=== PATIENT | female | born 1955 | race Caucasian/White ===

== ENCOUNTER 2018-03-06 17:25 | Observation (INO) ==
[~2018-03-06 17:25] MED LIST: Insulin LISPRO 300 UNITS/3 ML VIAL SQ SCH
--- NOTE | 2018-03-06 17:54 | Emergency Department Note ---
Disposition Clinical Impression: Weakness generalized Disposition: Admitted As Inpatient Condition: Fair Referrals: Rebecca Champion, ZURDO [Primary Care Provider] - Forms: ED Satisfaction Letter, Work/School Release Time of Disposition: 19:59 (Dr Matthew) Weakness HPI - General Chief complaint: ED General Medical Stated complaint: pain Time Seen by Provider: 03/06/18 17:25 Source: patient Mode of arrival: wheelchair Limitations: no limitations Nursing Notes Reviewed: Yes Vital Signs Reviewed: Yes - History of Present Illness HPI Narrative: 62-year-old female presents today secondary to progressive weakness and multiple falls in the last couple of weeks. The patient came in today secondary to fall yesterday hitting her head as well as reinjuring her left knee. Patient also complains of increasing lower extremity edema, dizziness and weakness. Today she was so weak that she landed on her left shoulder and subsequently hitting her right rib area. The patient denies any changes in her bladder or bowel habits but states decreasing by mouth intake. She says her dizziness as feeling faint and unsure if she has any associated palpitations. She denies any visual acuity changes or any focal weakness to any extremities. There is no reported slurring of her speech per her . 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 Denies: chest pain, confusion, dark stools, diaphoresis, dysuria, easy bruising, fever/chills, headaches, nausea/vomiting, myalgias, rash, shortness of breath, syncope - Related Data Home Medications Medication Instructions Recorded Confirmed Aspirin 81 mg PO DAILY 05/25/15 03/06/18 Gabapentin [Neurontin] 300 mg PO TID 05/25/15 03/06/18 Insulin Glargine,Hum.rec.anlog 47 unit SQ BID 05/25/15 03/06/18 [Lantus Solostar] Insulin Regular Human [Humulin R] 15 unit SQ TID 05/25/15 03/06/18 Isosorbide DInitrate [Isosorbide 30 mg PO BID 05/25/15 03/06/18 Dinitrate] LORazepam [Ativan] 0.5 mg PO BID 05/25/15 03/06/18 Metformin [Glucophage] 1,000 mg PO BIDWM 05/25/15 03/06/18 Metoprolol [Lopressor] 25 mg PO BID 05/25/15 03/06/18 Nitroglycerin 0.4 mg SL Q5MIN 05/25/15 03/06/18 Sertraline HCl [Zoloft] 50 mg PO HS 05/25/15 03/06/18 Simvastatin [Zocor] 20 mg PO HS 05/25/15 03/06/18 Lisinopril [Zestril] 10 mg PO DAILY 08/30/15 03/06/18 Ferrous Gluconate 324 mg PO DAILY 03/06/18 03/06/18 Lactulose 33 gm PO BID 03/06/18 03/06/18 Loratadine [Claritin] 10 mg PO DAILY 03/06/18 03/06/18 NIFEdipine [Nifedipine ER] 60 mg PO DAILY 03/06/18 03/06/18 Vit D3-Vit K/Berberine/Hops 1 each PO DAILY 03/06/18 03/06/18 [Ostera Tablet] Allergies Allergy/AdvReac Type Severity Reaction Status Date / Time Horse/Equine Containing Allergy Sneezing Verified 03/06/18 17:27 Products latex Allergy Rash Verified 03/06/18 17:27 All systems ED: reviewed and negative except as stated. 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 history - Social History Smoking Status: Never smoker Smokeless Tobacco Status: No Alcohol use: Reports: none Drug use: Reports: none Physical Exam - General Limitations: no limitations General appearance: alert - Head Head exam: atraumatic, normocephalic, normal inspection - Eye Eye exam: Present: normal appearance, PERRL, EOMI - ENT ENT exam: normal exam, normal oropharynx, mucous membranes moist - Neck Neck exam: Present: normal inspection, full ROM, trachea midline - Chest Chest inspection: Present: symmetric chest wall rise, tenderness (Tenderness to palpation on the right inferior anterior rib area) - Respiratory Respiratory exam: Present: normal lung sounds bilaterally - Cardiovascular Cardiovascular exam: Present: regular rate, normal rhythm, normal heart sounds - Abdominal Exam Abdominal exam: Present: soft, Non-Tender. Absent: tenderness, distention, guarding, rebound, rigidity - Extremities Exam Extremities exam: Present: full ROM, pedal edema - Expanded Lower Extremity Exam Hip/Pelvis exam: Present: normal inspection, full ROM Upper leg exam: Present: normal inspection, full ROM Knee exam: Present: tenderness (Tibial plateau tenderness to palpation on the left) Lower leg exam: Present: normal inspection, full ROM Ankle exam: Present: normal inspection, full ROM Foot/toe exam: Present: full ROM, tenderness (Point tenderness on the plantar aspect of the third phalanx) Neurovascular/Tendon exam: Absent: motor deficit, sensory deficit, tendon deficit - Back Exam Back exam: Present: normal inspection, full ROM. Absent: tenderness - Neurological Exam Neurological exam: Present: alert, oriented X3, CN II-XII intact, reflexes normal. Absent: normal gait (Needs assistance with ambulation), motor sensory deficit - Psychiatric Psychiatric exam: Present: normal affect, normal mood - Skin Skin exam: Present: warm, dry, intact, normal color Course Vital Signs Temperature 98 F 03/06/18 17:33 Pulse Rate 81 03/06/18 17:33 Respiratory Rate 16 03/06/18 17:33 Blood Pressure 110/86 03/06/18 17:33 O2 Sat by Pulse Oximetry 81 03/06/18 17:33 Temperature 98 F 03/06/18 17:33 Pulse Rate 81 03/06/18 17:33 Respiratory Rate 16 03/06/18 17:33 Blood Pressure 110/86 03/06/18 17:33 O2 Sat by Pulse Oximetry 81 03/06/18 17:33 Oxygen Delivery Oxygen Delivery Room Air Weakness - Differential Diagnosis Differential Diagnosis: Likely: anemia, rhabdomyolysis, dehydration, medication effect, stroke, metabolic, thyroid/endocrine disorder - Medical Records Medical records reviewed: Yes I reviewed the patient's medical records. - Lab Data Lab results reviewed: Yes I reviewed the patient's lab results. Result diagrams: 03/06/18 18:17 03/06/18 18:17 Lab Results 03/06/18 03/06/18 03/06/18 Range/Units 18:17 18:17 18:17 WBC 8.2 (4.3-11.1) K/mcL RBC 4.84 (3.82-4.97) M/mcL Hgb 14.8 (11.5-15.4) g/dL Hct 41.9 (35.3-44.9) % MCV 86.6 (83.0-100.0) fL MCH 30.6 (28.0-33.3) pg MCHC 35.3 (31.6-35.5) g/dL RDW 12.9 (11.5-14.5) % Plt Count 105 L (140-400) K/mcL MPV 11.8 (9.4-12.4) fL Immature Gran % 0.2 (0-4) % Seg Neutrophils % 72.1 % Lymphocytes % 19.2 % Monocytes % 7.1 % Eosinophils % 0.9 % Basophils % 0.5 % Neutrophils # 5.9 (1.6-8.9) K/mcL Lymphocytes # 1.6 (0.6-4.6) K/mcL Monocytes # 0.6 (0.0-1.3) K/mcL Eosinophils # 0.1 (0.0-0.6) K/mcL Basophils # 0.0 (0.0-0.2) K/mcL Sodium 136 (136-145) mEq/L Potassium 4.1 (3.5-5.1) mEq/L Chloride 98 (98-107) mEq/L Carbon Dioxide 25 (23-29) mEq/L BUN 17 (8-23) mg/dL Creatinine 0.72 (0.60-1.20) mg/dL Est GFR ( Amer) > 60 (> 60) Est GFR (Non-Af Amer) > 60 (> 60) BUN/Creatinine Ratio 24 (6-26) Glucose 338 H (70-105) mg/dL Calculated Osmolality 297 (280-300) Calcium 9.4 (8.6-10.3) mg/dL Magnesium 1.2 L (1.6-2.6) mg/dL Total Bilirubin 1.2 H (0.3-1.0) mg/dL AST 19 (13-39) Units/L ALT 22 (7-52) Units/L Alkaline Phosphatase 104 (34-104) Units/L Creatine Kinase 86 (30-223) Units/L Troponin I < 0.03 (< 0.04) ng/mL Serum Total Protein 7.1 (6.4-8.9) g/dL Albumin 3.8 (3.5-5.7) g/dL Globulin 3.3 (2.4-3.5) g/dL Albumin/Globulin Ratio 1.2 (1.1-2.2) TSH 2.305 (0.340-5.600) mcIU/mL - Radiology Data Radiology results reviewed: Yes I reviewed the patient's radiology results. 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 D/ / 03/06/2018 18:50:18 Brittney Newman MD / jane Interpreting Provider: Brittney Newman MD Chest CT 03/06/18 17:56 IMPRESSION: No evidence for acute traumatic injury to the chest. No discrete rib fracture. Findings suggestive of cirrhosis. D/ / Sherif Espinal MD / Sherif Espinal MD Interpreting Provider: Sherif Espinal MD Knee X-Ray 03/06/18 18:08 IMPRESSION: Mild degenerative osteoarthritis primarily in the patellofemoral compartment. No evidence of an acute injury. D/ / Jeff Armenta MD / Jeff Armenta MD Interpreting Provider: Jeff Armenta MD Foot X-Ray 03/06/18 18:10 IMPRESSION: Mild diffuse soft swelling. Vascular calcifications suggest diabetes. No evidence of osteomyelitis. Old healed fracture deformity of the right 3rd proximal phalanx. Plantar spur. D/ / Jeff Armenta MD / Jeff Armenta MD Interpreting Provider: Jeff Armenta MD - EKG Data EKG attestation: Yes I reviewed and interpreted this EKG. Rate: normal Rhythm: NSR [place]/QRS: left axis deviation Q waves: v1, v2 Interpretation: nonspecific ST-T wave changes
[2018-03-06 18:25] LABS: Basophils % 0.5 %; Eosinophils # 0.1 K/mcL (0.0-0.6); Eosinophils % 0.9 %; Hematocrit 41.9 % (35.3-44.9); Hemoglobin 14.8 g/dL (11.5-15.4); Immature Granulocytes % 0.2 % (0-4); Lymphocytes # 1.6 K/mcL (0.6-4.6); Lymphocytes % 19.2 %; Mean Corpuscular HGB Conc 35.3 g/dL (31.6-35.5); Mean Corpuscular Hemoglobin 30.6 pg (28.0-33.3); Mean Corpuscular Volume 86.6 fL (83.0-100.0); Mean Platelet Volume 11.8 fL (9.4-12.4); Monocytes # 0.6 K/mcL (0.0-1.3); Monocytes % 7.1 %; Neutrophils # 5.9 K/mcL (1.6-8.9); Platelet Count 105 K/mcL (140-400); Red Blood Count 4.84 M/mcL (3.82-4.97); Red Cell Distribution Width 12.9 % (11.5-14.5); Segmented Neutrophils % 72.1 %
[2018-03-06 18:41] LABS: Alanine Aminotransferase 22 Units/L (7-52); Albumin 3.8 g/dL (3.5-5.7); Albumin/Globulin Ratio 1.2 (1.1-2.2); Alkaline Phosphatase 104 Units/L (34-104); Aspartate Amino Transferase 19 Units/L (13-39); BUN/Creatinine Ratio 24 (6-26); Bilirubin,Total 1.2 mg/dL (0.3-1.0); Blood Urea Nitrogen 17 mg/dL (8-23); Calcium 9.4 mg/dL (8.6-10.3); Carbon Dioxide 25 mEq/L (23-29); Chloride 98 mEq/L (98-107); Globulin 3.3 g/dL (2.4-3.5); Glucose 338 mg/dL (70-105); Magnesium 1.2 mg/dL (1.6-2.6); Osmolality,Calculated 297 (280-300); Potassium 4.1 mEq/L (3.5-5.1); Sodium 136 mEq/L (136-145); Total Protein 7.1 g/dL (6.4-8.9); eGFR For African Americans > 60 (> 60); eGFR For Non-African Americans > 60 (> 60)
[2018-03-06 18:51] LABS: Troponin I < 0.03 ng/mL (< 0.04)
[2018-03-06 19:03] LABS: Thyroid Stimulating Hormone 2.305 mcIU/mL (0.340-5.600)
[2018-03-06] MEDS ORDERED: Magnesium Oxide 400 MG TABLET PO STA (19:10)
[2018-03-06] MEDS ORDERED: Lactulose 200 GM/300 ML (for enema) RC SCH (22:26)
[2018-03-06] MEDS ORDERED: Naloxone 0.4 MG/ML INJ IVP PRN (22:26)
[2018-03-06] MEDS ORDERED: Nitroglycerin 0.4 MG TAB.SUBL SL SCH (22:26)
[2018-03-06] MEDS ORDERED: Insulin DETEMIR 100 UNIT/ML per UNIT SQ ONE (23:15)
[2018-03-06] MEDS ORDERED: Lactulose 200 GM, Sodium Chloride IRRigation 700 ML RC SCH (23:15)
[2018-03-07] MEDS: Gabapentin 300 MG CAPSULE PO SCH ×4 (00:19→21:15)
[2018-03-07] MEDS: *HR* LORazepam 0.5 MG TABLET PO SCH ×2 (00:19→08:12)
[2018-03-07] MEDS: *HR* OxyCODONE Immed Rel 5 MG TABLET PO PRN (02:27)
[2018-03-07] MEDS: *HR* Metformin 500 MG TABLET PO SCH ×2 (08:11→16:48)
[2018-03-07] MEDS: Aspirin 81 MG TAB.CHEW PO SCH (08:12)
[2018-03-07] MEDS ORDERED: Insulin DETEMIR 100 UNIT/ML X5UNITS SQ SCH (09:00)
[2018-03-07] MEDS ORDERED: NIFEdipine XL (24 HR) 60 MG TAB.ER.24 PO SCH (09:00)
[2018-03-07] MEDS ORDERED: OSTERA PO SCH (09:00)
[2018-03-07] MEDS ORDERED: Loratadine 10 MG TABLET PO SCH (09:00)
[2018-03-07] MEDS ORDERED: Lactulose Oral Soln 20 GM/30 ML UDC PO SCH (09:00)
[2018-03-07] MEDS ORDERED: NIFEdipine XL (24 HR) 30 MG TAB.ER.24 PO SCH (09:00)
--- NOTE | 2018-03-07 10:26 | Internal Med History&Physical ---
Date of Encounter: 03/07/18 Time of Encounter: 09:50 Assessment and Plan (1) Multiple falls Current visit: Yes Status: Acute Possibly multifactorial etiology including orthostatic hypotension, post stroke effect, and medications. She will have physical therapy and occupational therapy evaluations. Orthostatic vital signs will be done and medications will be adjusted. (2) Hypertension Current visit: Yes Status: Chronic Will monitor blood pressure and check orthostatic vital signs. Qualifiers: Hypertension type: essential hypertension Qualified Code(s): I10 - Essential (primary) hypertension (3) Low vitamin D level Current visit: Yes Status: Acute Vitamin D level was 6 on 10/26/2017. Recheck in a.m. (4) Hypomagnesemia Current visit: Yes Status: Acute Magnesium level in emergency room was 1.2. Etiology not obvious. Will give supplemental magnesium and monitor labs. (5) Cirrhosis Current visit: No Status: Chronic Monitor LFTs. Albumin was normal at 3.8 in emergency room. INR was normal on 10/26/2017. Qualifiers: Hepatic cirrhosis type: unspecified hepatic cirrhosis Ascites presence: without ascites Qualified Code(s): K74.60 - Unspecified cirrhosis of liver (6) DM2 (diabetes mellitus, type 2) Current visit: No Status: Chronic Hemoglobin A1c was 8.4% on 04/07/2016. Recheck in a.m. Qualifiers: Diabetes mellitus longterm insulin use: with terminal operator use Diabetes mellitus complication status: without complication Qualified Code(s): E11.9 - Type 2 diabetes mellitus without complications; Z79.4 - intermediate card tender (current) use of insulin Internal Medicine - H&P: HPI Chief complaint: Weakness and multiple falls Admitted From: Emergency Dept Plans for Post Hospital Care: Home History of present illness: Ms. Jenkins is a 62 year old female who came to emergency room stating she has had increasing falls over the past 4 months. Her most recent fall was March 05. She states she feels dizzy and lightheaded but does not have syncope or near syncope. She reports she loses her balance and falls to the floor despite using a cane for walking assistance. She sustained left proximal humerus fracture October 2017 secondary to a fall. She was evaluated in emergency room and admitted to [facility] for ongoing care needs. She has DJD but denies other bone joint or muscle disorders. She denies past CVA although head CT in emergency room showed large old right hemispheric infarct. She denies seizures. Past Med Surg Social Fam HX - Past Medical History Medical history: asthma, diabetes, hyperlipidemia, hypertension, liver disease, other Additional medical history: Metabolic syndrome Psychiatric history: anxiety, depression - Past Surgical History Surgical History: cataract, cholecystectomy Additional surgical history: cardiac cath- no stents - Social History Smoking Status: Never smoker Smokeless Tobacco Status: No Alcohol use: none Drug use: none - Family History Mother Hx Family Cardiac Disorders: Yes (CAD) Hx Family Cancer: No (No colon or female cancer in family) Internal Medicine - H&P: Meds Aspirin 81 mg PO DAILY 05/25/15 [History] Gabapentin [Neurontin] 300 mg PO TID 05/25/15 [History] Insulin Glargine,Hum.rec.anlog [Lantus Solostar] 47 unit SQ DAILY 05/25/15 [ History] Insulin Regular Human [Humulin R] 15 unit SQ TID 05/25/15 [History] Isosorbide DInitrate [Isosorbide Dinitrate] 30 mg PO BID 05/25/15 [History] LORazepam [Ativan] 0.5 mg PO BID 05/25/15 [History] Metformin [Glucophage] 1,000 mg PO BIDWM 05/25/15 [History] Metoprolol [Lopressor] 25 mg PO BID 05/25/15 [History] Nitroglycerin 0.4 mg SL Q5MIN 05/25/15 [History] Sertraline HCl [Zoloft] 50 mg PO HS 05/25/15 [History] Simvastatin [Zocor] 20 mg PO HS 05/25/15 [History] Lisinopril [Zestril] 10 mg PO DAILY 08/30/15 [History] Ferrous Gluconate 324 mg PO DAILY 03/06/18 [History] Lactulose 33 gm PO BID 03/06/18 [History] Loratadine [Claritin] 10 mg PO DAILY 03/06/18 [History] NIFEdipine [Nifedipine ER] 60 mg PO DAILY 03/06/18 [History] Vit D3-Vit K/Berberine/Hops [Ostera Tablet] 1 each PO DAILY 03/06/18 [History] 3 Allergy/AdvReac Type Severity Reaction Status Date / Time Horse/Equine Containing Allergy Sneezing Verified 03/06/18 17:27 Products latex Allergy Rash Verified 03/06/18 17:27 All Systems PM: A 10-system review of systems was performed and is negative for pertinent findings except as documented above in the HPI. Review of systems: Gen.: She states her weight has been stable the past few months Cardiovascular: She has history of hypertension but denies IA heart failure angina DVT or pulmonary embolus. Echocardiogram done 06/15/2016 showed LVEF of 60-65% with mild diastolic dysfunction reported. There was mild aortic regurgitation and mild mitral regurgitation. The estimate RVSP was 25 mmHg. The interventricular septum thickness was increased at 1.37 cm. Posterior wall thickness was normal at 1.08 cm. Regadenoson stress test 06/15/2016 showed EKG and perfusion imaging negative for ischemia. Respiratory: She is a lifelong nonsmoker. She thinks she was told she had COPD in the past but does not use home oxygen. She denies other lung disease. GI: She has been diagnosed with cirrhosis secondary to NAFLD. She has had cholecystectomy. She denies other disorders of her liver or exocrine pancreas : She denies hematuria dysuria or kidney stones. She reports frequent urination. Neurologic: As per history of present illness Endocrine: She was diagnosed with DM 2 approximately 2008. She has hyperlipidemia but denies thyroid disease Hematology/oncology: She denies blood disorders cancers or anemia Psychiatric: She has anxiety and depression but denies other mental health issues. [place] skeletal: As per history of present illness - Constitutional Vitals: Temp Pulse Resp BP Pulse Ox 98.3 F 80 16 94/63 97 03/07/18 10:19 03/07/18 10:19 03/07/18 10:19 03/07/18 10:19 03/07/18 10:19 Exam: Gen.: She is a well-developed well-nourished female resting in bed who appears in no acute distress HEENT: Head is atraumatic and normocephalic. She has significant alopecia. Eyes: EOMI. There is no scleral icterus. Mouth: Mucosa is moist. Neck: Supple and nontender. There is no thyromegaly or adenopathy noted. Heart: Regular without murmurs gallops or ectopics Lungs: No wheezes or crackles are heard. Abdomen: Soft and nontender. No masses or guarding are noted. Extremities: There is no cyanosis edema or clubbing noted. Dorsalis pedis and posterior tibial pulses are trace to 1+ palpable bilaterally. She has had a traumatic avulsion of the left fourth toenail. Neurologic: Mental status: She is talkative and a good historian. Cranial nerves: Smile is symmetric. Forehead wrinkles bilaterally. Tongue protrudes midline. EOMI. Motor: There is no pronator drift. Cerebellar: Finger to nose is intact bilaterally. Skin: Warm and dry. She has superficial abrasion/laceration of her left patella area from recent fall. Internal Med - H&P Results - Labs CBC & Chem 7: 03/06/18 18:17 03/06/18 18:17
[2018-03-07] MEDS: NIFEdipine XL (24 HR) 30 MG TAB.ER.24 PO SCH (10:57)
[2018-03-07] MEDS: Insulin LISPRO 300 UNITS/3 ML VIAL SQ SCH ×3 (11:02→16:49)
[2018-03-07] MEDS: Insulin DETEMIR 100 UNIT/ML X5UNITS SQ SCH ×2 (11:12→21:08)
[2018-03-07] MEDS: Ondansetron 4 MG/2 ML VIAL IVP PRN (11:12)
[2018-03-07] MEDS: OSTERA PO SCH (11:13)
[2018-03-07] MEDS ORDERED: Nitroglycerin 0.4 MG TAB.SUBL SL PRN (21:01)
[2018-03-07] MEDS ORDERED: Insulin DETEMIR 100 UNIT/ML per UNIT SQ ONE (21:04)
[2018-03-07] MEDS: Magnesium Oxide 400 MG TABLET PO SCH (21:15)
[2018-03-08 07:25] LABS: Phosphorous 4.4 mg/dL (2.7-4.5)
[2018-03-08] MEDS: Insulin LISPRO 300 UNITS/3 ML VIAL SQ SCH ×3 (07:36→16:01)
[2018-03-08] MEDS: Aspirin 81 MG TAB.CHEW PO SCH (08:15)
[2018-03-08] MEDS: Magnesium Oxide 400 MG TABLET PO SCH ×2 (08:16→23:13)
[2018-03-08] MEDS: Gabapentin 300 MG CAPSULE PO SCH ×3 (08:16→23:13)
[2018-03-08] MEDS: NIFEdipine XL (24 HR) 30 MG TAB.ER.24 PO SCH (08:16)
[2018-03-08] MEDS: *HR* Metformin 500 MG TABLET PO SCH ×2 (08:16→17:11)
[2018-03-08] MEDS: Lactulose Oral Soln 20 GM/30 ML UDC PO SCH (08:17)
[2018-03-08] MEDS: *HR* OxyCODONE Immed Rel 5 MG TABLET PO PRN ×2 (08:24→23:28)
[2018-03-08 09:43] LABS: Estimated Average Glucose 249 mg/dl; Hemoglobin A1C 10.3 %
[2018-03-08] MEDS: Insulin DETEMIR 100 UNIT/ML X5UNITS SQ SCH (09:45)
--- NOTE | 2018-03-08 11:45 | Internal Med Progress Note ---
Date of Encounter: 03/08/18 Time of Encounter: 11:35 - Assessment and plan (1) Multiple falls Current Visit: Yes Status: Acute Assessment and plan: March 08. Continue therapy interventions. Orthostatic vital signs not recorded. Blood pressure appears to be borderline low frequently. Will discontinue Procardia. She states she is willing to go to SNF for ongoing therapy needs. (2) Hypertension Current Visit: Yes Status: Chronic Assessment and plan: March 08. Blood pressure borderline low periodically. Discontinue Procardia. Qualifiers: Hypertension type: essential hypertension Qualified Code(s): I10 - Essential (primary) hypertension (3) Low vitamin D level Current Visit: Yes Status: Acute Assessment and plan: March 08. Vitamin D level pending (4) Hypomagnesemia Current Visit: Yes Status: Acute Assessment and plan: March 08. Continue magnesium supplement. Recheck labs in a.m. (5) Cirrhosis Current Visit: No Status: Chronic Assessment and plan: March 08. Monitor labs. Qualifiers: Hepatic cirrhosis type: unspecified hepatic cirrhosis Ascites presence: without ascites Qualified Code(s): K74.60 - Unspecified cirrhosis of liver (6) DM2 (diabetes mellitus, type 2) Current Visit: No Status: Chronic Assessment and plan: March 08. Hemoglobin A1c has risen to 10.3 %. Continue Glucophage, Levemir and Accu-Cheks with SSI. Qualifiers: Diabetes mellitus rat exterminator insulin use: with rat exterminator use Diabetes mellitus complication status: without complication Qualified Code(s): E11.9 - Type 2 diabetes mellitus without complications; Z79.4 - alf (current) use of insulin - Subjective Interval history: March 08. She has no new complaints. - Constitutional Vitals: Temp Pulse Resp BP Pulse Ox 98.1 F 67 16 103/62 96 03/08/18 10:25 03/08/18 10:25 03/08/18 10:25 03/08/18 10:25 03/08/18 10:25 Exam: She is resting comfortably in bed and appears in no acute distress. She is more alert and has faster response times to questions. Her affect is overall cheerful. I reviewed her medications and lab results. Internal Medicine: Result - Labs CBC & Chem 7: 03/06/18 18:17 03/06/18 18:17 Consult Discharge Plan - Plan Referrals: Rebecca Champion CNP [Primary Care Provider] - 1 week
[2018-03-08] MEDS: OSTERA PO SCH (13:19)
[2018-03-08] MEDS: Ondansetron 4 MG/2 ML VIAL IVP PRN (15:47)
--- NOTE | 2018-03-08 20:01 | Electrocardiograph Report ---
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
[2018-03-08] MEDS ORDERED: Insulin DETEMIR 100 UNIT/ML per UNIT SQ ONE (23:01)
[2018-03-09] MEDS: Insulin DETEMIR 100 UNIT/ML X5UNITS SQ SCH ×2 (00:27→08:51)
[2018-03-09] MEDS: Insulin LISPRO 300 UNITS/3 ML VIAL SQ SCH (08:39)
[2018-03-09] MEDS: Magnesium Oxide 400 MG TABLET PO SCH (08:48)
[2018-03-09] MEDS: Gabapentin 300 MG CAPSULE PO SCH (08:48)
[2018-03-09] MEDS: Aspirin 81 MG TAB.CHEW PO SCH (08:48)
[2018-03-09] MEDS: *HR* Metformin 500 MG TABLET PO SCH (08:48)
[2018-03-09] MEDS: Lactulose Oral Soln 20 GM/30 ML UDC PO SCH (08:49)
[2018-03-09] MEDS: OSTERA PO SCH (08:51)
[2018-03-09] MEDS: NIFEdipine XL (24 HR) 30 MG TAB.ER.24 PO SCH (08:51)
[2018-03-09 12:15] VITALS: BP 107/70
--- NOTE | 2018-03-09 12:18 | Discharge Summary ---
Date of Encounter: 03/09/18 Time of Encounter: 12:10 - Discharge Diagnosis (1) Multiple falls Priority: Primary Status: Acute (2) Hypertension Priority: Secondary Status: Chronic Qualifiers: Hypertension type: essential hypertension Qualified Code(s): I10 - Essential (primary) hypertension (3) Low vitamin D level Priority: Secondary Status: Resolved (4) Hypomagnesemia Priority: Secondary Status: Acute (5) Cirrhosis Priority: Secondary Status: Chronic Qualifiers: Hepatic cirrhosis type: unspecified hepatic cirrhosis Ascites presence: without ascites Qualified Code(s): K74.60 - Unspecified cirrhosis of liver (6) DM2 (diabetes mellitus, type 2) Priority: Secondary Status: Chronic Qualifiers: Diabetes mellitus mcc insulin use: with ocean transportation intermediary use Diabetes mellitus complication status: without complication Qualified Code(s): E11.9 - Type 2 diabetes mellitus without complications; Z79.4 - detention (current) use of insulin Hospital course: Ms. Jenkins is a 62 year old female who came to emergency room stating she has had increasing falls over the past 4 months. Her most recent fall was March 05. She states she feels dizzy and lightheaded but does not have syncope or near syncope. She reports she loses her balance and falls to the floor despite using a cane for walking assistance. She sustained left proximal humerus fracture October 2017 secondary to a fall. She was evaluated in emergency room and admitted to [facility] for ongoing care needs. Initial orders were written by the emergency room physician. I saw her on March 07 and performed a history and physical. Procardia was decreased and eventually discontinued. Blood pressure remained satisfactory. She will remain off this at discharge. Physical therapy and occupational therapy evaluations were done. It was felt she would benefit from ongoing therapy and she will be discharged to [facility]. Vitamin D level returned normal at 42. TSH was normal at 2.305. Magnesium level in emergency room returned low at 1.2. She will be given supplemental magnesium and labs will be monitored. Hemoglobin returned elevated at 10.3%. Medication doses were adjusted and blood sugars will be monitored at the [facility]. On March 09 arrangements were complete for her to be discharged to [facility]. Anticipated length of stay is 1-2 weeks. She will follow with me there. - Time Spent with Patient Total time spent providing and/or coordinating discharge services: - Discharge Medications Home Medications: Aspirin 81 mg PO DAILY 05/25/15 [History] Gabapentin [Neurontin] 300 mg PO TID 05/25/15 [History] Insulin Glargine,Hum.rec.anlog [Lantus Solostar] 47 unit SQ DAILY 05/25/15 [ History] Insulin Regular Human [Humulin R] 15 unit SQ TID 05/25/15 [History] Isosorbide DInitrate [Isosorbide Dinitrate] 30 mg PO BID 05/25/15 [History] LORazepam [Ativan] 0.5 mg PO BID 05/25/15 [History] Metformin [Glucophage] 1,000 mg PO BIDWM 05/25/15 [History] Metoprolol [Lopressor] 25 mg PO BID 05/25/15 [History] Nitroglycerin 0.4 mg SL Q5MIN 05/25/15 [History] Sertraline HCl [Zoloft] 50 mg PO HS 05/25/15 [History] Simvastatin [Zocor] 20 mg PO HS 05/25/15 [History] Lisinopril [Zestril] 10 mg PO DAILY 08/30/15 [History] Ferrous Gluconate 324 mg PO DAILY 03/06/18 [History] Lactulose 33 gm PO BID 03/06/18 [History] Loratadine [Claritin] 10 mg PO DAILY 03/06/18 [History] NIFEdipine [Nifedipine ER] 60 mg PO DAILY 03/06/18 [History] Vit D3-Vit K/Berberine/Hops [Ostera Tablet] 1 each PO DAILY 03/06/18 [History] Allergies/Adverse Reactions: 3 Allergy/AdvReac Type Severity Reaction Status Date / Time Horse/Equine Containing Allergy Sneezing Verified 03/06/18 17:27 Products latex Allergy Rash Verified 03/06/18 17:27 Date of admission: 03/06/18 20:08 Primary care physician: Rebecca Champion Consults: 03/06/18 22:47 Consult to Care Transition Mgr [CONS] Routine Reason for SW Consult: Multiple falls when alone at home. 03/07/18 10:21 Consult to Occupational Therapy [CONS] Routine Comment: Evaluate, develop and implement POC Reason for Consult: Weakness and multiple falls Does patient have active BEDREST order?: No Is patient medically & hemodynamically stable?: Yes Patient assessed for mobility or mobilized this visit?: Yes Consult to Physical Therapy [CONS] Routine Comment: Evaluate, develop and implement POC Reason for Consult: Weakness and multiple falls Does patient have active BEDREST order?: No Is patient medically & hemodynamically stable?: Yes Patient assessed for mobility or mobilized this visit?: Yes - Constitutional Vitals: Temp Pulse Resp BP Pulse Ox 97.6 F 67 16 107/70 100 03/09/18 11:38 03/09/18 11:38 03/09/18 11:38 03/09/18 11:38 03/09/18 11:38 - Patient Status Disposition: Transfer SNF Condition: Fair - Discharge Instructions - Diet and Activity Activity: as per physical therapy Diet: diabetic diet
--- NOTE | 2018-03-09 12:29 | Physician Discharge Referral ---
ExtendedCare Referral Info Transfer To: [facility] Provider in Charge: Vipul Provider in Charge after Transfer: PCP (Vipul) - Diagnosis (1) Multiple falls Priority: Primary Status: Acute (2) Hypertension Priority: Secondary Status: Chronic (3) Low vitamin D level Priority: Secondary Status: Resolved (4) Hypomagnesemia Priority: Secondary Status: Acute (5) Cirrhosis Priority: Secondary Status: Chronic (6) DM2 (diabetes mellitus, type 2) Priority: Secondary Status: Chronic Prognosis: Good Aware of Diagnosis: Patient Aware of Prognosis: Patient - Transfer Medications Prescriptions: Magnesium Oxide [Mag-Ox] 400 mg PO DAILY 30 Days tablet Home Medications: Aspirin 81 mg PO DAILY 05/25/15 [History] Gabapentin [Neurontin] 300 mg PO TID 05/25/15 [History] Isosorbide DInitrate [Isosorbide Dinitrate] 30 mg PO BID 05/25/15 [History] Metformin [Glucophage] 1,000 mg PO BIDWM 05/25/15 [History] Metoprolol [Lopressor] 25 mg PO BID 05/25/15 [History] Nitroglycerin 0.4 mg SL Q5MIN 05/25/15 [History] Sertraline HCl [Zoloft] 50 mg PO HS 05/25/15 [History] Simvastatin [Zocor] 20 mg PO HS 05/25/15 [History] Lisinopril [Zestril] 10 mg PO DAILY 08/30/15 [History] Vit D3-Vit K/Berberine/Hops [Ostera Tablet] 1 each PO DAILY 03/06/18 [History] Insulin Glargine,Hum.rec.anlog [Lantus Solostar] 60 unit SQ DAILY #0 03/09/18 [ Rx] Magnesium Oxide [Mag-Ox] 400 mg PO DAILY 30 Days tablet 03/09/18 [Rx] Allergies/Adverse Reactions: 3 Allergy/AdvReac Type Severity Reaction Status Date / Time Horse/Equine Containing Allergy Sneezing Verified 03/06/18 17:27 Products latex Allergy Rash Verified 03/06/18 17:27 - Respiratory Orders Smoking Cessation: Smoking cessation has been advised. For more information, call the [place] Tobacco Quit Line at 9-637-OYYQ-NOW. - Lab Orders Lab Orders: Other (include drug levels w/frequency) (CBC with differential, BMP , lipid profile, magnesium level in 5 days) - Mobility Orders Ambulate - Rehabiliation Orders Rehab Potential: Fair Rehab Orders: Evaluation for Physical Therapy, Evaluation for Occupational Therapy CERTIFICATION: I certify that the transfer of the above named patient to an Extended Care Facility is necessary for the continuing treatment of the diagnosis listed. The above information is true and accurate reflection of patient's current condition. Confidential - Redisclosure prohibited without a patient's written consent.
== END 2018-03-09 13:40 ==
LOC: EMEROOPIK 17:25 → INPPIK 17:25
PROVIDERS: ADMIT Emergency Medicine; ATTEND Internal Medicine

== ENCOUNTER 2018-04-11 18:17 | Observation (INO) ==
--- NOTE | 2018-04-11 18:47 | Emergency Department Note ---
Disposition Clinical Impression: Generalized weakness, Hyponatremia, Hyperglycemia, Hyperbilirubinemia, Elevated lactic acid level Vomiting Qualifiers: Vomiting type: unspecified Vomiting Intractability: non-intractable Nausea presence: with nausea Qualified Code(s): R11.2 - Nausea with vomiting, unspecified Disposition: Admitted As Inpatient Condition: Fair Referrals: Rebecca Champion CNP [Primary Care Provider] - Forms: ED Satisfaction Letter Time of Disposition: 21:32 Nausea/Vomiting/Diarrhea HPI - General Chief complaint: ED Abdominal Pain Stated complaint: NAUSEA/VOMITING Time Seen by Provider: 04/11/18 18:39 Source: patient, family Mode of arrival: private vehicle Limitations: no limitations Nursing Notes Reviewed: Yes Vital Signs Reviewed: Yes - History of Present Illness HPI Narrative: Patient reports that she has generalized weakness and currently is unable to walk. She is noted little increasing urinary frequency but does not have much other systemic complaints other than nausea, vomiting some diarrhea. She states she has thrown up about 4 times today and this is been productive of bile without blood or mucus. She reports "slight abdominal pain which is only described as "not a lot". She states she has occasional diarrhea and she states she takes medicine 3 times a day that makes her have diarrhea. She states she has liver disease and this sounds to likely be lactulose. She denies a recent fall or injury but has had falls in the past because of weakness. She denies chest pain, palpitations, headaches or visual changes. She states she only gets headaches "once in the while that are not bad". She reports occasional chronic cough has been going on forever and occasionally produces some phlegm. She denies shortness of breath. She states she had a feeling of some fevers and chills last night but did not check her temperature. She denies any extremity injuries nor extremity numbness, tingling or weakness. She denies ill exposures, foodborne concerns, recent antibiotics or travel. She states she recently was in rehabilitation for weakness and just got out on April 05. She states she was followed by Dr. Matthew in the retirement. Pt Subjective Complaint: nausea, vomiting, diarrhea Onset (ago): day(s) Description of emesis: bilious Number of episodes of emesis: 4 Description of Diarrhea: water Associated Abdominal Pain: Yes If pain, Location of pain: diffuse Severity: mild Quality: cramping Consistency: intermittent Improves with: nothing Worsens with: eating Associated symptoms: Reports: cough, fever/chills, loss of appetite, malaise, nausea/vomiting, weakness. Denies: myalgias, chest pain, diaphoresis, headaches , rash, dysuria, shortness of breath, syncope - Related Data Home Medications Medication Instructions Recorded Confirmed Aspirin 81 mg PO DAILY 05/25/15 04/11/18 Gabapentin [Neurontin] 300 mg PO TID 05/25/15 04/11/18 Isosorbide DInitrate [Isosorbide 30 mg PO BID 05/25/15 04/11/18 Dinitrate] Metformin [Glucophage] 1,000 mg PO BIDWM 05/25/15 04/11/18 Metoprolol [Lopressor] 25 mg PO BID 05/25/15 04/11/18 Nitroglycerin 0.4 mg SL Q5MIN 05/25/15 04/11/18 Sertraline HCl [Zoloft] 50 mg PO HS 05/25/15 04/11/18 Simvastatin [Zocor] 20 mg PO HS 05/25/15 04/11/18 Lisinopril [Zestril] 10 mg PO DAILY 08/30/15 04/11/18 Vit D3-Vit K/Berberine/Hops 1 each PO DAILY 03/06/18 04/11/18 [Ostera Tablet] Previous Rx's Medication Instructions Recorded Insulin Glargine,Hum.rec.anlog 60 unit SQ DAILY #0 03/09/18 [Lantus Solostar] Magnesium Oxide [Mag-Ox] 400 mg PO DAILY 30 Days tablet 03/09/18 Allergies Allergy/AdvReac Type Severity Reaction Status Date / Time Horse/Equine Containing Allergy Sneezing Verified 04/11/18 18:18 Products latex Allergy Rash Verified 04/11/18 18:18 All systems ED: reviewed and negative except as stated. Past Medical History - Past Medical History Attestation: Yes The following information was validated with the patient. Source: patient, old records reviewed, nursing notes reviewed Medical history: Reports: asthma, cirrhosis, CVA, diabetes, GERD, hyperlipidemia , hypertension, liver disease, TIA, other Surgical history: Reports: cataract, cholecystectomy Psychiatric history: Reports: anxiety, depression SERVER history: Reports: no SERVER history - Social History Smoking Status: Never smoker Smokeless Tobacco Status: No Alcohol use: Reports: none Drug use: Reports: none Physical Exam - General Limitations: no limitations General appearance: alert, in no apparent distress - Head Head exam: atraumatic, normocephalic, normal inspection - Eye Eye exam: Present: normal appearance, PERRL, EOMI. Absent: conjunctival injection - ENT ENT exam: normal exam, normal oropharynx, mucous membranes moist - Neck Neck exam: Present: normal inspection, full ROM, trachea midline. Absent: tenderness, meningismus, lymphadenopathy - Chest Chest inspection: Present: normal inspection, symmetric chest wall rise - Respiratory Respiratory exam: Present: normal lung sounds bilaterally. Absent: respiratory distress, wheezes, prolonged expiratory phase - Cardiovascular Cardiovascular exam: Present: regular rate, normal rhythm, tachycardia, normal heart sounds - Abdominal Exam Abdominal exam: Present: soft, Non-Tender, normal bowel sounds. Absent: tenderness, distention, guarding, rebound, rigidity, Saini's sign, tenderness at McBurney's Point, pulsatile mass, hernia - Extremities Exam Extremities exam: Present: normal inspection, full ROM, normal capillary refill. Absent: tenderness, pedal edema, calf tenderness - Expanded Lower Extremity Exam Neurovascular/Tendon exam: Present: normal capillary refill. Absent: motor deficit, sensory deficit, tendon deficit Gait: not tested/not observed - Back Exam Back exam: Present: normal inspection, full ROM. Absent: tenderness, CVA tenderness (R), CVA tenderness (L) - Neurological Exam Neurological exam: Present: alert, oriented X3 - Psychiatric Psychiatric exam: Present: normal affect, normal mood - Skin Skin exam: Present: warm, dry, intact, pallor. Absent: diaphoresis Course Course Narrative: All lab and imaging is discussed with the patient and subsequently with Dr. Matthew. She is continued on IV fluids, subcutaneous insulin protocol and Zofran for nausea. She will have a repeat lactic acid as well as repeat CBC, basic metabolic panel in the morning. This sounds to be more of a viral and gastroenteritis picture. Dr. Matthew is agreeable to observing without antibiotic coverage at this time. Do not believe this represents a bacterial sepsis syndrome. Vital Signs Temperature 98.9 F 04/11/18 18:20 Pulse Rate 104 04/11/18 18:20 Respiratory Rate 22 04/11/18 18:20 Blood Pressure 179/89 04/11/18 18:20 O2 Sat by Pulse Oximetry 97 04/11/18 18:20 Temperature 99.9 F H 04/11/18 21:16 Pulse Rate 106 04/11/18 21:16 Respiratory Rate 24 04/11/18 21:16 Blood Pressure 200/100 04/11/18 21:16 O2 Sat by Pulse Oximetry 96 04/11/18 21:16 Oxygen Delivery Oxygen Delivery Room Air Nausea/Vomiting/Diarrhea - Lab Data Lab results reviewed: Yes I reviewed the patient's lab results. Result diagrams: 04/11/18 19:04 04/11/18 19:04 Lab Results 04/11/18 04/11/18 04/11/18 Range/Units 18:40 19:04 19:04 WBC 11.3 H (4.3-11.1) K/mcL RBC 4.78 (3.82-4.97) M/mcL Hgb 14.4 (11.5-15.4) g/dL Hct 41.8 (35.3-44.9) % MCV 87.4 (83.0-100.0) fL MCH 30.1 (28.0-33.3) pg MCHC 34.4 (31.6-35.5) g/dL RDW 13.8 (11.5-14.5) % Plt Count 123 L (140-400) K/mcL MPV 10.6 (9.4-12.4) fL Immature Gran % 0.4 (0-4) % Seg Neutrophils % 83.8 % Lymphocytes % 9.9 % Monocytes % 5.8 % Eosinophils % 0.0 % Basophils % 0.1 % Neutrophils # 9.5 H (1.6-8.9) K/mcL Lymphocytes # 1.1 (0.6-4.6) K/mcL Monocytes # 0.7 (0.0-1.3) K/mcL Eosinophils # 0.0 (0.0-0.6) K/mcL Basophils # 0.0 (0.0-0.2) K/mcL Sodium 126 L (136-145) mEq/L Potassium 3.9 (3.5-5.1) mEq/L Chloride 89 L (98-107) mEq/L Carbon Dioxide 21 L (23-29) mEq/L BUN 22 (8-23) mg/dL Creatinine 0.81 (0.60-1.20) mg/dL Est GFR ( Amer) > 60 (> 60) Est GFR (Non-Af Amer) > 60 (> 60) BUN/Creatinine Ratio 27 H (6-26) Glucose 424 H (70-105) mg/dL Calculated Osmolality 283 (280-300) Lactic Acid (0.5-2.2) mmol/L Calcium 8.8 (8.6-10.3) mg/dL Total Bilirubin 2.3 H (0.3-1.0) mg/dL Direct Bilirubin 0.6 H (0.0-0.2) mg/dL Indirect Bilirubin 1.7 H (0.0-1.2) mg/dL AST 24 (13-39) Units/L ALT 28 (7-52) Units/L Alkaline Phosphatase 86 (34-104) Units/L Serum Total Protein 7.4 (6.4-8.9) g/dL Albumin 3.9 (3.5-5.7) g/dL Globulin 3.5 (2.4-3.5) g/dL Albumin/Globulin Ratio 1.1 (1.1-2.2) Amylase 24 L (29-103) Units/L Lipase 4 L (11-82) Units/L Urine Color Yellow (Yellow) Urine Clarity Clear (Clear) Urine pH 6.0 (5.0-8.0) pH Units Ur Specific [place] 1.020 (1.010-1.025) Urine Protein >=300 H (Neg-Trace) mg/dL Urine Glucose (UA) >=1000 H (Normal) mg/dL Urine Ketones 40 H (Negative) mg/dL Urine Blood Moderate H (Negative) Urine Nitrite Negative (Negative) Urine Bilirubin Negative (Negative) Urine Urobilinogen Normal (Normal) mg/dL Ur Leukocyte Esterase Negative (Negative) Urine Microscopic RBC 0-3 (0-3) per hpf Urine Microscopic WBC 0-3 (0-3) per hpf Ur Squamous Epith Cells Moderate H (None-Few) per lpf Urine Bacteria Few (None-Few) per hpf Urine Yeast Few H (None Seen) per hpf Ur Culture Indicated? NO (NO) 04/11/18 Range/Units 19:04 WBC (4.3-11.1) K/mcL RBC (3.82-4.97) M/mcL Hgb (11.5-15.4) g/dL Hct (35.3-44.9) % MCV (83.0-100.0) fL MCH (28.0-33.3) pg MCHC (31.6-35.5) g/dL RDW (11.5-14.5) % Plt Count (140-400) K/mcL MPV (9.4-12.4) fL Immature Gran % (0-4) % Seg Neutrophils % % Lymphocytes % % Monocytes % % Eosinophils % % Basophils % % Neutrophils # (1.6-8.9) K/mcL Lymphocytes # (0.6-4.6) K/mcL Monocytes # (0.0-1.3) K/mcL Eosinophils # (0.0-0.6) K/mcL Basophils # (0.0-0.2) K/mcL Sodium (136-145) mEq/L Potassium (3.5-5.1) mEq/L Chloride (98-107) mEq/L Carbon Dioxide (23-29) mEq/L BUN (8-23) mg/dL Creatinine (0.60-1.20) mg/dL Est GFR ( Amer) (> 60) Est GFR (Non-Af Amer) (> 60) BUN/Creatinine Ratio (6-26) Glucose (70-105) mg/dL Calculated Osmolality (280-300) Lactic Acid 3.3 H (0.5-2.2) mmol/L Calcium (8.6-10.3) mg/dL Total Bilirubin (0.3-1.0) mg/dL Direct Bilirubin (0.0-0.2) mg/dL Indirect Bilirubin (0.0-1.2) mg/dL AST (13-39) Units/L ALT (7-52) Units/L Alkaline Phosphatase (34-104) Units/L Serum Total Protein (6.4-8.9) g/dL Albumin (3.5-5.7) g/dL Globulin (2.4-3.5) g/dL Albumin/Globulin Ratio (1.1-2.2) Amylase (29-103) Units/L Lipase (11-82) Units/L Urine Color (Yellow) Urine Clarity (Clear) Urine pH (5.0-8.0) pH Units Ur Specific [place] (1.010-1.025) Urine Protein (Neg-Trace) mg/dL Urine Glucose (UA) (Normal) mg/dL Urine Ketones (Negative) mg/dL Urine Blood (Negative) Urine Nitrite (Negative) Urine Bilirubin (Negative) Urine Urobilinogen (Normal) mg/dL Ur Leukocyte Esterase (Negative) Urine Microscopic RBC (0-3) per hpf Urine Microscopic WBC (0-3) per hpf Ur Squamous Epith Cells (None-Few) per lpf Urine Bacteria (None-Few) per hpf Urine Yeast (None Seen) per hpf Ur Culture Indicated? (NO) - Radiology Data Radiology results reviewed: Yes I reviewed the patient's radiology results. Impressions Abdomen/Pelvis CT 04/11/18 19:50 IMPRESSION: Findings compatible with cirrhosis and portal venous hypertension Prominence of the mural fat of the colon suggests chronic inflammation. No evidence of acute inflammatory change or acute abnormality noted on current study D/ / Werner Copeland MD / Werner Copeland MD Interpreting Provider: Werner Copeland MD
[2018-04-11] MEDS ORDERED: 0.9 % Sodium Chloride 1,000 ML IVC ONE (18:50)
[2018-04-11] MEDS ORDERED: Ondansetron 4 MG/2 ML VIAL IVP ONE (18:50)
[2018-04-11] MEDS ORDERED: 0.9 % Sodium Chloride 1,000 ML IVC SCH (19:00)
[2018-04-11 19:02] LABS: Bilirubin,Urine Negative (Negative); Blood,Urine Moderate (Negative); Clarity,Urine Clear (Clear); Color,Urine Yellow (Yellow); Glucose,Urine (UA) >=1000 mg/dL (Normal); Ketones,Urine 40 mg/dL (Negative); Leukocyte Esterase,Urine Negative (Negative); Nitrite,Urine Negative (Negative); Protein,Urine >=300 mg/dL (Neg-Trace); Urobilinogen,Urine Normal (Normal)
[2018-04-11 19:13] LABS: Basophils % 0.1 %; Hematocrit 41.8 % (35.3-44.9); Hemoglobin 14.4 g/dL (11.5-15.4); Immature Granulocytes % 0.4 % (0-4); Lymphocytes # 1.1 K/mcL (0.6-4.6); Lymphocytes % 9.9 %; Mean Corpuscular HGB Conc 34.4 g/dL (31.6-35.5); Mean Corpuscular Hemoglobin 30.1 pg (28.0-33.3); Mean Corpuscular Volume 87.4 fL (83.0-100.0); Mean Platelet Volume 10.6 fL (9.4-12.4); Monocytes # 0.7 K/mcL (0.0-1.3); Monocytes % 5.8 %; Neutrophils # 9.5 K/mcL (1.6-8.9); Platelet Count 123 K/mcL (140-400); Red Blood Count 4.78 M/mcL (3.82-4.97); Red Cell Distribution Width 13.8 % (11.5-14.5); Segmented Neutrophils % 83.8 %
[2018-04-11 19:14] LABS: RBC,Urine 0-3 per hpf (0-3); Squamous Epithelial Cell,Urine Moderate per lpf (None-Few); WBC,Urine 0-3 per hpf (0-3)
[2018-04-11 19:15] LABS: Bacteria,Urine Few per hpf (None-Few); Yeast,Urine Few per hpf (None Seen)
[2018-04-11 19:31] LABS: Alanine Aminotransferase 28 Units/L (7-52); Albumin 3.9 g/dL (3.5-5.7); Albumin/Globulin Ratio 1.1 (1.1-2.2); Alkaline Phosphatase 86 Units/L (34-104); Amylase 24 Units/L (29-103); Aspartate Amino Transferase 24 Units/L (13-39); BUN/Creatinine Ratio 27 (6-26); Bilirubin,Direct 0.6 mg/dL (0.0-0.2); Bilirubin,Indirect 1.7 mg/dL (0.0-1.2); Bilirubin,Total 2.3 mg/dL (0.3-1.0); Blood Urea Nitrogen 22 mg/dL (8-23); Calcium 8.8 mg/dL (8.6-10.3); Carbon Dioxide 21 mEq/L (23-29); Chloride 89 mEq/L (98-107); Globulin 3.5 g/dL (2.4-3.5); Glucose 424 mg/dL (70-105); Lipase 4 Units/L (11-82); Osmolality,Calculated 283 (280-300); Potassium 3.9 mEq/L (3.5-5.1); Sodium 126 mEq/L (136-145); Total Protein 7.4 g/dL (6.4-8.9); eGFR For Non-African Americans > 60 (> 60)
[2018-04-11] MEDS ORDERED: Naloxone 0.4 MG/ML INJ IVP PRN (22:47)
[2018-04-11] MEDS ORDERED: Dextrose Gel 15 GM/37.5 ML TUBE PO PRN ×2 (22:47)
[2018-04-11] MEDS ORDERED: Ondansetron 4 MG/2 ML VIAL IVP PRN (22:47)
[2018-04-11] MEDS ORDERED: Nitroglycerin 0.4 MG TAB.SUBL SL SCH (22:47)
[2018-04-11] MEDS ORDERED: *HR* Dextrose 50 % in Water (Syg) 50 ML SYRINGE IVP PRN (22:47)
[2018-04-11] MEDS ORDERED: D5% in Water 1,000 ML IVC PRN (22:47)
[2018-04-11] MEDS ORDERED: Nitroglycerin 0.4 MG TAB.SUBL SL PRN (22:59)
[2018-04-11] MEDS ORDERED: *HR* Metoprolol 5 MG/5 ML VIAL IVP ONE (23:09)
[2018-04-11] MEDS: *HR* Promethazine 25 MG/ML VIAL IVP PRN (23:27)
[2018-04-11] MEDS: Acetaminophen 325 MG TABLET PO SCH (23:28)
[2018-04-12 05:22] LABS: Basophils % 0.1 %; Hemoglobin 14.7 g/dL (11.5-15.4); Immature Granulocytes % 0.5 % (0-4); Lymphocytes # 1.4 K/mcL (0.6-4.6); Lymphocytes % 10.1 %; Mean Corpuscular Hemoglobin 30.9 pg (28.0-33.3); Mean Corpuscular Volume 88.2 fL (83.0-100.0); Mean Platelet Volume 11.1 fL (9.4-12.4); Monocytes # 1.2 K/mcL (0.0-1.3); Monocytes % 9.1 %; Neutrophils # 10.8 K/mcL (1.6-8.9); Platelet Count 121 K/mcL (140-400); Red Blood Count 4.76 M/mcL (3.82-4.97); Red Cell Distribution Width 13.6 % (11.5-14.5); Segmented Neutrophils % 80.2 %
[2018-04-12 05:46] LABS: Alanine Aminotransferase 24 Units/L (7-52); Albumin 3.6 g/dL (3.5-5.7); Albumin/Globulin Ratio 1.1 (1.1-2.2); Alkaline Phosphatase 78 Units/L (34-104); Aspartate Amino Transferase 25 Units/L (13-39); BUN/Creatinine Ratio 32 (6-26); Blood Urea Nitrogen 21 mg/dL (8-23); Calcium 8.2 mg/dL (8.6-10.3); Carbon Dioxide 24 mEq/L (23-29); Chloride 95 mEq/L (98-107); Globulin 3.2 g/dL (2.4-3.5); Glucose 320 mg/dL (70-105); Osmolality,Calculated 287 (280-300); Potassium 3.5 mEq/L (3.5-5.1); Sodium 131 mEq/L (136-145); Total Protein 6.8 g/dL (6.4-8.9); eGFR For Non-African Americans > 60 (> 60)
[2018-04-12] MEDS: OSTERA PO SCH (07:50)
[2018-04-12] MEDS: Ondansetron 4 MG/2 ML VIAL IVP PRN ×2 (08:06→18:02)
[2018-04-12] MEDS: Insulin LISPRO 300 UNITS/3 ML VIAL SQ SCH ×3 (08:08→18:01)
[2018-04-12] MEDS: Acetaminophen 325 MG TABLET PO SCH ×3 (08:11→18:02)
[2018-04-12] MEDS: *HR* Metformin 500 MG TABLET PO SCH ×2 (08:11→18:01)
[2018-04-12] MEDS: Gabapentin 300 MG CAPSULE PO SCH ×3 (08:11→21:07)
[2018-04-12] MEDS: Aspirin 81 MG TAB.CHEW PO SCH (08:11)
[2018-04-12] MEDS: Magnesium Oxide 400 MG TABLET PO SCH (08:11)
[2018-04-12] MEDS: Isosorbide MONOnitrate (24 HR) 30 MG TAB.ER.24H PO SCH ×2 (08:11→21:07)
[2018-04-12] MEDS: 0.9 % Sodium Chloride 1,000 ML IVC SCH ×2 (08:12→08:15)
--- NOTE | 2018-04-12 12:33 | Internal Med History&Physical ---
Date of Encounter: 04/12/18 Time of Encounter: 12:05 Assessment and Plan (1) Acute gastroenteritis Current visit: Yes Status: Acute Likely viral etiology. She will be given IV fluids. Antiemetics will be given as needed. Further workup will be done as indicated. 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 Monitor LFTs. Check lipid profile in a.m. Qualifiers: Hepatic cirrhosis type: unspecified hepatic cirrhosis Ascites presence: without ascites Qualified Code(s): K74.60 - Unspecified cirrhosis of liver (3) DM2 (diabetes mellitus, type 2) Current visit: No Status: Chronic Continue Glucophage. Do Accu-Cheks with SSI. 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 (5) Hypertension Current visit: No Status: Chronic Continue Lopressor and lisinopril. Qualifiers: Hypertension type: essential hypertension Qualified Code(s): I10 - Essential (primary) hypertension (6) Hyponatremia Current visit: Yes Status: Acute Possibly secondary to vomiting and diarrhea. Continue IV fluids and monitor labs. Internal Medicine - H&P: HPI Chief complaint: Vomiting, abdominal discomfort Admitted From: Emergency Dept Plans for Post Hospital Care: Home History of present illness: Ms. Jenkins is a 62 year old female who came to emergency room stating she had onset of abdominal discomfort with multiple episodes of vomiting and diarrhea the evening of April 10. She was evaluated in ER and found to have leukocytosis with left shift. Abdominal/pelvic CT scan showed evidence of cirrhosis and portal venous hypertension but no acute abnormality otherwise. She was admitted to [facility] floor for ongoing care needs. 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 She has had cholecystectomy. She denies disorders of her liver or exocrine pancreas. She denies household contacts with similar symptoms. Past Med Surg Social Fam HX - Past Medical History Medical history: asthma, cirrhosis, CVA, diabetes, GERD, hyperlipidemia, hypertension, liver disease, TIA, other Additional medical history: Metabolic syndrome Psychiatric history: anxiety, depression - Past Surgical History Surgical History: cataract, cholecystectomy Additional surgical history: cardiac cath- no stents - Social History Smoking Status: Never smoker Smokeless Tobacco Status: No Alcohol use: none Drug use: none - Family History Mother Living Status: Hx Family Cardiac Disorders: Yes (CAD) Hx Family Cancer: No (No colon or female cancer in family) Hx Family Endocrine Disorder: Yes (DM) Internal Medicine - H&P: Meds Aspirin 81 mg PO DAILY 05/25/15 [History] Gabapentin [Neurontin] 300 mg PO TID 05/25/15 [History] Isosorbide DInitrate [Isosorbide Dinitrate] 30 mg PO BID 05/25/15 [History] Metformin [Glucophage] 1,000 mg PO BIDWM 05/25/15 [History] Metoprolol [Lopressor] 25 mg PO BID 05/25/15 [History] Nitroglycerin 0.4 mg SL Q5MIN 05/25/15 [History] Sertraline HCl [Zoloft] 50 mg PO HS 05/25/15 [History] Simvastatin [Zocor] 20 mg PO HS 05/25/15 [History] Lisinopril [Zestril] 10 mg PO DAILY 08/30/15 [History] Vit D3-Vit K/Berberine/Hops [Ostera Tablet] 1 each PO DAILY 03/06/18 [History] Insulin Glargine,Hum.rec.anlog [Lantus Solostar] 60 unit SQ DAILY #0 03/09/18 [ Rx] Magnesium Oxide [Mag-Ox] 400 mg PO DAILY 30 Days tablet 03/09/18 [Rx] 3 Allergy/AdvReac Type Severity Reaction Status Date / Time Horse/Equine Containing Allergy Sneezing Verified 04/11/18 18:18 Products latex Allergy Rash Verified 04/11/18 18:18 All Systems PM: A 10-system review of systems was performed and is negative for pertinent findings except as documented above in the HPI. Review of systems: Review of systems from her February 2018 [facility] hospitalization were reviewed and revised as below. Gen.: Her weight is increased from 68.13 kg in 03/09/2018 to 71.668 kg on admission now. Cardiovascular: She has history of hypertension but denies [place] heart failure angina DVT or pulmonary embolus. Echocardiogram done 06/15/2016 showed LVEF of 60-65% with mild diastolic dysfunction reported. There was mild aortic regurgitation and mild mitral regurgitation. The estimate RVSP was 25 mmHg. The interventricular septum thickness was increased at 1.37 cm. Posterior wall thickness was normal at 1.08 cm. Regadenoson stress test 06/15/2016 showed EKG and perfusion imaging negative for ischemia. Respiratory: She is a lifelong nonsmoker. She thinks she was told she had COPD in the past but does not use home oxygen. She denies other lung disease. GI: as per history of present illness : She denies hematuria dysuria or kidney stones. She reports frequent urination. 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 She denies seizures. Endocrine: She was diagnosed with DM 2 approximately 2008. She has hyperlipidemia but denies thyroid disease Hematology/oncology: She denies blood disorders cancers or anemia Psychiatric: She has anxiety and depression but denies other mental health issues. [place] skeletal: She has DJD. She had left he humerus fracture October 2017 from a fall and thinks she possibly had right foot fracture in the past. She denies other bone joint or muscle disorders. - Constitutional Vitals: Temp Pulse Resp BP Pulse Ox 100.3 F H 87 15 126/72 96 04/12/18 10:00 04/12/18 10:00 04/12/18 10:00 04/12/18 10:00 04/12/18 10:00 Exam: Gen.: She is a well-developed well-nourished female resting in bed who appears in minimal distress at present time. HEENT: Head is atraumatic and normocephalic. She has significant alopecia. Eyes: EOMI. There is no scleral icterus. Mouth: Mucosa is moist. Neck: Supple and nontender. There is no thyromegaly or adenopathy noted. Heart: Regular without murmurs gallops or ectopics Lungs: No wheezes or crackles are heard. Abdomen: Soft and nontender. No masses or guarding are noted. Extremities: There is no cyanosis edema or clubbing noted. Dorsalis pedis and posterior tibial pulses are trace palpable bilaterally. Neurologic: Mental status: She is talkative and appropriate in conversation. Cranial nerves: Smile is symmetric. Forehead wrinkles bilaterally. Tongue protrudes midline. EOMI. Motor: There is no pronator drift. Cerebellar: Finger to nose is intact bilaterally. Skin: Warm and dry Internal Med - H&P Results - Labs CBC & Chem 7: 04/12/18 04:40 04/12/18 04:40 Labs: Short CBC 04/12/18 Range/Units 04:40 WBC 13.5 H (4.3-11.1) K/mcL Hgb 14.7 (11.5-15.4) g/dL Hct 42.0 (35.3-44.9) % Plt Count 121 L (140-400) K/mcL Neutrophils # 10.8 H (1.6-8.9) K/mcL BMP 04/12/18 04:40 Sodium 131 L Potassium 3.5 Chloride 95 L Carbon Dioxide 24 BUN 21 Creatinine 0.65 Glucose 320 H Calcium 8.2 L Liver Function 04/12/18 Range/Units 04:40 Total Bilirubin 2.0 H (0.3-1.0) mg/dL AST 25 (13-39) Units/L ALT 24 (7-52) Units/L Alkaline Phosphatase 78 (34-104) Units/L Albumin 3.6 (3.5-5.7) g/dL
[2018-04-12] MEDS: 0.9 % Sodium Chloride w KCl 20 MEQ/1,000 ML MLS IVC SCH (15:33)
[2018-04-12] MEDS: *HR* Promethazine 25 MG/ML VIAL IVP PRN (21:06)
[2018-04-13] MEDS: Acetaminophen 325 MG TABLET PO SCH ×4 (01:55→17:07)
[2018-04-13] MEDS: 0.9 % Sodium Chloride w KCl 20 MEQ/1,000 ML MLS IVC SCH ×2 (01:55→12:04)
[2018-04-13] MEDS: Ondansetron 4 MG/2 ML VIAL IVP PRN (05:40)
[2018-04-13 06:11] LABS: Basophils % 0.1 %; Eosinophils % 0.1 %; Hematocrit 37.7 % (35.3-44.9); Immature Granulocytes % 0.6 % (0-4); Lymphocytes # 1.7 K/mcL (0.6-4.6); Lymphocytes % 15.7 %; Mean Corpuscular HGB Conc 34.5 g/dL (31.6-35.5); Mean Corpuscular Hemoglobin 30.8 pg (28.0-33.3); Mean Corpuscular Volume 89.3 fL (83.0-100.0); Mean Platelet Volume 10.9 fL (9.4-12.4); Monocytes % 9.6 %; Neutrophils # 7.8 K/mcL (1.6-8.9); Red Blood Count 4.22 M/mcL (3.82-4.97); Red Cell Distribution Width 13.7 % (11.5-14.5); Segmented Neutrophils % 73.9 %
[2018-04-13 06:25] LABS: BUN/Creatinine Ratio 41 (6-26); Blood Urea Nitrogen 25 mg/dL (8-23); Calcium 7.8 mg/dL (8.6-10.3); Carbon Dioxide 22 mEq/L (23-29); Chloride 102 mEq/L (98-107); Chol/HDL Ratio 4.4 (0-4.9); Cholesterol 124 mg/dL (< 200); Glucose 260 mg/dL (70-105); HDL Cholesterol 28 mg/dL (40-59); LDL Cholesterol,Calculated 73 mg/dL (0-99); Magnesium 1.7 mg/dL (1.6-2.6); Osmolality,Calculated 285 (280-300); Sodium 131 mEq/L (136-145); Triglycerides 113 mg/dL (< 150); eGFR For Non-African Americans > 60 (> 60)
[2018-04-13 07:19] LABS: Albumin 3.2 g/dL (3.5-5.7); Albumin/Globulin Ratio 1.2 (1.1-2.2); Bilirubin,Direct 0.3 mg/dL (0.0-0.2); Bilirubin,Indirect 0.8 mg/dL (0.0-1.2); Bilirubin,Total 1.1 mg/dL (0.3-1.0); Globulin 2.6 g/dL (2.4-3.5); Total Protein 5.8 g/dL (6.4-8.9)
[2018-04-13 07:22] LABS: Platelet Count 95 K/mcL (140-400)
[2018-04-13] MEDS: Aspirin 81 MG TAB.CHEW PO SCH (08:09)
[2018-04-13] MEDS: Magnesium Oxide 400 MG TABLET PO SCH (08:09)
[2018-04-13] MEDS: Gabapentin 300 MG CAPSULE PO SCH ×3 (08:09→21:33)
[2018-04-13] MEDS: *HR* Metformin 500 MG TABLET PO SCH ×2 (08:09→17:07)
[2018-04-13] MEDS: OSTERA PO SCH (08:10)
[2018-04-13] MEDS: Isosorbide MONOnitrate (24 HR) 30 MG TAB.ER.24H PO SCH ×2 (08:10→21:33)
[2018-04-13] MEDS: *HR* Promethazine 25 MG/ML VIAL IVP PRN (08:15)
[2018-04-13] MEDS: Insulin LISPRO 300 UNITS/3 ML VIAL SQ SCH ×3 (08:16→17:08)
--- NOTE | 2018-04-13 17:55 | Internal Med Progress Note ---
Date of Encounter: 04/13/18 Time of Encounter: 17:40 - Assessment and plan (1) Acute gastroenteritis Current Visit: Yes Status: Acute Assessment and plan: April 13. WBC and left shift have normalized. Continue present treatment. Anticipate discharge in 1-2 days. (2) Cirrhosis Current Visit: No Status: Chronic Assessment and plan: April 13. Stable Qualifiers: Hepatic cirrhosis type: unspecified hepatic cirrhosis Ascites presence: without ascites Qualified Code(s): K74.60 - Unspecified cirrhosis of liver (3) DM2 (diabetes mellitus, type 2) Current Visit: No Status: Chronic Assessment and plan: April 13. Continue Glucophage and Accu-Cheks with SSI. Qualifiers: Diabetes mellitus terminal block assembler insulin use: with terminal block assembler use Diabetes mellitus complication status: without complication Qualified Code(s): E11.9 - Type 2 diabetes mellitus without complications; Z79.4 - MCFP (current) use of insulin (4) Weakness generalized Current Visit: Yes Status: Acute Assessment and plan: April 13. Continue PT and OT intervention. (5) Hypertension Current Visit: No Status: Chronic Assessment and plan: April 13. Continue Lopressor and lisinopril. Qualifiers: Hypertension type: essential hypertension Qualified Code(s): I10 - Essential (primary) hypertension (6) Hyponatremia Current Visit: Yes Status: Acute Assessment and plan: April 13. Sodium stable at 131. - Subjective Interval history: April 13. She has no new complaints. She reports she had vomiting and diarrhea within the last 3 hours. She feels slightly better overall than yesterday. - Constitutional Vitals: Temp Pulse Resp BP Pulse Ox 98.9 F 79 16 154/82 95 04/13/18 06:32 04/13/18 15:12 04/13/18 15:12 04/13/18 15:12 04/13/18 15:12 Exam: She is sitting in a chair at bedside resting comfortably. Her affect is bright and cheerful. I reviewed her medications and lab results. Internal Medicine: Result - Labs CBC & Chem 7: 04/13/18 05:50 04/13/18 05:50 Labs: Short CBC 04/13/18 Range/Units 05:50 WBC 10.5 (4.3-11.1) K/mcL Hgb 13.0 D (11.5-15.4) g/dL Hct 37.7 (35.3-44.9) % Plt Count 95 L (140-400) K/mcL Neutrophils # 7.8 (1.6-8.9) K/mcL BMP 04/13/18 05:50 Sodium 131 L Potassium 4.0 Chloride 102 Carbon Dioxide 22 L BUN 25 H Creatinine 0.61 Glucose 260 H Calcium 7.8 L Liver Function 04/13/18 Range/Units Unknown Total Bilirubin 1.1 H (0.3-1.0) mg/dL Direct Bilirubin 0.3 H (0.0-0.2) mg/dL AST 20 (13-39) Units/L ALT 20 (7-52) Units/L Alkaline Phosphatase 67 (34-104) Units/L Albumin 3.2 L (3.5-5.7) g/dL Consult Discharge Plan - Plan Referrals: Rebecca Champion, ZURDO [Primary Care Provider] - 1 week
[2018-04-13] MEDS ORDERED: 0.9 % Sodium Chloride w KCl 20 MEQ/1,000 ML MLS IVC SCH (18:00)
[2018-04-14] MEDS: Acetaminophen 325 MG TABLET PO SCH ×3 (06:17→09:35)
[2018-04-14 06:54] LABS: BUN/Creatinine Ratio 34 (6-26); Blood Urea Nitrogen 17 mg/dL (8-23); Carbon Dioxide 22 mEq/L (23-29); Chloride 103 mEq/L (98-107); Glucose 241 mg/dL (70-105); Osmolality,Calculated 283 (280-300); Potassium 4.1 mEq/L (3.5-5.1); Sodium 132 mEq/L (136-145); eGFR For Non-African Americans > 60 (> 60)
[2018-04-14] MEDS: Insulin LISPRO 300 UNITS/3 ML VIAL SQ SCH (09:35)
[2018-04-14] MEDS: *HR* Metformin 500 MG TABLET PO SCH (09:36)
[2018-04-14] MEDS: Gabapentin 300 MG CAPSULE PO SCH (09:36)
[2018-04-14] MEDS: Isosorbide MONOnitrate (24 HR) 30 MG TAB.ER.24H PO SCH (09:36)
[2018-04-14] MEDS: Magnesium Oxide 400 MG TABLET PO SCH (09:37)
[2018-04-14] MEDS: Aspirin 81 MG TAB.CHEW PO SCH (09:37)
[2018-04-14] MEDS: OSTERA PO SCH (09:38)
--- NOTE | 2018-04-14 12:04 | Discharge Summary ---
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 Jenkins is a 62 year old female who came to emergency room stating she had onset of abdominal discomfort with multiple episodes of vomiting and diarrhea the evening of April 10. She was evaluated in ER and found to have leukocytosis with left shift. Abdominal/pelvic CT scan showed evidence of cirrhosis and portal venous hypertension but no acute abnormality otherwise. She was admitted to [facility] for ongoing care needs. Initial orders were written by the emergency room physician. I saw her on April 12 and performed the history and physical. I felt she likely had viral gastroenteritis. Her vomiting lessened during the course of hospitalization. She was given IV fluids. Antiemetics were used as needed. She was able to tolerate adequate intake of food fluids and medications by day of discharge to [facility]. Glucophage was continued. Accu-Cheks with SSI showed elevated blood sugars. She will be started on Amaryl. Lantus dose will be reduced at discharge with blood sugars monitored at [facility]. PT and OT evaluations were ordered with ongoing intervention. Blood pressure remained above desirable range. She will be changed to Toprol- XL 100 mg daily. Lisinopril be continued. Sodium improved to 132 by day of discharge. This will be monitored at [facility]. On April 14 she was stable for discharge to [facility] for ongoing care needs. She will follow with me there. - Time Spent with Patient Total time spent providing and/or coordinating discharge services: - Discharge Medications Prescriptions: Glimepiride [Amaryl] 1 mg PO DAILY 365 Days tablet Isosorbide MONOnitrate (24 HR) [Imdur] 60 mg PO DAILY 365 Days tab.er.24h Metoprolol Succinate [Toprol Xl] 100 mg PO DAILY 365 Days tab.er.24h Home Medications: Aspirin 81 mg PO DAILY 05/25/15 [History] Gabapentin [Neurontin] 300 mg PO TID 05/25/15 [History] Metformin [Glucophage] 1,000 mg PO BIDWM 05/25/15 [History] Nitroglycerin 0.4 mg SL Q5MIN 05/25/15 [History] Sertraline HCl [Zoloft] 50 mg PO HS 05/25/15 [History] Simvastatin [Zocor] 20 mg PO HS 05/25/15 [History] Lisinopril [Zestril] 10 mg PO DAILY 08/30/15 [History] Vit D3-Vit K/Berberine/Hops [Ostera Tablet] 1 each PO DAILY 03/06/18 [History] Magnesium Oxide [Mag-Ox] 400 mg PO DAILY 30 Days tablet 03/09/18 [Rx] Glimepiride [Amaryl] 1 mg PO DAILY 365 Days tablet 04/14/18 [Rx] Insulin Glargine,Hum.rec.anlog [Lantus Solostar] 15 unit SQ DAILY #0 04/14/18 [ Rx] Isosorbide MONOnitrate (24 HR) [Imdur] 60 mg PO DAILY 365 Days tab.er.24h 04/14 [Rx] Metoprolol Succinate [Toprol Xl] 100 mg PO DAILY 365 Days tab.er.24h 04/14/18 [ Rx] Allergies/Adverse Reactions: 3 Allergy/AdvReac Type Severity Reaction Status Date / Time Horse/Equine Containing Allergy Sneezing Verified 04/11/18 18:18 Products latex Allergy Rash Verified 04/11/18 18:18 Date of admission: 04/11/18 22:00 Primary care physician: Rebecca Champion Consults: 04/12/18 10:08 Consult to Occupational Therapy [CONS] Routine Comment: Evaluate, develop and implement POC Reason for Consult: Weakness Does patient have active BEDREST order?: No Is patient medically & hemodynamically stable?: Yes Patient assessed for mobility or mobilized this visit?: Yes Consult to Physical Therapy [CONS] Routine Comment: Evaluate, develop and implement POC Reason for Consult: Weakness Does patient have active BEDREST order?: No Is patient medically & hemodynamically stable?: Yes Patient assessed for mobility or mobilized this visit?: Yes - Constitutional Vitals: Temp Pulse Resp BP Pulse Ox 99.1 F 81 20 180/87 94 04/14/18 06:38 04/14/18 06:38 04/14/18 06:38 04/14/18 06:38 04/14/18 06:38 - Patient Status Disposition: Transfer SNF Condition: Fair - Discharge Instructions - Diet and Activity Activity: as per physical therapy Diet: diabetic diet
--- NOTE | 2018-04-14 12:11 | Physician Discharge Referral ---
ExtendedCare Referral Info Transfer To: [facility] Provider in Charge: Vipul Provider in Charge after Transfer: PCP (Vipul) - Diagnosis (1) Acute gastroenteritis Priority: Primary Status: Acute (2) Cirrhosis Priority: Secondary Status: Chronic (3) DM2 (diabetes mellitus, type 2) Priority: Secondary Status: Chronic (4) Weakness generalized Priority: Secondary Status: Acute (5) Hypertension Priority: Secondary Status: Chronic (6) Hyponatremia Priority: Secondary Status: Acute Prognosis: Good Aware of Diagnosis: Patient Aware of Prognosis: Patient - Transfer Medications Prescriptions: Glimepiride [Amaryl] 1 mg PO DAILY 365 Days tablet Isosorbide MONOnitrate (24 HR) [Imdur] 60 mg PO DAILY 365 Days tab.er.24h Metoprolol Succinate [Toprol Xl] 100 mg PO DAILY 365 Days tab.er.24h Home Medications: Aspirin 81 mg PO DAILY 05/25/15 [History] Gabapentin [Neurontin] 300 mg PO TID 05/25/15 [History] Metformin [Glucophage] 1,000 mg PO BIDWM 05/25/15 [History] Nitroglycerin 0.4 mg SL Q5MIN 05/25/15 [History] Sertraline HCl [Zoloft] 50 mg PO HS 05/25/15 [History] Simvastatin [Zocor] 20 mg PO HS 05/25/15 [History] Lisinopril [Zestril] 10 mg PO DAILY 08/30/15 [History] Vit D3-Vit K/[place]/Hops [Ostera Tablet] 1 each PO DAILY 03/06/18 [History] Magnesium Oxide [Mag-Ox] 400 mg PO DAILY 30 Days tablet 03/09/18 [Rx] Glimepiride [Amaryl] 1 mg PO DAILY 365 Days tablet 04/14/18 [Rx] Insulin Glargine,Hum.rec.anlog [Lantus Solostar] 15 unit SQ DAILY #0 04/14/18 [ Rx] Isosorbide MONOnitrate (24 HR) [Imdur] 60 mg PO DAILY 365 Days tab.er.24h 04/14 [Rx] Metoprolol Succinate [Toprol Xl] 100 mg PO DAILY 365 Days tab.er.24h 04/14/18 [ Rx] Allergies/Adverse Reactions: 3 Allergy/AdvReac Type Severity Reaction Status Date / Time Horse/Equine Containing Allergy Sneezing Verified 04/11/18 18:18 Products latex Allergy Rash Verified 04/11/18 18:18 - Respiratory Orders Smoking Cessation: Smoking cessation has been advised. For more information, call the [place] Tobacco Quit Line at 3-169-NMUQ-NOW. - Lab Orders Lab Orders: Other (include drug levels w/frequency) (CBC, CMP in 5 days. Accu- Cheks before meals and at bedtime with SSI.) - Mobility Orders Ambulate - Rehabiliation Orders Rehab Potential: Good Rehab Orders: Evaluation for Physical Therapy, Evaluation for Occupational Therapy - Diet Orders No Concentrated Sweets CERTIFICATION: I certify that the transfer of the above named patient to an Extended Care Facility is necessary for the continuing treatment of the diagnosis listed. The above information is true and accurate reflection of patient's current condition. Confidential - Redisclosure prohibited without a patient's written consent.
[2018-04-14 15:25] VITALS: BP 168/76
== END 2018-04-14 17:16 ==
LOC: EMEROOPIK 18:17 → INPPIK 18:17
PROVIDERS: ADMIT Internal Medicine; ATTEND Internal Medicine

== ENCOUNTER 2018-07-09 19:25 | Observation (INO) ==
--- NOTE | 2018-07-09 19:55 | Emergency Department Note ---
Disposition Clinical Impression: Elevated lactic acid level UTI (urinary tract infection) Qualifiers: Urinary tract infection type: site unspecified Hematuria presence: without hematuria Qualified Code(s): N39.0 - Urinary tract infection, site not specified Nausea and vomiting Qualifiers: Vomiting type: unspecified Vomiting Intractability: non-intractable Qualified Code(s): R11.2 - Nausea with vomiting, unspecified Disposition: Admitted As Inpatient Condition: Good Abdominal Pain HPI - General Chief Complaint: ED Abdominal Pain Stated Complaint: Nausea and Vomiting x2 Source: patient Mode of arrival: private vehicle Limitations: no limitations Nursing Notes Reviewed: Yes Vital Signs Reviewed: Yes - History of Present Illness HPI Narrative: Patient presents to the ED complaining of abdominal pain, nausea and vomiting. Symptoms began 2 days ago. Her abdominal pain is in the mid to lower abdomen around the umbilical area. She describes it as a dull intermittent pain that she rates a 5 out of 10 currently. Pain has been fluctuating in intensity. She reports 15 or more episodes of bilious but nonbloody emesis today. She also reports subjective fever and chills. She denies any diarrhea recurrent urinary symptoms. No URI symptoms. History is notable for GERD and liver cirrhosis that she states is due to a fatty liver. She has had a prior cholecystectomy. No other abdominal surgeries. She does see Dr. Tiwari and is on lactulose. Denies any recent travel or sick contacts. No tobacco, alcohol or drug use. Pain Scale: 0 - Related Data Home Medications Medication Instructions Recorded Confirmed Aspirin 81 mg PO DAILY 05/25/15 07/09/18 Gabapentin [Neurontin] 300 mg PO TID 05/25/15 07/09/18 Metformin [Glucophage] 1,000 mg PO BIDWM 05/25/15 07/09/18 Nitroglycerin 0.4 mg SL Q5MIN 05/25/15 07/09/18 Sertraline HCl [Zoloft] 50 mg PO HS 05/25/15 07/09/18 Simvastatin [Zocor] 20 mg PO HS 05/25/15 07/09/18 Lisinopril [Zestril] 10 mg PO DAILY 08/30/15 07/09/18 Previous Rx's Medication Instructions Recorded Magnesium Oxide [Mag-Ox] 400 mg PO DAILY 30 Days tablet 03/09/18 Glimepiride [Amaryl] 1 mg PO DAILY 365 Days tablet 04/14/18 Insulin Glargine,Hum.rec.anlog 15 unit SQ DAILY #0 04/14/18 [Lantus Solostar] Isosorbide MONOnitrate (24 HR) 60 mg PO DAILY 365 Days tab.er.24h 04/14/18 [Imdur] Metoprolol Succinate [Toprol Xl] 100 mg PO DAILY 365 Days 04/14/18 tab.er.24h Allergies Allergy/AdvReac Type Severity Reaction Status Date / Time Horse/Equine Containing Allergy Sneezing Verified 06/30/18 19:03 Products latex Allergy Rash Verified 06/30/18 19:03 Constitutional: Reports: fever (subjective), chills. Denies: weakness, weight change Eyes: Denies: eye pain, eye discharge, vision change ENT ED: Denies: ear pain, throat pain, dental pain, hearing loss, epistaxis, congestion, dysphagia Cardiovascular: Denies: chest pain, palpitations, dyspnea on exertion, edema, syncope Respiratory: Denies: cough, dyspnea, wheezes, hemoptysis, stridor Gastrointestinal: Reports: as per HPI, abdominal pain, nausea, vomiting. Denies: diarrhea, constipation, hematemesis, melena, hematochezia Genitourinary: Denies: dysuria, frequency, hematuria, discharge Musculoskeletal: Denies: back pain, neck pain, arthralgia, myalgia Integumentary: Denies: rash, abrasion, lesions Neurological: Denies: headache, weakness, numbness, paresthesias, confusion, abnormal gait, vertigo Psychiatric: Denies: anxiety, depression, suicidal thoughts, homicidal thoughts, auditory hallucinations, visual hallucinations Endocrine: Denies: fatigue Hematological/Lymphatic: Denies: easy bleeding, easy bruising Allergic/Immunologic: Denies: facial swelling, urticaria Abdominal Pain PMH - Past Medical History Medical history: Reports: asthma, cirrhosis, CVA, diabetes, GERD, hyperlipidemia, hypertension, liver disease, TIA, other Female Surgical History: Reports: cholecystectomy, 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 ENGINE PRODUCTION history: Reports: no REPAIRER ENGINE PRODUCTION history Psychiatric history: Reports: anxiety, depression - Social History Smoking status: 2nd Hand Smoke Exposure Alcohol use: Reports: none Drug use: Reports: none Physical Exam - General Limitations: no limitations General appearance: alert, in no apparent distress - Head Head exam: atraumatic, normocephalic, normal inspection - Eye Eye exam: Present: normal appearance, PERRL, EOMI - ENT ENT exam: normal exam, normal oropharynx, mucous membranes dry - Neck Neck exam: Present: normal inspection, full ROM, trachea midline - Chest Chest inspection: Present: normal inspection, symmetric chest wall rise - Respiratory Respiratory exam: Present: normal lung sounds bilaterally - Cardiovascular Cardiovascular exam: Present: regular rate, normal rhythm, normal heart sounds - Abdominal Exam Abdominal exam: Present: soft, tenderness, normal bowel sounds. Absent: distention, guarding, rebound Abdominal tenderness: Present: suprapubic (and periumbilical), mild - Extremities Exam Extremities exam: Present: normal inspection, full ROM. Absent: tenderness, pedal edema - Back Exam Back exam: Present: normal inspection, full ROM, CVA tenderness (R), CVA tenderness (L). Absent: tenderness - Neurological Exam Neurological exam: Present: alert, oriented X3 - Psychiatric Psychiatric exam: Present: normal affect, normal mood - Skin Skin exam: Present: warm, dry, intact, normal color Course Course Narrative: Patient presents to the ED with nausea, vomiting and abdominal pain. She arrives hypertensive and slightly tachycardic at 104. She is nontoxic in appearance but does appear clinically dehydrated. We will give IV fluids and medication for nausea while labs are obtained. - Reevaluation(s) Reevaluation #1: Lab work shows elevated bilirubin as well as elevated lactic acid. Patient has Ryan had a cholecystectomy but given her known liver disease will obtain CT scan for further evaluation. Patient has not yet given a urine sample. Reevaluation #2: CT the abdomen did not show any acute pathology. Urinalysis does show a UTI however. She has not had any vomiting while in the ED but is still persistently nauseous. I suspect the elevated lactate is from her vomiting and anticipate it will clear with continued hydration. She will be given a dose of IV antibiotics for her UTI. She will benefit from overnight admission for continued fluids and monitoring. Patient is in agreement. Reevaluation #3: I spoke to the hospitalist on-call, Dr. Matthew, who has accepted the patient. Time: 23:45 Vital Signs Temperature 98.5 F 07/09/18 19:29 Pulse Rate 104 07/09/18 19:29 Respiratory Rate 18 07/09/18 19:29 Blood Pressure 175/117 07/09/18 19:29 O2 Sat by Pulse Oximetry 97 07/09/18 19:29 Temperature 99.0 F 07/10/18 02:09 Pulse Rate 95 07/10/18 02:09 Respiratory Rate 18 07/10/18 02:09 Blood Pressure 190/112 07/10/18 02:09 O2 Sat by Pulse Oximetry 98 07/10/18 02:09 Oxygen Delivery Oxygen Delivery Room Air Abdominal Pain - Differential Diagnosis Differential Diagnosis: Likely: abdominal pain non-specific, diverticulitis, gastroenteritis, small bowel obstruction - Medical Records Medical records reviewed: Yes I reviewed the patient's medical records. - Lab Data Lab results reviewed: Yes I reviewed the patient's lab results. Result diagrams: 07/09/18 20:26 07/09/18 20:26 Lab Results 07/09/18 07/09/18 07/09/18 Range/Units 20:26 20:26 20:26 WBC 8.3 (4.3-11.1) K/mcL RBC 5.39 H (3.82-4.97) M/mcL Hgb 16.3 H (11.5-15.4) g/dL Hct 46.3 H (35.3-44.9) % MCV 85.9 (83.0-100.0) fL MCH 30.2 (28.0-33.3) pg MCHC 35.2 (31.6-35.5) g/dL RDW 12.9 (11.5-14.5) % Plt Count 121 L (140-400) K/mcL MPV 10.9 (9.4-12.4) fL Immature Gran % 0.2 (0-4) % Seg Neutrophils % 73.2 % Lymphocytes % 18.8 % Monocytes % 7.5 % Eosinophils % 0.1 % Basophils % 0.2 % Neutrophils # 6.0 (1.6-8.9) K/mcL Lymphocytes # 1.6 (0.6-4.6) K/mcL Monocytes # 0.6 (0.0-1.3) K/mcL Eosinophils # 0.0 (0.0-0.6) K/mcL Basophils # 0.0 (0.0-0.2) K/mcL Sodium 133 L (136-145) mEq/L Potassium 4.3 (3.5-5.1) mEq/L Chloride 96 L (98-107) mEq/L Carbon Dioxide 22 L (23-29) mEq/L BUN 17 (8-23) mg/dL Creatinine 0.72 (0.60-1.20) mg/dL Est GFR ( Amer) > 60 (> 60) Est GFR (Non-Af Amer) > 60 (> 60) BUN/Creatinine Ratio 24 (6-26) Glucose 372 H (70-105) mg/dL Calculated Osmolality 293 (280-300) Lactic Acid 2.7 H (0.5-2.2) mmol/L Calcium 9.2 (8.6-10.3) mg/dL Total Bilirubin 2.1 H (0.3-1.0) mg/dL Direct Bilirubin 0.4 H (0.0-0.2) mg/dL Indirect Bilirubin 1.7 H (0.0-1.2) mg/dL AST 18 (13-39) Units/L ALT 18 (7-52) Units/L Alkaline Phosphatase 96 (34-104) Units/L Serum Total Protein 7.0 (6.4-8.9) g/dL Albumin 3.8 (3.5-5.7) g/dL Globulin 3.2 (2.4-3.5) g/dL Albumin/Globulin Ratio 1.2 (1.1-2.2) Amylase 17 L (29-103) Units/L Lipase 9 L (11-82) Units/L Urine Color (Yellow) Urine Clarity (Clear) Urine pH (5.0-8.0) pH Units Ur Specific [place] (1.010-1.025) Urine Protein (Neg-Trace) mg/dL Urine Glucose (UA) (Normal) mg/dL Urine Ketones (Negative) mg/dL Urine Blood (Negative) Urine Nitrite (Negative) Urine Bilirubin (Negative) Urine Urobilinogen (Normal) mg/dL Ur Leukocyte Esterase (Negative) Urine Microscopic RBC (0-3) per hpf Urine Microscopic WBC (0-3) per hpf Ur Squamous Epith Cells (None-Few) per lpf Urine Bacteria (None-Few) per hpf Urine Mucus (Few) Urine Yeast (None Seen) per hpf Ur Culture Indicated? (NO) 07/09/18 Range/Units 21:48 WBC (4.3-11.1) K/mcL RBC (3.82-4.97) M/mcL Hgb (11.5-15.4) g/dL Hct (35.3-44.9) % MCV (83.0-100.0) fL MCH (28.0-33.3) pg MCHC (31.6-35.5) g/dL RDW (11.5-14.5) % Plt Count (140-400) K/mcL MPV (9.4-12.4) fL Immature Gran % (0-4) % Seg Neutrophils % % Lymphocytes % % Monocytes % % Eosinophils % % Basophils % % Neutrophils # (1.6-8.9) K/mcL Lymphocytes # (0.6-4.6) K/mcL Monocytes # (0.0-1.3) K/mcL Eosinophils # (0.0-0.6) K/mcL Basophils # (0.0-0.2) K/mcL Sodium (136-145) mEq/L Potassium (3.5-5.1) mEq/L Chloride (98-107) mEq/L Carbon Dioxide (23-29) mEq/L BUN (8-23) mg/dL Creatinine (0.60-1.20) mg/dL Est GFR ( Amer) (> 60) Est GFR (Non-Af Amer) (> 60) BUN/Creatinine Ratio (6-26) Glucose (70-105) mg/dL Calculated Osmolality (280-300) Lactic Acid (0.5-2.2) mmol/L Calcium (8.6-10.3) mg/dL Total Bilirubin (0.3-1.0) mg/dL Direct Bilirubin (0.0-0.2) mg/dL Indirect Bilirubin (0.0-1.2) mg/dL AST (13-39) Units/L ALT (7-52) Units/L Alkaline Phosphatase (34-104) Units/L Serum Total Protein (6.4-8.9) g/dL Albumin (3.5-5.7) g/dL Globulin (2.4-3.5) g/dL Albumin/Globulin Ratio (1.1-2.2) Amylase (29-103) Units/L Lipase (11-82) Units/L Urine Color Yellow (Yellow) Urine Clarity Slightly Hazy (Clear) Urine pH 6.0 (5.0-8.0) pH Units Ur Specific [place] 1.020 (1.010-1.025) Urine Protein 100 H (Neg-Trace) mg/dL Urine Glucose (UA) 500 H (Normal) mg/dL Urine Ketones 40 H (Negative) mg/dL Urine Blood Small H (Negative) Urine Nitrite Positive A (Negative) Urine Bilirubin Negative (Negative) Urine Urobilinogen 4.0 H (Normal) mg/dL Ur Leukocyte Esterase Negative (Negative) Urine Microscopic RBC 0-3 (0-3) per hpf Urine Microscopic WBC 0-3 (0-3) per hpf Ur Squamous Epith Cells Moderate H (None-Few) per lpf Urine Bacteria Moderate H (None-Few) per hpf Urine Mucus Few (Few) Urine Yeast Few H (None Seen) per hpf Ur Culture Indicated? YES A (NO) - Radiology Data Radiology results reviewed: Yes I reviewed the patient's radiology results. ITS Impressions Abdomen/Pelvis CT 07/09/18 21:52 IMPRESSION: No acute abdominopelvic findings. Cirrhotic liver morphology with features portal venous hypertension. No abdominal ascites at this time. Included heart demonstrates heavy multi vessel coronary and aortic valvular calcifications, the latter of which may be seen with aortic stenosis. Recommend correlation with auscultation. D/ / Jasiel Pena / Jasiel Pena Interpreting Provider: Jasiel Pena
[2018-07-09] MEDS ORDERED: Ondansetron 4 MG/2 ML VIAL IVP ONE (20:07)
[2018-07-09] MEDS ORDERED: 0.9 % Sodium Chloride 1,000 ML IVC ONE (20:07)
[2018-07-09] MEDS ORDERED: Ketorolac 30 MG/ML VIAL IVP ONE (20:07)
[2018-07-09 20:33] LABS: Basophils % 0.2 %; Eosinophils % 0.1 %; Hematocrit 46.3 % (35.3-44.9); Hemoglobin 16.3 g/dL (11.5-15.4); Immature Granulocytes % 0.2 % (0-4); Lymphocytes # 1.6 K/mcL (0.6-4.6); Lymphocytes % 18.8 %; Mean Corpuscular HGB Conc 35.2 g/dL (31.6-35.5); Mean Corpuscular Hemoglobin 30.2 pg (28.0-33.3); Mean Corpuscular Volume 85.9 fL (83.0-100.0); Mean Platelet Volume 10.9 fL (9.4-12.4); Monocytes # 0.6 K/mcL (0.0-1.3); Monocytes % 7.5 %; Platelet Count 121 K/mcL (140-400); Red Blood Count 5.39 M/mcL (3.82-4.97); Red Cell Distribution Width 12.9 % (11.5-14.5); Segmented Neutrophils % 73.2 %
[2018-07-09 20:50] LABS: Alanine Aminotransferase 18 Units/L (7-52); Albumin 3.8 g/dL (3.5-5.7); Albumin/Globulin Ratio 1.2 (1.1-2.2); Alkaline Phosphatase 96 Units/L (34-104); Amylase 17 Units/L (29-103); Aspartate Amino Transferase 18 Units/L (13-39); BUN/Creatinine Ratio 24 (6-26); Bilirubin,Direct 0.4 mg/dL (0.0-0.2); Bilirubin,Indirect 1.7 mg/dL (0.0-1.2); Bilirubin,Total 2.1 mg/dL (0.3-1.0); Blood Urea Nitrogen 17 mg/dL (8-23); Calcium 9.2 mg/dL (8.6-10.3); Carbon Dioxide 22 mEq/L (23-29); Chloride 96 mEq/L (98-107); Globulin 3.2 g/dL (2.4-3.5); Glucose 372 mg/dL (70-105); Lipase 9 Units/L (11-82); Osmolality,Calculated 293 (280-300); Potassium 4.3 mEq/L (3.5-5.1); Sodium 133 mEq/L (136-145); eGFR For Non-African Americans > 60 (> 60)
[2018-07-09 21:52] LABS: Bilirubin,Urine Negative (Negative); Blood,Urine Small (Negative); Color,Urine Yellow (Yellow); Glucose,Urine (UA) 500 mg/dL (Normal); Ketones,Urine 40 mg/dL (Negative); Leukocyte Esterase,Urine Negative (Negative); Nitrite,Urine Positive (Negative); Protein,Urine 100 mg/dL (Neg-Trace)
[2018-07-09] MEDS ORDERED: Isovue-370 500 ML INFUS..BTL IV ONE (21:52)
[2018-07-09 21:55] LABS: Clarity,Urine Slightly Hazy (Clear)
[2018-07-09 21:58] LABS: Bacteria,Urine Moderate per hpf (None-Few); Squamous Epithelial Cell,Urine Moderate per lpf (None-Few); Yeast,Urine Few per hpf (None Seen)
[2018-07-09 21:59] LABS: Mucus,Urine Few (Few); RBC,Urine 0-3 per hpf (0-3); WBC,Urine 0-3 per hpf (0-3)
[2018-07-09] MEDS ORDERED: *HR* Promethazine 25 MG/ML VIAL IVP ONE (23:15)
[2018-07-09] MEDS ORDERED: cefTRIAXone 1,000 MG in Water for inj. (sterile) 20 ML 10 ML IVP ONE (23:36)
[2018-07-09] MEDS ORDERED: Naloxone 0.4 MG/ML INJ IVP PRN (23:43)
[2018-07-09] MEDS ORDERED: 0.9 % Sodium Chloride 1,000 ML IVC SCH (23:45)
[2018-07-09] MEDS ORDERED: D5% in Water 1,000 ML IVC PRN (23:48)
[2018-07-09] MEDS ORDERED: Dextrose Gel 15 GM/37.5 ML TUBE PO PRN ×2 (23:48)
[2018-07-09] MEDS ORDERED: *HR* Dextrose 50 % in Water (Syg) 50 ML SYRINGE IVP PRN (23:48)
[2018-07-10] MEDS ORDERED: Isovue-370 500 ML INFUS..BTL IV ONE (00:11)
[2018-07-10] MEDS ORDERED: Dextrose Gel 15 GM/37.5 ML TUBE PO PRN ×2 (00:11)
[2018-07-10] MEDS ORDERED: Naloxone 0.4 MG/ML INJ IVP PRN (00:11)
[2018-07-10] MEDS ORDERED: *HR* Dextrose 50 % in Water (Syg) 50 ML SYRINGE IVP PRN (00:11)
[2018-07-10] MEDS ORDERED: Nitroglycerin 0.4 MG TAB.SUBL SL SCH (00:11)
[2018-07-10] MEDS ORDERED: D5% in Water 1,000 ML IVC PRN (01:02)
[2018-07-10] MEDS: 0.9 % Sodium Chloride 1,000 ML IVC SCH ×2 (01:10→10:15)
[2018-07-10] MEDS ORDERED: Nitroglycerin 0.4 MG TAB.SUBL SL PRN (01:44)
[2018-07-10] MEDS ORDERED: cefTRIAXone 1,000 MG in Water for inj. (sterile) 20 ML 10 ML IVP ONE (02:00)
[2018-07-10] MEDS: Ondansetron 4 MG/2 ML VIAL IVP PRN ×5 (03:31→21:27)
[2018-07-10] MEDS: Metoprolol XL (24 HR) Succ 50 MG TAB.ER.24H PO SCH (03:32)
[2018-07-10] MEDS ORDERED: Ondansetron 4 MG/2 ML VIAL IVP SCH (04:00)
[2018-07-10] MEDS: Insulin LISPRO 300 UNITS/3 ML VIAL SQ SCH ×3 (06:48→21:28)
[2018-07-10] MEDS ORDERED: Metoprolol XL (24 HR) Succ 50 MG TAB.ER.24H PO SCH (09:00)
[2018-07-10] MEDS: Magnesium Oxide 400 MG TABLET PO SCH (10:43)
[2018-07-10] MEDS: *HR* Metformin 500 MG TABLET PO SCH ×2 (10:43→17:04)
[2018-07-10] MEDS: Aspirin 81 MG TAB.CHEW PO SCH (10:43)
[2018-07-10] MEDS: *HR* Glimepiride 2 MG TABLET PO SCH (10:43)
[2018-07-10] MEDS: Insulin DETEMIR 100 UNIT/ML X5UNITS SQ SCH (10:43)
[2018-07-10] MEDS: Gabapentin 300 MG CAPSULE PO SCH ×3 (10:43→21:26)
[2018-07-10] MEDS: Isosorbide MONOnitrate (24 HR) 60 MG TAB.ER.24H PO SCH (10:43)
--- NOTE | 2018-07-10 15:44 | Internal Med History&Physical ---
Date of Encounter: 07/10/18 Time of Encounter: 15:00 Assessment and Plan (1) Nausea and vomiting Current visit: Yes Status: Acute IV fluids and anti-emetics will be given. Qualifiers: Vomiting type: unspecified Vomiting Intractability: non-intractable Qualified Code(s): R11.2 - Nausea with vomiting, unspecified (2) Depression Current visit: Yes Status: Chronic She states she has missed several doses of Zoloft. Will restart this. Qualifiers: Depression Type: unspecified Qualified Code(s): F32.9 - Major depressive disorder, single episode, unspecified (3) Cirrhosis Current visit: No Status: Chronic Monitor LFTs. Qualifiers: Hepatic cirrhosis type: unspecified hepatic cirrhosis Ascites presence: without ascites Qualified Code(s): K74.60 - Unspecified cirrhosis of liver (4) DM2 (diabetes mellitus, type 2) Current visit: No Status: Chronic Hemoglobin A1c was 7.8% on 04/18/2018. Continue Lantus, Amaryl, and Glucophage. Do Accu-Cheks with SSI. Qualifiers: Diabetes mellitus half-way insulin use: with half-way use Diabetes mellitus complication status: without complication Qualified Code(s): E11.9 - Type 2 diabetes mellitus without complications; Z79.4 - longterm (current) use of insulin (5) Hypertension Current visit: No Status: Chronic Continue lisinopril and Toprol. Qualifiers: Hypertension type: essential hypertension Qualified Code(s): I10 - Essential (primary) hypertension (6) Hypomagnesemia Current visit: No Status: Acute Check magnesium level in a.m. (7) Hyperbilirubinemia Current visit: No Status: Acute Recheck labs in a.m. Internal Medicine - H&P: HPI Chief complaint: Vomiting, weakness Admitted From: Emergency Dept Plans for Post Hospital Care: Home History of present illness: Ms. Jenkins is a 62 year old female who came to emergency room stating she had onset of abdominal discomfort with vomiting the evening of July 07. She states she vomited 10-15 times. She is uncertain if there was trace amount of blood in a few episodes of vomiting. She denies diarrhea. She had mid upper abdominal discomfort that she describes as "tightness". Her symptoms continued through July 09. When she did not feel improved she came to emergency room and was evaluated and felt to have UTI. She had mild hyperbilirubinemia and elevated hemoglobin. She was admitted to [facility] floor for ongoing care needs. She states she has not vomited since arriving on [facility] floor. She does not feel back to her baseline. 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 She has had cholecystectomy. She denies other disorders of her liver or exocrine pancreas. Past Med Surg Social Fam HX - Past Medical History Medical history: asthma, cirrhosis, CVA, diabetes, GERD, hyperlipidemia, hypertension, liver disease, TIA, other Additional medical history: Metabolic syndrome Psychiatric history: anxiety, depression - Past Surgical History Surgical History: cholecystectomy Additional surgical history: cardiac cath- no stents - Social History Smoking Status: 2nd Hand Smoke Exposure Smokeless Tobacco Status: No Alcohol use: none Drug use: none - Family History Mother Living Status: Hx Family Cardiac Disorders: Yes (CAD) Hx Family Cancer: No (No colon or female cancer in family) Hx Family Endocrine Disorder: Yes (DM) Internal Medicine - H&P: Meds Aspirin 81 mg PO DAILY 05/25/15 [History] Gabapentin [Neurontin] 300 mg PO TID 05/25/15 [History] Metformin [Glucophage] 1,000 mg PO BIDWM 05/25/15 [History] Nitroglycerin 0.4 mg SL Q5MIN 05/25/15 [History] Sertraline HCl [Zoloft] 50 mg PO HS 05/25/15 [History] Simvastatin [Zocor] 20 mg PO HS 05/25/15 [History] Lisinopril [Zestril] 10 mg PO DAILY 08/30/15 [History] Magnesium Oxide [Mag-Ox] 400 mg PO DAILY 30 Days tablet 03/09/18 [Rx] Glimepiride [Amaryl] 1 mg PO DAILY 365 Days tablet 04/14/18 [Rx] Insulin Glargine,Hum.rec.anlog [Lantus Solostar] 15 unit SQ DAILY #0 04/14/18 [Rx] Isosorbide MONOnitrate (24 HR) [Imdur] 60 mg PO DAILY 365 Days tab.er.24h 04/14/18 [Rx] Metoprolol Succinate [Toprol Xl] 100 mg PO DAILY 365 Days tab.er.24h 04/14/18 [Rx] Allergy/AdvReac Type Severity Reaction Status Date / Time Horse/Equine Containing Allergy Sneezing Verified 06/30/18 19:03 Products latex Allergy Rash Verified 06/30/18 19:03 All Systems PM: A 10-system review of systems was performed and is negative for pertinent findings except as documented above in the HPI. Review of systems: Review of systems from her February 2018 [facility] hospitalization were reviewed and revised as below. Gen.: Her weight has been stable at approximately 68 kg since the February 2018 hospitalization Cardiovascular: She has history of hypertension but denies IL heart failure angina DVT or pulmonary embolus. Echocardiogram done 06/15/2016 showed LVEF of 60-65% with mild diastolic dysfunction reported. There was mild aortic regurgitation and mild mitral regurgitation. The estimate RVSP was 25 mmHg. The interventricular septum thickness was increased at 1.37 cm. Posterior wall thickness was normal at 1.08 cm. Regadenoson stress test 06/15/2016 showed EKG and perfusion imaging negative for ischemia. Respiratory: She is a lifelong nonsmoker. She thinks she was told she had COPD in the past but does not use home oxygen. She denies other lung disease. GI: As per history of present illness : She denies hematuria dysuria or kidney stones. She reports frequent urination. 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 She denies neurologic deficits. She denies seizures. Endocrine: She was diagnosed with DM 2 approximately 2008. She has hyperlipidemia but denies thyroid disease Hematology/oncology: She denies blood disorders cancers or anemia Psychiatric: She has anxiety and depression but denies other mental health i ssues. [place] skeletal: She has DJD but denies gout or other bone joint or muscle disorders. - Constitutional Vitals: Temp Pulse Resp BP Pulse Ox 98.6 F 81 14 186/81 93 07/10/18 11:12 07/10/18 11:12 07/10/18 11:12 07/10/18 11:12 07/10/18 11:12 Exam: Gen.: She is a well-developed well-nourished female resting comfortably in bed who appears in no acute distress at present time HEENT: Head is atraumatic and normocephalic. Eyes: EOMI. There is no scleral icterus. Mouth: Mucosa is moist. Neck: Supple and nontender. There is no thyromegaly or adenopathy noted. Heart: Regular with bigeminal rhythm. No murmurs or gallops are heard. Lungs: No wheezes or crackles are heard. Breath sounds are symmetric. Abdomen: She has minimal discomfort on palpation of the epigastric area. No masses or guarding are noted. Extremities: Dorsalis pedis and posttibial pulses are 2 over 2 bilaterally. There is no cyanosis edema or clubbing noted. Neurologic: Mental status: She is talkative and a good historian. Cranial nerves: Smile is symmetric. Forehead wrinkles bilaterally. Tongue protrudes midline. EOMI. Motor: There is no pronator drift. Cerebellar: Finger to nose is intact bilaterally. Skin: Warm and dry Internal Med - H&P Results - Labs CBC & Chem 7: 07/09/18 20:26 07/09/18 20:26 Labs: Short CBC 07/09/18 Range/Units 20:26 WBC 8.3 (4.3-11.1) K/mcL Hgb 16.3 H (11.5-15.4) g/dL Hct 46.3 H (35.3-44.9) % Plt Count 121 L (140-400) K/mcL Neutrophils # 6.0 (1.6-8.9) K/mcL BMP 07/09/18 20:26 Sodium 133 L Potassium 4.3 Chloride 96 L Carbon Dioxide 22 L BUN 17 Creatinine 0.72 Glucose 372 H Calcium 9.2 Liver Function 07/09/18 Range/Units 20:26 Total Bilirubin 2.1 H (0.3-1.0) mg/dL Direct Bilirubin 0.4 H (0.0-0.2) mg/dL AST 18 (13-39) Units/L ALT 18 (7-52) Units/L Alkaline Phosphatase 96 (34-104) Units/L Albumin 3.8 (3.5-5.7) g/dL Urine 07/09/18 Range/Units 21:48 Urine Color Yellow (Yellow) Urine Clarity Slightly Hazy (Clear) Urine pH 6.0 (5.0-8.0) pH Units Ur Specific [place] 1.020 (1.010-1.025) Urine Protein 100 H (Neg-Trace) mg/dL Urine Glucose (UA) 500 H (Normal) mg/dL - Impressions ITS Impressions Abdomen/Pelvis CT 07/09/18 21:52 IMPRESSION: No acute abdominopelvic findings. Cirrhotic liver morphology with features portal venous hypertension. No abdominal ascites at this time. Included heart demonstrates heavy multi vessel coronary and aortic valvular calcifications, the latter of which may be seen with aortic stenosis. Recommend correlation with auscultation. D/ / Jasiel Pena / Jasiel Pena Interpreting Provider: Jasiel Pena - VTE Reasons for not Prescribing Prophylaxis: Treatment not Indicated - Low risk for VTE
[2018-07-10] MEDS ORDERED: Insulin LISPRO 300 UNITS/3 ML VIAL SQ SCH ×2 (21:00)
[2018-07-11] MEDS: Ondansetron 4 MG/2 ML VIAL IVP PRN ×3 (01:45→20:19)
[2018-07-11 06:07] LABS: Basophils % 0.5 %; Eosinophils # 0.1 K/mcL (0.0-0.6); Eosinophils % 0.8 %; Hematocrit 45.6 % (35.3-44.9); Hemoglobin 15.8 g/dL (11.5-15.4); Immature Granulocytes % 0.4 % (0-4); Lymphocytes # 2.1 K/mcL (0.6-4.6); Lymphocytes % 24.6 %; Mean Corpuscular HGB Conc 34.6 g/dL (31.6-35.5); Mean Corpuscular Hemoglobin 30.2 pg (28.0-33.3); Mean Corpuscular Volume 87.2 fL (83.0-100.0); Monocytes # 0.7 K/mcL (0.0-1.3); Monocytes % 8.5 %; Neutrophils # 5.6 K/mcL (1.6-8.9); Platelet Count 121 K/mcL (140-400); Red Blood Count 5.23 M/mcL (3.82-4.97); Red Cell Distribution Width 12.9 % (11.5-14.5); Segmented Neutrophils % 65.2 %
[2018-07-11 06:28] LABS: Alanine Aminotransferase 18 Units/L (7-52); Albumin 3.2 g/dL (3.5-5.7); Albumin/Globulin Ratio 1.1 (1.1-2.2); Alkaline Phosphatase 83 Units/L (34-104); Aspartate Amino Transferase 21 Units/L (13-39); BUN/Creatinine Ratio 33 (6-26); Bilirubin,Total 1.2 mg/dL (0.3-1.0); Blood Urea Nitrogen 21 mg/dL (8-23); Calcium 8.3 mg/dL (8.6-10.3); Carbon Dioxide 24 mEq/L (23-29); Chloride 101 mEq/L (98-107); Globulin 2.8 g/dL (2.4-3.5); Glucose 269 mg/dL (70-105); Osmolality,Calculated 288 (280-300); Sodium 133 mEq/L (136-145); eGFR For Non-African Americans > 60 (> 60)
[2018-07-11] MEDS: Insulin DETEMIR 100 UNIT/ML X5UNITS SQ SCH (09:30)
[2018-07-11] MEDS: Insulin LISPRO 300 UNITS/3 ML VIAL SQ SCH ×4 (09:30→20:20)
[2018-07-11] MEDS: Aspirin 81 MG TAB.CHEW PO SCH (09:30)
[2018-07-11] MEDS: *HR* Glimepiride 2 MG TABLET PO SCH (09:31)
[2018-07-11] MEDS: Isosorbide MONOnitrate (24 HR) 60 MG TAB.ER.24H PO SCH (09:32)
[2018-07-11] MEDS: Magnesium Oxide 400 MG TABLET PO SCH (09:32)
[2018-07-11] MEDS: Gabapentin 300 MG CAPSULE PO SCH ×3 (09:32→20:20)
[2018-07-11] MEDS: Metoprolol XL (24 HR) Succ 50 MG TAB.ER.24H PO SCH (11:39)
--- NOTE | 2018-07-11 12:36 | Internal Med Progress Note ---
Date of Encounter: 07/11/18 Time of Encounter: : - Assessment and plan (1) Nausea and vomiting Current Visit: Yes Status: Acute Assessment and plan: July 11. Remains resolved. Continue IV fluids use anti-medics as needed. Qualifiers: Vomiting type: unspecified Vomiting Intractability: non-intractable Qualified Code(s): R11.2 - Nausea with vomiting, unspecified (2) Depression Current Visit: Yes Status: Chronic Assessment and plan: July 11. Continue Zoloft Qualifiers: Depression Type: unspecified Qualified Code(s): F32.9 - Major depressive disorder, single episode, unspecified (3) Cirrhosis Current Visit: No Status: Chronic Assessment and plan: July 11. LFTs remain normal. Bilirubin has significantly improved to 1.2. Qualifiers: Hepatic cirrhosis type: unspecified hepatic cirrhosis Ascites presence: without ascites Qualified Code(s): K74.60 - Unspecified cirrhosis of liver (4) DM2 (diabetes mellitus, type 2) Current Visit: No Status: Chronic Assessment and plan: July 11. Hemoglobin A1c was 7.8% on 04/18/2018. Accu-Cheks are above desirable level. Increase Levemir and continue Amaryl, and Glucophage. Do Accu-Cheks with SSI. Qualifiers: Diabetes mellitus long term care social worker insulin use: with long term care social worker use Diabetes mellitus complication status: without complication Qualified Code(s): E11.9 - Type 2 diabetes mellitus without complications; Z79.4 - USP (current) use of insulin (5) Hypertension Current Visit: No Status: Chronic Assessment and plan: July 11. Blood pressure borderline low. Discontinue lisinopril. Continue Toprol-XL. Qualifiers: Hypertension type: essential hypertension Qualified Code(s): I10 - Essential (primary) hypertension (6) Hypomagnesemia Current Visit: No Status: Acute Assessment and plan: July 11. Magnesium level normal at 1.6. Continue magnesium oxide supplement. (7) Hyperbilirubinemia Current Visit: No Status: Acute Assessment and plan: July 11. Improved. Continue present management - Subjective Interval history: July 11. She has no new complaints and states she feels better. - Constitutional Vitals: Temp Pulse Resp BP Pulse Ox 97.7 F 73 16 101/59 95 07/11/18 11:12 07/11/18 11:12 07/11/18 11:12 07/11/18 11:12 07/11/18 11:12 Exam: She is resting comfortably in bed and appears in no acute distress. Affect is overall cheerful. I reviewed her medications and lab results. Internal Medicine: Result - Labs CBC & Chem 7: 07/11/18 05:00 07/11/18 05:00 Labs: Short CBC 07/11/18 Range/Units 05:00 WBC 8.5 (4.3-11.1) K/mcL Hgb 15.8 H (11.5-15.4) g/dL Hct 45.6 H (35.3-44.9) % Plt Count 121 L (140-400) K/mcL Neutrophils # 5.6 (1.6-8.9) K/mcL BMP 07/11/18 05:00 Sodium 133 L Potassium 4.0 Chloride 101 Carbon Dioxide 24 BUN 21 Creatinine 0.63 Glucose 269 H Calcium 8.3 L Liver Function 07/11/18 Range/Units 05:00 Total Bilirubin 1.2 H (0.3-1.0) mg/dL AST 21 (13-39) Units/L ALT 18 (7-52) Units/L Alkaline Phosphatase 83 (34-104) Units/L Albumin 3.2 L (3.5-5.7) g/dL - VTE Reasons for not Prescribing Prophylaxis: Treatment not Indicated - Low risk for VTE Consult Discharge Plan - Plan Referrals: Rebecca Champion CNP [Primary Care Provider] -
[2018-07-12 06:51] VITALS: BP 148/82
[2018-07-12] MEDS: Ondansetron 4 MG/2 ML VIAL IVP PRN (08:34)
[2018-07-12] MEDS: Aspirin 81 MG TAB.CHEW PO SCH (08:38)
[2018-07-12] MEDS: Gabapentin 300 MG CAPSULE PO SCH (08:38)
[2018-07-12] MEDS: Metoprolol XL (24 HR) Succ 50 MG TAB.ER.24H PO SCH (08:38)
[2018-07-12] MEDS: *HR* Glimepiride 2 MG TABLET PO SCH (08:38)
[2018-07-12] MEDS: Isosorbide MONOnitrate (24 HR) 60 MG TAB.ER.24H PO SCH (08:38)
[2018-07-12] MEDS: Magnesium Oxide 400 MG TABLET PO SCH (08:38)
[2018-07-12] MEDS ORDERED: Insulin DETEMIR 100 UNIT/ML X5UNITS SQ SCH (09:00)
--- NOTE | 2018-07-12 11:00 | Discharge Summary ---
Date of Encounter: 07/12/18 Time of Encounter: 10:50 - Discharge Diagnosis (1) Nausea and vomiting Priority: Primary Status: Resolved Qualifiers: Vomiting type: unspecified Vomiting Intractability: non-intractable Qualified Code(s): R11.2 - Nausea with vomiting, unspecified (2) Depression Priority: Secondary Status: Chronic Qualifiers: Depression Type: unspecified Qualified Code(s): F32.9 - Major depressive disorder, single episode, unspecified (3) Cirrhosis Priority: Secondary Status: Chronic Qualifiers: Hepatic cirrhosis type: unspecified hepatic cirrhosis Ascites presence: without ascites Qualified Code(s): K74.60 - Unspecified cirrhosis of liver (4) DM2 (diabetes mellitus, type 2) Priority: Secondary Status: Chronic Qualifiers: 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 Jenkins is a 62 year old female who came to emergency room stating she had onset of abdominal discomfort with vomiting the evening of July 07. She states she vomited 10-15 times. She is uncertain if there was trace amount of blood in a few episodes of vomiting. She denies diarrhea. She had mid upper abdominal discomfort that she describes as "tightness". Her symptoms continued through July 09. When she did not feel improved she came to emergency room and was evaluated and felt to have UTI. She had mild hyperbilirubinemia and elevated hemoglobin. She was admitted to [facility] floor for ongoing care needs. Initial orders were written by the emergency room physician. I saw her on July 10 and performed the history and physical. She was given IV fluids. Antiemetics were given as needed. She had decrease in symptoms within the first 24 hours and was able to tolerate adequate amount of food and fluids without difficulty by day of discharge. She stated she had missed several doses of Zoloft at home and felt depressed. This was restarted and tolerated well. Accu-Cheks were done. Lantus dose was increased to 20 units daily. Amaryl and Glucophage were continued. Bilirubin decreased to 1.2 on follow-up labs. Magnesium level was normal at 1.6. Blood pressure remained controlled on lisinopril and Toprol. PT and OT evaluations were done. On July 12 word was received from insurance she had been approved to return to [facility] for ongoing care needs. She will follow with me there. - Time Spent with Patient Total time spent providing and/or coordinating discharge services: - Discharge Medications Home Medications: Aspirin 81 mg PO DAILY 05/25/15 [History] Gabapentin [Neurontin] 300 mg PO TID 05/25/15 [History] Metformin [Glucophage] 1,000 mg PO BIDWM 05/25/15 [History] Nitroglycerin 0.4 mg SL Q5MIN 05/25/15 [History] Sertraline HCl [Zoloft] 50 mg PO HS 05/25/15 [History] Simvastatin [Zocor] 20 mg PO HS 05/25/15 [History] Lisinopril [Zestril] 10 mg PO DAILY 08/30/15 [History] Magnesium Oxide [Mag-Ox] 400 mg PO DAILY 30 Days tablet 03/09/18 [Rx] Glimepiride [Amaryl] 1 mg PO DAILY 365 Days tablet 04/14/18 [Rx] Isosorbide MONOnitrate (24 HR) [Imdur] 60 mg PO DAILY 365 Days tab.er.24h 04/14/18 [Rx] Metoprolol Succinate [Toprol Xl] 100 mg PO DAILY 365 Days tab.er.24h 04/14/18 [Rx] Insulin Glargine,Hum.rec.anlog [Lantus Solostar] 20 unit SQ DAILY #0 07/12/18 [Rx] Allergies/Adverse Reactions: Allergy/AdvReac Type Severity Reaction Status Date / Time Horse/Equine Containing Allergy Sneezing Verified 06/30/18 19:03 Products latex Allergy Rash Verified 06/30/18 19:03 Date of admission: 07/09/18 23:52 Primary care physician: Rebecca Champion Consults: 07/10/18 15:35 Consult to Occupational Therapy [CONS] Routine Comment: Evaluate, develop and implement POC Reason for Consult: Weakness Does patient have active BEDREST order?: No Is patient medically & hemodynamically stable?: Yes Patient assessed for mobility or mobilized this visit?: Yes Consult to Physical Therapy [CONS] Routine Comment: Evaluate, develop and implement POC Reason for Consult: Weakness Does patient have active BEDREST order?: No Is patient medically & hemodynamically stable?: Yes Patient assessed for mobility or mobilized this visit?: Yes - Constitutional Vitals: Temp Pulse Resp BP Pulse Ox 98.6 F 89 16 148/82 94 07/12/18 06:47 07/12/18 06:47 07/12/18 06:47 07/12/18 06:47 07/12/18 08:01 - Patient Status Disposition: Transfer SNF Condition: Good - Discharge Instructions - Diet and Activity Activity: as per physical therapy Diet: diabetic diet - VTE Reasons for not Prescribing Prophylaxis: Treatment not Indicated - Low risk for VTE
[2018-07-12] MEDS: Insulin LISPRO 300 UNITS/3 ML VIAL SQ SCH ×2 (11:51→12:13)
== END 2018-07-12 12:30 ==
LOC: INPPIK 19:25 → EMEROOPIK 19:25 → INPPIK 07-10 00:10
PROVIDERS: ADMIT Internal Medicine; ATTEND Internal Medicine

== ENCOUNTER 2018-08-09 12:19 | Observation (INO) ==
--- NOTE | 2018-08-09 12:42 | Emergency Department Note ---
Disposition Clinical Impression: Dehydration, Abdominal pain Disposition: Admitted As Inpatient Condition: Fair Time of Disposition: 15:45 Abdominal Pain HPI - General Chief Complaint: ED Nausea/Vomiting/Diarrhea Stated Complaint: Epigastric pain, nausea, Time Seen by Provider: 08/09/18 12:22 Source: patient Mode of arrival: ambulatory Limitations: no limitations Nursing Notes Reviewed: Yes Vital Signs Reviewed: Yes - History of Present Illness HPI Narrative: 63-year-old female just recently released from the nursing care facility was given 1 days care on antibiotics and meds patient now presents here to the emergency room complaining of epigastric abdominal pain patient states that her granddaughter who usually [employer] decides was not available meds together so she has had no medications denies any blurred vision double vision loss vision diarrhea melena hematochezia hematemesis patient states that she is having a severe epigastric pain denies cough cold of flulike symptoms patient states that she's week she started she has allergy Family and friend are here they feel that she needs to be admitted patient though apparently is upset because they didn't get Medicare Medicaid established for her as a result she is not really sure which she needs to get better she said she was not given any scripts and there not really sure to do patient though tells me that she ran out of time and as a result patient is here to the emergency room with severe epigastric pain since she has been a couple days she's too weak and frail pt very poor hx Pt Subjective Complaint: abdominal pain Onset (ago): day(s) Consistency: constant, Worsening Location: epigastric Pain Severity: moderate Pain Scale: 4 Quality: cramping Improves with: nothing Worsens with: nothing Context: other (out of medications and recently released from [facility]) Associated symptoms: Reports: nausea, vomiting. Denies: diarrhea, fever, chills, constipation, dysuria, hematemesis, hematochezia, melena, hematuria, anorexia, syncope Treatments prior to arrival: none - Related Data Home Medications Medication Instructions Recorded Confirmed Aspirin 81 mg PO DAILY 05/25/15 08/09/18 Gabapentin [Neurontin] 300 mg PO TID 05/25/15 08/09/18 Metformin [Glucophage] 1,000 mg PO BIDWM 05/25/15 08/09/18 Nitroglycerin 0.4 mg SL Q5MIN 05/25/15 08/09/18 Sertraline HCl [Zoloft] 50 mg PO HS 05/25/15 08/09/18 Simvastatin [Zocor] 20 mg PO HS 05/25/15 08/09/18 Lisinopril [Zestril] 10 mg PO DAILY 08/30/15 08/09/18 Previous Rx's Medication Instructions Recorded Magnesium Oxide [Mag-Ox] 400 mg PO DAILY 30 Days tablet 03/09/18 Glimepiride [Amaryl] 1 mg PO DAILY 365 Days tablet 04/14/18 Isosorbide MONOnitrate (24 HR) 60 mg PO DAILY 365 Days tab.er.24h 04/14/18 [Imdur] Metoprolol Succinate [Toprol Xl] 100 mg PO DAILY 365 Days 04/14/18 tab.er.24h Insulin Glargine,Hum.rec.anlog 20 unit SQ DAILY #0 07/12/18 [Lantus Solostar] Allergies Allergy/AdvReac Type Severity Reaction Status Date / Time Horse/Equine Containing Allergy Sneezing Verified 06/30/18 19:03 Products latex Allergy Rash Verified 06/30/18 19:03 All systems ED: reviewed and negative except as stated. Review of Systems: As Per HPI Constitutional: Reports: weakness. Denies: fever, chills Eyes: Denies: eye pain ENT ED: Denies: ear pain, throat pain, dental pain Cardiovascular: Reports: chest pain. Denies: palpitations, dyspnea on exertion, edema, syncope, paroxysmal nocturnal dyspnea Respiratory: Reports: cough. Denies: dyspnea, wheezes Gastrointestinal: Reports: abdominal pain, nausea, vomiting Genitourinary: Denies: urgency, dysuria Musculoskeletal: Denies: back pain Integumentary: Denies: rash, abrasion Neurological: Denies: headache, weakness Psychiatric: Denies: anxiety Endocrine: Denies: fatigue Hematological/Lymphatic: Denies: easy bleeding Allergic/Immunologic: Denies: facial swelling Abdominal Pain PMH - Past Medical History Medical history: Reports: asthma, cirrhosis, CVA, diabetes, GERD, hyperlipidemi a, hypertension, liver disease, TIA, other Female Surgical History: Reports: cholecystectomy, other CREW MEMBER history: Reports: no CREW MEMBER history Psychiatric history: Reports: anxiety, depression - Social History Smoking status: 2nd Hand Smoke Exposure Alcohol use: Reports: none Drug use: Reports: none Physical Exam - General Limitations: no limitations General appearance: alert, in no apparent distress, anxious - Head Head exam: atraumatic, normocephalic, normal inspection - Eye Eye exam: Present: normal appearance, PERRL, EOMI - ENT ENT exam: normal exam, normal oropharynx, mucous membranes moist, TM's normal bilaterally, normal external ear exam - Neck Neck exam: Present: normal inspection, full ROM, trachea midline - Chest Chest inspection: Present: normal inspection, symmetric chest wall rise - Respiratory Respiratory exam: Present: normal lung sounds bilaterally - Cardiovascular Cardiovascular exam: Present: regular rate, normal rhythm, normal heart sounds - Abdominal Exam Abdominal exam: Present: soft, Non-Tender, tenderness, normal bowel sounds. Absent: mass, pulsatile mass Abdominal tenderness: Present: epigastrium, moderate - Extremities Exam Extremities exam: Present: normal inspection, full ROM, normal capillary refill. Absent: tenderness, pedal edema, joint swelling, calf tenderness - Expanded Lower Extremity Exam Neurovascular/Tendon exam: Present: normal capillary refill, normal fine/light touch Gait: observed and normal - Back Exam Back exam: Present: normal inspection, full ROM. Absent: muscle spasm - Neurological Exam Neurological exam: Present: alert, oriented X3, CN II-XII intact, normal gait - Psychiatric Psychiatric exam: Present: normal affect, normal mood - Skin Skin exam: Present: warm, dry, intact, normal color Course Course Narrative: Patient was seen and evaluated mobile laboratory data was obtained with completion of the laboratory results the patient was admitted to service of Dr. Matthew to see if we get her back on her medications get her abdominal pain under control no evidence of pancreatitis at this time admission MedSur Vital Signs Temperature 97.5 F L 08/09/18 12:22 Pulse Rate 101 08/09/18 12:22 Respiratory Rate 20 08/09/18 12:22 Blood Pressure 183/104 08/09/18 12:22 O2 Sat by Pulse Oximetry 97 08/09/18 12:22 Temperature 97.5 F L 08/09/18 12:22 Pulse Rate 71 08/09/18 15:29 Respiratory Rate 16 08/09/18 15:29 Blood Pressure 152/77 08/09/18 15:29 O2 Sat by Pulse Oximetry 95 08/09/18 15:29 Oxygen Delivery Oxygen Delivery Room Air Abdominal Pain - Differential Diagnosis Differential Diagnosis: Likely: abdominal pain non-specific, constipation, colonic obstruction, gastroenteritis, small bowel obstruction, other (dehydrtion) - Medical Records Medical records reviewed: Yes I reviewed the patient's medical records. - Lab Data Lab results reviewed: Yes I reviewed the patient's lab results. Result diagrams: 08/09/18 13:00 08/09/18 13:00 Lab Results 08/09/18 08/09/18 08/09/18 Range/Units 13:00 13:00 13:00 WBC 6.8 (4.3-11.1) K/mcL RBC 5.46 H (3.82-4.97) M/mcL Hgb 16.5 H (11.5-15.4) g/dL Hct 47.9 H (35.3-44.9) % MCV 87.7 (83.0-100.0) fL MCH 30.2 (28.0-33.3) pg MCHC 34.4 (31.6-35.5) g/dL RDW 13.7 (11.5-14.5) % Plt Count 129 L (140-400) K/mcL MPV 10.5 (9.4-12.4) fL Immature Gran % 0.1 (0-4) % Seg Neutrophils % 72.2 % Lymphocytes % 20.1 % Monocytes % 7.1 % Eosinophils % 0.1 % Basophils % 0.4 % Neutrophils # 4.9 (1.6-8.9) K/mcL Lymphocytes # 1.4 (0.6-4.6) K/mcL Monocytes # 0.5 (0.0-1.3) K/mcL Eosinophils # 0.0 (0.0-0.6) K/mcL Basophils # 0.0 (0.0-0.2) K/mcL PT (9.4-12.1) Seconds INR APTT 29.1 (26.0-36.0) Seconds Sodium 134 L (136-145) mEq/L Potassium 5.2 H (3.5-5.1) mEq/L Chloride 100 (98-107) mEq/L Carbon Dioxide 24 (23-29) mEq/L BUN 19 (8-23) mg/dL Creatinine 0.69 (0.60-1.20) mg/dL Est GFR ( Amer) > 60 (> 60) Est GFR (Non-Af Amer) > 60 (> 60) BUN/Creatinine Ratio 28 H (6-26) Glucose 346 H (70-105) mg/dL Calculated Osmolality 294 (280-300) Calcium 9.4 (8.6-10.3) mg/dL Total Bilirubin 1.8 H (0.3-1.0) mg/dL AST 26 (13-39) Units/L ALT 25 (7-52) Units/L Alkaline Phosphatase 92 (34-104) Units/L Troponin I (< 0.04) ng/mL Serum Total Protein 7.4 (6.4-8.9) g/dL Albumin 3.9 (3.5-5.7) g/dL Globulin 3.5 (2.4-3.5) g/dL Albumin/Globulin Ratio 1.1 (1.1-2.2) Lipase (11-82) Units/L TSH (0.340-5.600) mcIU/mL Urine Color (Yellow) Urine Clarity (Clear) Urine pH (5.0-8.0) pH Units Ur Specific [place] (1.010-1.025) Urine Protein (Neg-Trace) mg/dL Urine Glucose (UA) (Normal) mg/dL Urine Ketones (Negative) mg/dL Urine Blood (Negative) Urine Nitrite (Negative) Urine Bilirubin (Negative) Urine Urobilinogen (Normal) mg/dL Ur Leukocyte Esterase (Negative) Urine Microscopic RBC (0-3) per hpf Urine Microscopic WBC (0-3) per hpf Ur Squamous Epith Cells (None-Few) per lpf Urine Bacteria (None-Few) per hpf Urine Mucus (Few) Urine Yeast (None Seen) per hpf Ur Culture Indicated? (NO) 08/09/18 08/09/18 08/09/18 Range/Units 13:00 13:00 14:39 WBC (4.3-11.1) K/mcL RBC (3.82-4.97) M/mcL Hgb (11.5-15.4) g/dL Hct (35.3-44.9) % MCV (83.0-100.0) fL MCH (28.0-33.3) pg MCHC (31.6-35.5) g/dL RDW (11.5-14.5) % Plt Count (140-400) K/mcL MPV (9.4-12.4) fL Immature Gran % (0-4) % Seg Neutrophils % % Lymphocytes % % Monocytes % % Eosinophils % % Basophils % % Neutrophils # (1.6-8.9) K/mcL Lymphocytes # (0.6-4.6) K/mcL Monocytes # (0.0-1.3) K/mcL Eosinophils # (0.0-0.6) K/mcL Basophils # (0.0-0.2) K/mcL PT 14.0 H (9.4-12.1) Seconds INR 1.2 APTT (26.0-36.0) Seconds Sodium (136-145) mEq/L Potassium (3.5-5.1) mEq/L Chloride (98-107) mEq/L Carbon Dioxide (23-29) mEq/L BUN (8-23) mg/dL Creatinine (0.60-1.20) mg/dL Est GFR ( Amer) (> 60) Est GFR (Non-Af Amer) (> 60) BUN/Creatinine Ratio (6-26) Glucose (70-105) mg/dL Calculated Osmolality (280-300) Calcium (8.6-10.3) mg/dL Total Bilirubin (0.3-1.0) mg/dL AST (13-39) Units/L ALT (7-52) Units/L Alkaline Phosphatase (34-104) Units/L Troponin I < 0.03 (< 0.04) ng/mL Serum Total Protein (6.4-8.9) g/dL Albumin (3.5-5.7) g/dL Globulin (2.4-3.5) g/dL Albumin/Globulin Ratio (1.1-2.2) Lipase 4 L (11-82) Units/L TSH 1.926 (0.340-5.600) mcIU/mL Urine Color Yellow (Yellow) Urine Clarity Clear (Clear) Urine pH 6.0 (5.0-8.0) pH Units Ur Specific [place] 1.020 (1.010-1.025) Urine Protein 100 H (Neg-Trace) mg/dL Urine Glucose (UA) 500 H (Normal) mg/dL Urine Ketones 80 H (Negative) mg/dL Urine Blood Trace-lysed H (Negative) Urine Nitrite Negative (Negative) Urine Bilirubin Small H (Negative) Urine Urobilinogen 4.0 H (Normal) mg/dL Ur Leukocyte Esterase Negative (Negative) Urine Microscopic RBC 0-3 (0-3) per hpf Urine Microscopic WBC 0-3 (0-3) per hpf Ur Squamous Epith Cells Few (None-Few) per lpf Urine Bacteria Few (None-Few) per hpf Urine Mucus Few (Few) Urine Yeast Few H (None Seen) per hpf Ur Culture Indicated? NO (NO) - Radiology Data Radiology results reviewed: Yes I reviewed the patient's radiology results. ITS Impressions Chest/Abdomen X-ray 08/09/18 12:42 IMPRESSION: 1. No acute abnormality. D/ / Puma Black MD / Puma Black MD Interpreting Provider: Puma Black MD - EKG Data EKG attestation: Yes I reviewed and interpreted this EKG. EKG results narrative: Sinus rhythm nonspecific T-wave ventricular hypertrophy with a rate of 88 CO 154 QRS 113 QT 443 access -51 Critical Care Time Critical Care Time: No
[2018-08-09] MEDS ORDERED: GI Cocktail 40 ML EACH PO ONE (12:43)
[2018-08-09] MEDS ORDERED: Ondansetron 4 MG/2 ML VIAL IVP ONE (12:43)
[2018-08-09] MEDS ORDERED: 0.9 % Sodium Chloride 1,000 ML IVC SCH (12:45)
[2018-08-09 13:28] LABS: Basophils % 0.4 %; Eosinophils % 0.1 %; Hematocrit 47.9 % (35.3-44.9); Hemoglobin 16.5 g/dL (11.5-15.4); Immature Granulocytes % 0.1 % (0-4); Lymphocytes # 1.4 K/mcL (0.6-4.6); Lymphocytes % 20.1 %; Mean Corpuscular HGB Conc 34.4 g/dL (31.6-35.5); Mean Corpuscular Hemoglobin 30.2 pg (28.0-33.3); Mean Corpuscular Volume 87.7 fL (83.0-100.0); Mean Platelet Volume 10.5 fL (9.4-12.4); Monocytes # 0.5 K/mcL (0.0-1.3); Monocytes % 7.1 %; Neutrophils # 4.9 K/mcL (1.6-8.9); Platelet Count 129 K/mcL (140-400); Red Blood Count 5.46 M/mcL (3.82-4.97); Red Cell Distribution Width 13.7 % (11.5-14.5); Segmented Neutrophils % 72.2 %
[2018-08-09 13:43] LABS: INR 1.2; Lipase 4 Units/L (11-82)
[2018-08-09 13:44] LABS: Alanine Aminotransferase 25 Units/L (7-52); Albumin 3.9 g/dL (3.5-5.7); Albumin/Globulin Ratio 1.1 (1.1-2.2); Alkaline Phosphatase 92 Units/L (34-104); Aspartate Amino Transferase 26 Units/L (13-39); BUN/Creatinine Ratio 28 (6-26); Bilirubin,Total 1.8 mg/dL (0.3-1.0); Blood Urea Nitrogen 19 mg/dL (8-23); Calcium 9.4 mg/dL (8.6-10.3); Carbon Dioxide 24 mEq/L (23-29); Chloride 100 mEq/L (98-107); Globulin 3.5 g/dL (2.4-3.5); Glucose 346 mg/dL (70-105); Osmolality,Calculated 294 (280-300); Potassium 5.2 mEq/L (3.5-5.1); Sodium 134 mEq/L (136-145); Total Protein 7.4 g/dL (6.4-8.9); eGFR For Non-African Americans > 60 (> 60)
[2018-08-09 13:48] LABS: Troponin I < 0.03 ng/mL (< 0.04)
[2018-08-09 14:01] LABS: Thyroid Stimulating Hormone 1.926 mcIU/mL (0.340-5.600)
[2018-08-09 14:43] LABS: Bilirubin,Urine Small (Negative); Blood,Urine Trace-lysed (Negative); Clarity,Urine Clear (Clear); Color,Urine Yellow (Yellow); Glucose,Urine (UA) 500 mg/dL (Normal); Ketones,Urine 80 mg/dL (Negative); Leukocyte Esterase,Urine Negative (Negative); Nitrite,Urine Negative (Negative); Protein,Urine 100 mg/dL (Neg-Trace)
[2018-08-09 14:54] LABS: Bacteria,Urine Few per hpf (None-Few); Mucus,Urine Few (Few); RBC,Urine 0-3 per hpf (0-3); Squamous Epithelial Cell,Urine Few per lpf (None-Few); WBC,Urine 0-3 per hpf (0-3); Yeast,Urine Few per hpf (None Seen)
[2018-08-09] MEDS ORDERED: Pantoprazole 40 MG VIAL IVP ONE (15:05)
[2018-08-09] MEDS ORDERED: Naloxone 0.4 MG/ML INJ IVP PRN (15:05)
[2018-08-09] MEDS ORDERED: Nitroglycerin 0.4 MG TAB.SUBL SL SCH (15:05)
[2018-08-09] MEDS: 0.9 % Sodium Chloride 1,000 ML IVC SCH (16:00)
--- NOTE | 2018-08-09 16:00 | Electrocardiograph Report ---
[address] [address] Test Date: 2018-08-09 Pat Name: Fanny Jenkins Department: EDP-12 Room: [facility] Gender: F Pamphlet Distributor: : [id number] Requested By: Grace Mabry Order Number: [id number] Reading MD: Gayle Manley Measurements Intervals [place] Rate: 88 P: 48 SD: 154 QRS: -51 QRSD: 113 T: -22 QT: 443 QTc: 536 Interpretive Statements Sinus rhythm Left anterior fascicular block Intraventricular conduction delay Nonspecific ST-T wave changes Electronically Signed On 08-09-2018 15:58:47 EST by Gayle Manley
[2018-08-09] MEDS: Gabapentin 300 MG CAPSULE PO SCH ×2 (17:36→21:42)
[2018-08-09] MEDS: *HR* Metformin 500 MG TABLET PO SCH (17:36)
[2018-08-10] MEDS: 0.9 % Sodium Chloride 1,000 ML IVC SCH ×2 (00:22→09:06)
[2018-08-10] MEDS: Ondansetron 4 MG/2 ML VIAL IVP PRN ×3 (00:23→21:25)
[2018-08-10 05:24] LABS: Basophils % 0.4 %; Eosinophils # 0.1 K/mcL (0.0-0.6); Hematocrit 40.1 % (35.3-44.9); Hemoglobin 13.7 g/dL (11.5-15.4); Immature Granulocytes % 0.1 % (0-4); Lymphocytes # 2.4 K/mcL (0.6-4.6); Lymphocytes % 31.6 %; Mean Corpuscular HGB Conc 34.2 g/dL (31.6-35.5); Mean Corpuscular Hemoglobin 30.2 pg (28.0-33.3); Mean Corpuscular Volume 88.3 fL (83.0-100.0); Mean Platelet Volume 10.6 fL (9.4-12.4); Monocytes # 0.8 K/mcL (0.0-1.3); Monocytes % 10.2 %; Neutrophils # 4.3 K/mcL (1.6-8.9); Platelet Count 118 K/mcL (140-400); Red Blood Count 4.54 M/mcL (3.82-4.97); Segmented Neutrophils % 56.7 %
[2018-08-10 06:00] LABS: BUN/Creatinine Ratio 30 (6-26); Blood Urea Nitrogen 19 mg/dL (8-23); Calcium 7.9 mg/dL (8.6-10.3); Carbon Dioxide 23 mEq/L (23-29); Chloride 106 mEq/L (98-107); Glucose 245 mg/dL (70-105); Osmolality,Calculated 288 (280-300); Potassium 3.8 mEq/L (3.5-5.1); Sodium 134 mEq/L (136-145); eGFR For Non-African Americans > 60 (> 60)
[2018-08-10] MEDS: *HR* Glimepiride 2 MG TABLET PO SCH (08:03)
[2018-08-10] MEDS: Isosorbide MONOnitrate (24 HR) 60 MG TAB.ER.24H PO SCH (08:04)
[2018-08-10] MEDS: *HR* Metformin 500 MG TABLET PO SCH ×2 (08:04→16:17)
[2018-08-10] MEDS: Metoprolol XL (24 HR) Succ 50 MG TAB.ER.24H PO SCH (08:04)
[2018-08-10] MEDS: Gabapentin 300 MG CAPSULE PO SCH ×3 (08:04→20:18)
[2018-08-10] MEDS: Aspirin 81 MG TAB.CHEW PO SCH (08:04)
[2018-08-10] MEDS: Magnesium Oxide 400 MG TABLET PO SCH (08:05)
[2018-08-10] MEDS: Insulin DETEMIR 100 UNIT/ML X5UNITS SQ SCH (08:13)
--- NOTE | 2018-08-10 10:26 | Internal Med History&Physical ---
Date of Encounter: 08/10/18 Time of Encounter: 10:00 Assessment and Plan (1) Abdominal pain Current visit: Yes Status: Acute Improved from admission. Etiology not obvious. This has been occurring intermittently for several years. CT and ultrasound imaging has been unremarkable earlier this year. She missed a follow-up appointment with roof bolting coal miner earlier this month. This can be rescheduled as an outpatient. Qualifiers: Abdominal location: unspecified location Qualified Code(s): R10.9 - Unspecified abdominal pain (2) Cirrhosis Current visit: No Status: Chronic Present secondary to complications of fatty liver disease. Continue to monitor. Qualifiers: Hepatic cirrhosis type: unspecified hepatic cirrhosis Ascites presence: without ascites Qualified Code(s): K74.60 - Unspecified cirrhosis of liver (3) DM2 (diabetes mellitus, type 2) Current visit: No Status: Chronic Hemoglobin A1c was 9.4% 07/18/2018. Continue Amaryl, Glucophage, Lantus, and Accu-Cheks with SSI. Qualifiers: Diabetes mellitus halfway insulin use: with halfway use Diabetes mellitus complication status: without complication Qualified Code(s): E11.9 - Type 2 diabetes mellitus without complications; Z79.4 - retirement (current) use of insulin (4) Low vitamin D level Current visit: No Status: Acute Vitamin D level was 20 on 07/18/2018. Start vitamin D supplement. (5) Hypomagnesemia Current visit: No Status: Acute Magnesium level was 1.4 on 07/18/2018. Continue magnesium oxide and recheck labs in a.m.. (6) Hyponatremia Current visit: No Status: Acute Present intermittently since May 2015. Asymptomatic. Continue to monitor. (7) Hyperbilirubinemia Current visit: No Status: Acute Present intermittently since March 2016 without other LFT abnormalities. Question if Gilbert syndrome. Internal Medicine - H&P: HPI Chief complaint: Nausea and abdominal pain Admitted From: Emergency Dept Plans for Post Hospital Care: Home History of present illness: Ms. Jenkins is a 63 year old female who came to emergency room stating she had 4-5 day history of abdominal discomfort and nausea without vomiting. She reports she developed loose stools last evening. She was evaluated in emergency room and was admitted to [facility] floor for ongoing care needs. She was hospitalized [facility] approximately 4 weeks ago with similar complaints. 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 Hepatitis testing October 2017 was negative for hepatitis A, B, and C. She had a hepatic stent placed for possible bile leak in 2009. She had abdominal/pelvic CT scan 07/09/2018 which showed no acute findings. Liver ultrasound 09/15/2017 showed no acute findings with cirrhotic morphology of the liver seen. EGD 12/19/2017 showed esophagitis and gastritis of the antrum. She reports a colonoscopy has been done in the past but does not recall the date. She states it was unremarkable. She denies disorders of her pancreas. She had cholecystectomy 2009. Past Med Surg Social Fam HX - Past Medical History Medical history: asthma, cirrhosis, CVA, diabetes, GERD, hyperlipidemia, hypertension, liver disease, TIA, other Additional medical history: Metabolic syndrome Psychiatric history: anxiety, depression - Past Surgical History Surgical History: cholecystectomy Additional surgical history: cardiac cath- no stents - Social History Smoking Status: 2nd Hand Smoke Exposure Smokeless Tobacco Status: No Alcohol use: none Drug use: none - Family History Father History Unknown: Yes Family Member Ethnicity: Non- Living Status: Unknown Mother Adopted: No Family Member Ethnicity: Non- Living Status: Age at : 72 Cause of : MS Hx Family Cardiac Disorders: Yes Hx Family Respiratory Disorders: Yes Hx Family Cancer: No Hx Family GI Disorders: No Hx Family Genitourinary Disorders: No Hx Family Endocrine Disorder: No Hx Family Musculoskeletal Disorders: No Hx Family Neuromuscular Disorders: No Hx Family Neurologic Disorders: No Hx Family HEENT Disorders: No Hx Family Autoimmune Disorders: No Hx Family Reproductive Disorders: No Hx Family Psychosocial Disorders: No Hx Family Medical Disorders: No Internal Medicine - H&P: Meds Aspirin 81 mg PO DAILY 05/25/15 [History] Gabapentin [Neurontin] 300 mg PO TID 05/25/15 [History] Metformin [Glucophage] 1,000 mg PO BIDWM 05/25/15 [History] Nitroglycerin 0.4 mg SL Q5MIN 05/25/15 [History] Sertraline HCl [Zoloft] 50 mg PO HS 05/25/15 [History] Simvastatin [Zocor] 20 mg PO HS 05/25/15 [History] Lisinopril [Zestril] 10 mg PO DAILY 08/30/15 [History] Magnesium Oxide [Mag-Ox] 400 mg PO DAILY 30 Days tablet 03/09/18 [Rx] Glimepiride [Amaryl] 1 mg PO DAILY 365 Days tablet 04/14/18 [Rx] Isosorbide MONOnitrate (24 HR) [Imdur] 60 mg PO DAILY 365 Days tab.er.24h 04/14/18 [Rx] Metoprolol Succinate [Toprol Xl] 100 mg PO DAILY 365 Days tab.er.24h 04/14/18 [ Rx] Insulin Glargine,Hum.rec.anlog [Lantus Solostar] 20 unit SQ DAILY #0 07/12/18 [Rx] Allergy/AdvReac Type Severity Reaction Status Date / Time Horse/Equine Containing Allergy Sneezing Verified 06/30/18 19:03 Products latex Allergy Rash Verified 06/30/18 19:03 All Systems PM: A 10-system review of systems was performed and is negative for pertinent findings except as documented above in the HPI. Review of systems: Review of systems from her February 2018 [facility] hospitalization were reviewed and revised as below. Gen.: Her weight has been stable at approximately 68 kg since the February 2018 hospitalization Cardiovascular: She has history of hypertension but denies MS heart failure angina DVT or pulmonary embolus. Echocardiogram done 06/15/2016 showed LVEF of 60-65% with mild diastolic dysfunction reported. There was mild aortic regurgitation and mild mitral regurgitation. The estimate RVSP was 25 mmHg. The interventricular septum thickness was increased at 1.37 cm. Posterior wall thickness was normal at 1.08 cm. Regadenoson stress test 06/15/2016 showed EKG and perfusion imaging negative for ischemia. Respiratory: She is a lifelong nonsmoker. She thinks she was told she had COPD in the past but does not use home oxygen. She denies other lung disease. GI: As per history of present illness : She denies hematuria dysuria or kidney stones. She reports frequent urination. 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 She denies neurologic deficits. She denies seizures. Endocrine: She was diagnosed with DM 2 approximately 2008. She has hyperlipidem ia but denies thyroid disease Hematology/oncology: She denies blood disorders cancers or anemia Psychiatric: She has anxiety and depression but denies other mental health issues. [place] skeletal: She has DJD but denies gout or other bone joint or muscle disorders. - Constitutional Vitals: Temp Pulse Resp BP Pulse Ox 98.4 F 72 16 130/77 98 08/10/18 10:08 08/10/18 10:08 08/10/18 10:08 08/10/18 10:08 08/10/18 10:08 Exam: Gen.: She is a well-developed well-nourished female resting comfortably in bed who appears in no acute distress HEENT: Head is atraumatic and normocephalic. Eyes: EOMI. There is no scleral icterus. Mouth: Mucosa is moist. Neck: Supple and nontender. There is no thyromegaly or adenopathy noted. Heart: Regular without murmurs gallops or ectopics Lungs: No wheezes or crackles are heard. Abdomen: Bowel sounds are present. There is mild discomfort on palpating the lower abdominal area. No masses or guarding are noted. Extremities: There is no cyanosis edema or clubbing noted. Dorsalis pedis and posttibial pulses are 1-2 over 2 bilaterally. Neurologic: Mental status: She is talkative and a good historian. Cranial nerves: Smile is symmetric. Forehead wrinkles bilaterally. Tongue protrudes midline. EOMI. Motor: There is no pronator drift. Cerebellar: Finger to nose is intact bilaterally. Skin: Warm and dry Internal Med - H&P Results - Labs CBC & Chem 7: 08/10/18 05:08 08/10/18 05:08 Labs: Short CBC 08/09/18 08/10/18 Range/Units 13:00 05:08 WBC 6.8 7.7 (4.3-11.1) K/mcL Hgb 16.5 H 13.7 D (11.5-15.4) g/dL Hct 47.9 H 40.1 (35.3-44.9) % Plt Count 129 L 118 L (140-400) K/mcL Neutrophils # 4.9 4.3 (1.6-8.9) K/mcL BMP 08/09/18 08/10/18 13:00 05:08 Sodium 134 L 134 L Potassium 5.2 H 3.8 D Chloride 100 106 Carbon Dioxide 24 23 BUN 19 19 Creatinine 0.69 0.63 Glucose 346 H 245 H Calcium 9.4 7.9 L Cardiac Enzymes 08/09/18 Range/Units 13:00 Troponin I < 0.03 (< 0.04) ng/mL Liver Function 08/09/18 Range/Units 13:00 Total Bilirubin 1.8 H (0.3-1.0) mg/dL AST 26 (13-39) Units/L ALT 25 (7-52) Units/L Alkaline Phosphatase 92 (34-104) Units/L Albumin 3.9 (3.5-5.7) g/dL Urine 08/09/18 Range/Units 14:39 Urine Color Yellow (Yellow) Urine Clarity Clear (Clear) Urine pH 6.0 (5.0-8.0) pH Units Ur Specific [place] 1.020 (1.010-1.025) Urine Protein 100 H (Neg-Trace) mg/dL Urine Glucose (UA) 500 H (Normal) mg/dL - Impressions ITS Impressions Chest/Abdomen X-ray 08/09/18 12:42 IMPRESSION: 1. No acute abnormality. D/ / Puma Black MD / Puma Black MD Interpreting Provider: Puma Black MD
[2018-08-10] MEDS ORDERED: Nitroglycerin 0.4 MG TAB.SUBL SL PRN (11:00)
[2018-08-10] MEDS ORDERED: 0.9 % Sodium Chloride 1,000 ML IVC SCH (11:00)
[2018-08-11 05:18] LABS: Basophils % 0.4 %; Eosinophils # 0.2 K/mcL (0.0-0.6); Eosinophils % 2.7 %; Hematocrit 39.7 % (35.3-44.9); Hemoglobin 13.4 g/dL (11.5-15.4); Immature Granulocytes % 0.2 % (0-4); Lymphocytes # 1.9 K/mcL (0.6-4.6); Lymphocytes % 34.8 %; Mean Corpuscular HGB Conc 33.8 g/dL (31.6-35.5); Mean Platelet Volume 10.8 fL (9.4-12.4); Monocytes # 0.5 K/mcL (0.0-1.3); Monocytes % 9.2 %; Neutrophils # 2.9 K/mcL (1.6-8.9); Red Blood Count 4.46 M/mcL (3.82-4.97); Red Cell Distribution Width 13.9 % (11.5-14.5); Segmented Neutrophils % 52.7 %
[2018-08-11 05:24] LABS: Platelet Count 99 K/mcL (140-400)
[2018-08-11 05:38] LABS: Alanine Aminotransferase 22 Units/L (7-52); Albumin 3.4 g/dL (3.5-5.7); Albumin/Globulin Ratio 1.3 (1.1-2.2); Alkaline Phosphatase 80 Units/L (34-104); Aspartate Amino Transferase 21 Units/L (13-39); BUN/Creatinine Ratio 31 (6-26); Bilirubin,Total 0.6 mg/dL (0.3-1.0); Blood Urea Nitrogen 19 mg/dL (8-23); Carbon Dioxide 26 mEq/L (23-29); Chloride 108 mEq/L (98-107); Globulin 2.6 g/dL (2.4-3.5); Glucose 143 mg/dL (70-105); Osmolality,Calculated 295 (280-300); Potassium 3.7 mEq/L (3.5-5.1); Sodium 140 mEq/L (136-145); eGFR For Non-African Americans > 60 (> 60)
[2018-08-11 07:31] VITALS: BP 128/76
[2018-08-11] MEDS ORDERED: Cholecalciferol (D-3) 1,000 UNIT TABLET PO SCH (09:00)
[2018-08-11] MEDS: Metoprolol XL (24 HR) Succ 50 MG TAB.ER.24H PO SCH (09:12)
[2018-08-11] MEDS: Gabapentin 300 MG CAPSULE PO SCH (09:12)
[2018-08-11] MEDS: Isosorbide MONOnitrate (24 HR) 60 MG TAB.ER.24H PO SCH (09:12)
[2018-08-11] MEDS: Magnesium Oxide 400 MG TABLET PO SCH (09:12)
[2018-08-11] MEDS: *HR* Metformin 500 MG TABLET PO SCH (09:12)
[2018-08-11] MEDS: *HR* Glimepiride 2 MG TABLET PO SCH (09:13)
[2018-08-11] MEDS: Aspirin 81 MG TAB.CHEW PO SCH (09:13)
[2018-08-11] MEDS: Insulin DETEMIR 100 UNIT/ML X5UNITS SQ SCH (09:13)
--- NOTE | 2018-08-11 09:40 | Discharge Summary ---
Date of Encounter: 08/11/18 Time of Encounter: 09:30 - Discharge Diagnosis (1) Abdominal pain Priority: Primary Status: Acute Qualifiers: Abdominal location: unspecified location Qualified Code(s): R10.9 - Unspecified abdominal pain (2) Cirrhosis Priority: Secondary Status: Chronic Qualifiers: Hepatic cirrhosis type: unspecified hepatic cirrhosis Ascites presence: without ascites Qualified Code(s): K74.60 - Unspecified cirrhosis of liver (3) DM2 (diabetes mellitus, type 2) Priority: Secondary Status: Chronic Qualifiers: Diabetes mellitus polymer specialist insulin use: with group home use Diabetes mellitus complication status: without complication Qualified Code(s): E11.9 - Type 2 diabetes mellitus without complications; Z79.4 - assisted (current) use of insulin (4) Low vitamin D level Priority: Secondary Status: Acute (5) Hypomagnesemia Priority: Secondary Status: Acute (6) Hyponatremia Priority: Secondary Status: Acute (7) Hyperbilirubinemia Priority: Secondary Status: Acute Hospital course: Ms. Jenkins is a 63 year old female who came to emergency room stating she had 4-5 day history of abdominal discomfort and nausea without vomiting. She reports she developed loose stools last evening. She was evaluated in emergency room and was admitted to [facility] floor for ongoing care needs. Initial orders were written by the emergency room physician. I saw her on August 10 and performed the history and physical. Her abdominal pain was improved when I saw her. The etiology was not obvious. She had adequate oral intake of food and fluids. On August 11 she felt further improved and stable for discharge home. Her total bilirubin improved to 0.6 on August 11. Question if Gilbert syndrome present. She will follow with her PCP Rebecca Champion CNP within 1 week. I encouraged her to follow with Dr. Tiwari for her chronic abdominal discomfort. - Time Spent with Patient Total time spent providing and/or coordinating discharge services: - Discharge Medications Prescriptions: Cholecalciferol (D-3) [Vitamin D] 1,000 unit PO DAILY #30 tablet Home Medications: Aspirin 81 mg PO DAILY 05/25/15 [History] Gabapentin [Neurontin] 300 mg PO TID 05/25/15 [History] Metformin [Glucophage] 1,000 mg PO BIDWM 05/25/15 [History] Nitroglycerin 0.4 mg SL Q5MIN 05/25/15 [History] Sertraline HCl [Zoloft] 50 mg PO HS 05/25/15 [History] Simvastatin [Zocor] 20 mg PO HS 05/25/15 [History] Lisinopril [Zestril] 10 mg PO DAILY 08/30/15 [History] Magnesium Oxide [Mag-Ox] 400 mg PO DAILY 30 Days tablet 03/09/18 [Rx] Glimepiride [Amaryl] 1 mg PO DAILY 365 Days tablet 04/14/18 [Rx] Isosorbide MONOnitrate (24 HR) [Imdur] 60 mg PO DAILY 365 Days tab.er.24h 04/14/18 [Rx] Metoprolol Succinate [Toprol Xl] 100 mg PO DAILY 365 Days tab.er.24h 04/14/18 [Rx] Insulin Glargine,Hum.rec.anlog [Lantus Solostar] 20 unit SQ DAILY #0 07/12/18 [Rx] Cholecalciferol (D-3) [Vitamin D] 1,000 unit PO DAILY #30 tablet 08/11/18 [Rx] Allergies/Adverse Reactions: Allergy/AdvReac Type Severity Reaction Status Date / Time Horse/Equine Containing Allergy Sneezing Verified 06/30/18 19:03 Products latex Allergy Rash Verified 06/30/18 19:03 Date of admission: 08/09/18 14:59 Primary care physician: Rebecca Champion Consults: 08/09/18 15:05 Consult to Gear Inspector [CONS] Routine Reason for SW Consult: dc planning 08/09/18 16:44 Consult to Nutrition [CONS] Routine Comment: Consulting Provider: NUTRITION Reason for Dietary Consult: Other Other:: chronic nausea with weight loss - Constitutional Vitals: Temp Pulse Resp BP Pulse Ox 96.9 F L 76 16 128/76 98 08/11/18 07:29 08/11/18 07:29 08/11/18 07:29 08/11/18 07:29 08/11/18 07:35 - Patient Status Disposition: Home, Self-Care Condition: Fair - Discharge Instructions Follow Up With: Rebecca Champion, ZURDO [Primary Care Provider] - - Diet and Activity Activity: resume usual activities as tolerated Diet: advance to your usual diet
== END 2018-08-11 11:50 | disposition home or self-care (01) ==
LOC: INPPIK 12:19 → EMEROOPIK 12:19 → INPPIK 15:50
PROVIDERS: ADMIT Internal Medicine; ATTEND Internal Medicine

== ENCOUNTER 2018-08-22 00:36 | Observation (INO) ==
[2018-08-22] MEDS ORDERED: 0.9 % Sodium Chloride 1,000 ML IVC ONE (00:46)
[2018-08-22] MEDS ORDERED: Insulin Regular, Human 100 UNIT/ML SQ ONE (00:46)
--- NOTE | 2018-08-22 00:47 | Emergency Department Note ---
Disposition Clinical Impression: Weakness generalized, Hyperglycemia without ketosis Hypertension Qualifiers: Hypertension type: essential hypertension Qualified Code(s): I10 - Essential (primary) hypertension Cirrhosis Qualifiers: Hepatic cirrhosis type: unspecified hepatic cirrhosis Ascites presence: without ascites Qualified Code(s): K74.60 - Unspecified cirrhosis of liver Disposition: Admitted As Inpatient Condition: Fair Referrals: Rebecca Champion CNP [Primary Care Provider] - Forms: ED Satisfaction Letter General Adult HPI - General Chief complaint: ED Fall Stated complaint: Falling at home Time Seen by Provider: 08/22/18 00:44 Source: patient, EMS Mode of arrival: EMS Limitations: no limitations Nursing Notes Reviewed: Yes Vital Signs Reviewed: Yes - History of Present Illness HPI Narrative: Patient presents by EMS with report of her being unable to stand at home. They noted her to have elevated blood sugar and elevated blood pressure. She states she is on a couch and kept falling over to the side on it. She denies any injury. She states she has had similar episodes before and states that it was due to her cirrhosis. She also has a history of previous TIA. She states she has had a nondescript headache which has not been acute or exploding. Denies visual changes. She denies any extremity localized numbness, tingling or weakness but has some chronic tingling to her feet. She denies current chest pain or palpitations but did report some slight chest pain 24 hours ago. She denies fevers or chills. She denies any new abdominal pains but states she has "pain all the time. She has some occasional nausea, vomiting diarrhea which she states is typical for her. She states with her health status she had been in a detention and believes that she was released home on July 28. She did miss a physician appointment and she states she is out of some of her medicines but is not sure which ones. Patient believes that she is out of her blood pressure medications. She has been brought in by EMS and they reported a blood sugar of 453 with a blood pressure 206/129. She told them that she had been off her diabetic medicines and that she had had a chocolate milkshake this evening. Onset (ago): hour(s) - Related Data Home Medications Medication Instructions Recorded Confirmed Aspirin 81 mg PO DAILY 05/25/15 08/09/18 Gabapentin [Neurontin] 300 mg PO TID 05/25/15 08/09/18 Metformin [Glucophage] 1,000 mg PO BIDWM 05/25/15 08/09/18 Nitroglycerin 0.4 mg SL Q5MIN 05/25/15 08/09/18 Sertraline HCl [Zoloft] 50 mg PO HS 05/25/15 08/09/18 Simvastatin [Zocor] 20 mg PO HS 05/25/15 08/09/18 Lisinopril [Zestril] 10 mg PO DAILY 08/30/15 08/09/18 Previous Rx's Medication Instructions Recorded Magnesium Oxide [Mag-Ox] 400 mg PO DAILY 30 Days tablet 03/09/18 Glimepiride [Amaryl] 1 mg PO DAILY 365 Days tablet 04/14/18 Isosorbide MONOnitrate (24 HR) 60 mg PO DAILY 365 Days tab.er.24h 04/14/18 [Imdur] Metoprolol Succinate [Toprol Xl] 100 mg PO DAILY 365 Days 04/14/18 tab.er.24h Insulin Glargine,Hum.rec.anlog 20 unit SQ DAILY #0 07/12/18 [Lantus Solostar] Cholecalciferol (D-3) [Vitamin D] 1,000 unit PO DAILY #30 tablet 08/11/18 Allergies Allergy/AdvReac Type Severity Reaction Status Date / Time Horse/Equine Containing Allergy Sneezing Verified 06/30/18 19:03 Products latex Allergy Rash Verified 06/30/18 19:03 All systems ED: reviewed and negative except as stated. Past Medical History - Past Medical History Attestation: Yes The following information was validated with the patient. Source: patient, old records reviewed, nursing notes reviewed Medical history: Reports: asthma, cirrhosis, CVA, diabetes, GERD, hyperlip idemia, hypertension, liver disease, TIA, other Surgical history: Reports: cholecystectomy Psychiatric history: Reports: anxiety, depression CASING CREW history: Reports: no CASING CREW history - Social History Smoking Status: 2nd Hand Smoke Exposure Smokeless Tobacco Status: No Alcohol use: Reports: none Drug use: Reports: none Physical Exam - General Limitations: no limitations General appearance: alert, in no apparent distress, anxious - Head Head exam: atraumatic, normocephalic, normal inspection - Eye Eye exam: Present: normal appearance, PERRL, EOMI. Absent: scleral icterus, conjunctival injection - ENT ENT exam: normal exam, mucous membranes dry - Neck Neck exam: Present: normal inspection, full ROM, trachea midline. Absent: tenderness, meningismus, lymphadenopathy - Chest Chest inspection: Present: normal inspection, symmetric chest wall rise - Respiratory Respiratory exam: Present: normal lung sounds bilaterally. Absent: respiratory distress, wheezes, prolonged expiratory phase - Cardiovascular Cardiovascular exam: Present: regular rate, normal rhythm, normal heart sounds - Abdominal Exam Abdominal exam: Present: soft, Non-Tender, normal bowel sounds. Absent: tenderness, distention, guarding, rebound, rigidity - Extremities Exam Extremities exam: Present: normal inspection, full ROM, normal capillary refill. Absent: tenderness, pedal edema, calf tenderness - Expanded Lower Extremity Exam Neurovascular/Tendon exam: Present: normal capillary refill. Absent: motor deficit, sensory deficit, tendon deficit Gait: not tested/not observed - Back Exam Back exam: Present: normal inspection, full ROM. Absent: tenderness, CVA tenderness (R), CVA tenderness (L) - Neurological Exam Neurological exam: Present: alert, oriented X3, CN II-XII intact. Absent: motor sensory deficit - Psychiatric Psychiatric exam: Present: normal affect, anxious - Skin Skin exam: Present: warm, dry, intact, normal color. Absent: cyanosis, diapho resis, pallor Course Course Narrative: 0215: Care is discussed with Dr. Matthew. He is in agreement with continued hydration, blood pressure monitoring and diabetic control in the hospital with serial neuro checks. Care has been coordinated to the floor with verbal orders obtained. Vital Signs O2 Sat by Pulse Oximetry 98 08/22/18 00:40 Temperature 98.1 F 08/22/18 00:45 Pulse Rate 94 08/22/18 00:45 Respiratory Rate 16 08/22/18 00:45 Blood Pressure 197/125 08/22/18 00:45 O2 Sat by Pulse Oximetry 98 08/22/18 00:45 Oxygen Delivery Oxygen Delivery Room Air Medical Decision Making - Medical Records Medical records reviewed: Yes I reviewed the patient's medical records. 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 D/ / 03/06/2018 18:50:18 Brittney Newman MD / jane - Lab Data Lab results reviewed: Yes I reviewed the patient's lab results. Result diagrams: 08/22/18 00:54 08/22/18 00:54 Lab Results 08/22/18 08/22/18 08/22/18 Range/Units 00:54 00:54 00:54 WBC 6.0 (4.3-11.1) K/mcL RBC 5.16 H (3.82-4.97) M/mcL Hgb 15.4 (11.5-15.4) g/dL Hct 45.5 H (35.3-44.9) % MCV 88.2 (83.0-100.0) fL MCH 29.8 (28.0-33.3) pg MCHC 33.8 (31.6-35.5) g/dL RDW 13.8 (11.5-14.5) % Plt Count 87 L (140-400) K/mcL MPV 11.8 (9.4-12.4) fL Immature Gran % 0.3 (0-4) % Seg Neutrophils % 75.7 % Lymphocytes % 15.2 % Monocytes % 8.0 % Eosinophils % 0.5 % Basophils % 0.3 % Neutrophils # 4.5 (1.6-8.9) K/mcL Lymphocytes # 0.9 (0.6-4.6) K/mcL Monocytes # 0.5 (0.0-1.3) K/mcL Eosinophils # 0.0 (0.0-0.6) K/mcL Basophils # 0.0 (0.0-0.2) K/mcL VBG pH (7.32-7.42) pH Units VBG pCO2 (41-51) mmHg VBG pO2 (25-50) mmHg VBG HCO3 (21-27) mEq/L Sodium 137 (136-145) mEq/L Potassium 4.2 (3.5-5.1) mEq/L Chloride 100 (98-107) mEq/L Carbon Dioxide 28 (23-29) mEq/L BUN 14 (8-23) mg/dL Creatinine 0.70 (0.60-1.20) mg/dL Est GFR ( Amer) > 60 (> 60) Est GFR (Non-Af Amer) > 60 (> 60) BUN/Creatinine Ratio 20 (6-26) Glucose 423 H (70-105) mg/dL POC Glucose (70-99) mg/dL Calculated Osmolality 303 H (280-300) Lactic Acid (0.5-2.2) mmol/L Calcium 9.8 (8.6-10.3) mg/dL Total Bilirubin 1.0 (0.3-1.0) mg/dL Direct Bilirubin 0.3 H (0.0-0.2) mg/dL Indirect Bilirubin 0.7 (0.0-1.2) mg/dL AST 23 (13-39) Units/L ALT 27 (7-52) Units/L Alkaline Phosphatase 101 (34-104) Units/L Ammonia (16-53) mcmol/L Troponin I < 0.03 (< 0.04) ng/mL Serum Total Protein 7.3 (6.4-8.9) g/dL Albumin 4.0 (3.5-5.7) g/dL Globulin 3.3 (2.4-3.5) g/dL Albumin/Globulin Ratio 1.2 (1.1-2.2) Amylase 24 L (29-103) Units/L Lipase 11 (11-82) Units/L Beta-Hydroxybutyric Acd 0.30 H (0.02-0.27) mmol/L Urine Color (Yellow) Urine Clarity (Clear) Urine pH (5.0-8.0) pH Units Ur Specific [place] (1.010-1.025) Urine Protein (Neg-Trace) mg/dL Urine Glucose (UA) (Normal) mg/dL Urine Ketones (Negative) mg/dL Urine Blood (Negative) Urine Nitrite (Negative) Urine Bilirubin (Negative) Urine Urobilinogen (Normal) mg/dL Ur Leukocyte Esterase (Negative) Urine Microscopic RBC (0-3) per hpf Urine Microscopic WBC (0-3) per hpf Ur Squamous Epith Cells (None-Few) per lpf Urine Bacteria (None-Few) per hpf Ur Culture Indicated? (NO) 08/22/18 08/22/18 08/22/18 Range/Units 00:54 00:54 01:00 WBC (4.3-11.1) K/mcL RBC (3.82-4.97) M/mcL Hgb (11.5-15.4) g/dL Hct (35.3-44.9) % MCV (83.0-100.0) fL MCH (28.0-33.3) pg MCHC (31.6-35.5) g/dL RDW (11.5-14.5) % Plt Count (140-400) K/mcL MPV (9.4-12.4) fL Immature Gran % (0-4) % Seg Neutrophils % % Lymphocytes % % Monocytes % % Eosinophils % % Basophils % % Neutrophils # (1.6-8.9) K/mcL Lymphocytes # (0.6-4.6) K/mcL Monocytes # (0.0-1.3) K/mcL Eosinophils # (0.0-0.6) K/mcL Basophils # (0.0-0.2) K/mcL VBG pH 7.42 (7.32-7.42) pH Units VBG pCO2 44 (41-51) mmHg VBG pO2 33 (25-50) mmHg VBG HCO3 29 H (21-27) mEq/L Sodium (136-145) mEq/L Potassium (3.5-5.1) mEq/L Chloride (98-107) mEq/L Carbon Dioxide (23-29) mEq/L BUN (8-23) mg/dL Creatinine (0.60-1.20) mg/dL Est GFR ( Amer) (> 60) Est GFR (Non-Af Amer) (> 60) BUN/Creatinine Ratio (6-26) Glucose (70-105) mg/dL POC Glucose (70-99) mg/dL Calculated Osmolality (280-300) Lactic Acid 2.1 (0.5-2.2) mmol/L Calcium (8.6-10.3) mg/dL Total Bilirubin (0.3-1.0) mg/dL Direct Bilirubin (0.0-0.2) mg/dL Indirect Bilirubin (0.0-1.2) mg/dL AST (13-39) Units/L ALT (7-52) Units/L Alkaline Phosphatase (34-104) Units/L Ammonia 46 (16-53) mcmol/L Troponin I (< 0.04) ng/mL Serum Total Protein (6.4-8.9) g/dL Albumin (3.5-5.7) g/dL Globulin (2.4-3.5) g/dL Albumin/Globulin Ratio (1.1-2.2) Amylase (29-103) Units/L Lipase (11-82) Units/L Beta-Hydroxybutyric Acd (0.02-0.27) mmol/L Urine Color (Yellow) Urine Clarity (Clear) Urine pH (5.0-8.0) pH Units Ur Specific [place] (1.010-1.025) Urine Protein (Neg-Trace) mg/dL Urine Glucose (UA) (Normal) mg/dL Urine Ketones (Negative) mg/dL Urine Blood (Negative) Urine Nitrite (Negative) Urine Bilirubin (Negative) Urine Urobilinogen (Normal) mg/dL Ur Leukocyte Esterase (Negative) Urine Microscopic RBC (0-3) per hpf Urine Microscopic WBC (0-3) per hpf Ur Squamous Epith Cells (None-Few) per lpf Urine Bacteria (None-Few) per hpf Ur Culture Indicated? (NO) 08/22/18 08/22/18 08/22/18 Range/Units 01:08 01:10 01:15 WBC (4.3-11.1) K/mcL RBC (3.82-4.97) M/mcL Hgb (11.5-15.4) g/dL Hct (35.3-44.9) % MCV (83.0-100.0) fL MCH (28.0-33.3) pg MCHC (31.6-35.5) g/dL RDW (11.5-14.5) % Plt Count (140-400) K/mcL MPV (9.4-12.4) fL Immature Gran % (0-4) % Seg Neutrophils % % Lymphocytes % % Monocytes % % Eosinophils % % Basophils % % Neutrophils # (1.6-8.9) K/mcL Lymphocytes # (0.6-4.6) K/mcL Monocytes # (0.0-1.3) K/mcL Eosinophils # (0.0-0.6) K/mcL Basophils # (0.0-0.2) K/mcL VBG pH (7.32-7.42) pH Units VBG pCO2 (41-51) mmHg VBG pO2 (25-50) mmHg VBG HCO3 (21-27) mEq/L Sodium (136-145) mEq/L Potassium (3.5-5.1) mEq/L Chloride (98-107) mEq/L Carbon Dioxide (23-29) mEq/L BUN (8-23) mg/dL Creatinine (0.60-1.20) mg/dL Est GFR ( Amer) (> 60) Est GFR (Non-Af Amer) (> 60) BUN/Creatinine Ratio (6-26) Glucose (70-105) mg/dL POC Glucose 366 H 355 H (70-99) mg/dL Calculated Osmolality (280-300) Lactic Acid (0.5-2.2) mmol/L Calcium (8.6-10.3) mg/dL Total Bilirubin (0.3-1.0) mg/dL Direct Bilirubin (0.0-0.2) mg/dL Indirect Bilirubin (0.0-1.2) mg/dL AST (13-39) Units/L ALT (7-52) Units/L Alkaline Phosphatase (34-104) Units/L Ammonia (16-53) mcmol/L Troponin I (< 0.04) ng/mL Serum Total Protein (6.4-8.9) g/dL Albumin (3.5-5.7) g/dL Globulin (2.4-3.5) g/dL Albumin/Globulin Ratio (1.1-2.2) Amylase (29-103) Units/L Lipase (11-82) Units/L Beta-Hydroxybutyric Acd (0.02-0.27) mmol/L Urine Color Yellow (Yellow) Urine Clarity Slightly Cloudy A (Clear) Urine pH 7.0 (5.0-8.0) pH Units Ur Specific [place] 1.015 (1.010-1.025) Urine Protein Negative (Neg-Trace) mg/dL Urine Glucose (UA) 500 H (Normal) mg/dL Urine Ketones Negative (Negative) mg/dL Urine Blood Negative (Negative) Urine Nitrite Negative (Negative) Urine Bilirubin Negative (Negative) Urine Urobilinogen 4.0 H (Normal) mg/dL Ur Leukocyte Esterase Negative (Negative) Urine Microscopic RBC 0-3 (0-3) per hpf Urine Microscopic WBC 0-3 (0-3) per hpf Ur Squamous Epith Cells Moderate H (None-Few) per lpf Urine Bacteria Moderate H (None-Few) per hpf Ur Culture Indicated? NO (NO) - Radiology Data Radiology results reviewed: Yes I reviewed the patient's radiology results. CT head is performed without contrast. This demonstrates an old right temporoparietal infarct that is unchanged from previous imaging. I do not see evidence for intracranial bleed, shift, mass or edema. This is on my interpretation. Impressions Head CT 08/22/18 00:44 IMPRESSION: No acute intracranial abnormality. 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 EKG shows normal: sinus rhythm, intervals, QRS complexes, ST-T waves [place]/QRS: left axis deviation Voltage: c/w LVH QRS morphology: poor R-wave progression Interpretation: no acute changes, nonspecific ST-T wave changes
[2018-08-22] MEDS ORDERED: *HR* Labetalol 20 MG/4 ML SYRINGE IVP ONE (00:51)
[2018-08-22] MEDS ORDERED: 0.9 % Sodium Chloride 1,000 ML IVC SCH (01:00)
[2018-08-22 01:03] LABS: VBG HCO3 29 mEq/L (21-27); VBG PCO2 44 mmHg (41-51); VBG PH 7.42 pH Units (7.32-7.42); VBG PO2 33 mmHg (25-50)
[2018-08-22 01:23] LABS: Basophils % 0.3 %; Eosinophils % 0.5 %; Hematocrit 45.5 % (35.3-44.9); Hemoglobin 15.4 g/dL (11.5-15.4); Immature Granulocytes % 0.3 % (0-4); Lymphocytes # 0.9 K/mcL (0.6-4.6); Lymphocytes % 15.2 %; Mean Corpuscular HGB Conc 33.8 g/dL (31.6-35.5); Mean Corpuscular Hemoglobin 29.8 pg (28.0-33.3); Mean Corpuscular Volume 88.2 fL (83.0-100.0); Mean Platelet Volume 11.8 fL (9.4-12.4); Monocytes # 0.5 K/mcL (0.0-1.3); Neutrophils # 4.5 K/mcL (1.6-8.9); Red Blood Count 5.16 M/mcL (3.82-4.97); Red Cell Distribution Width 13.8 % (11.5-14.5); Segmented Neutrophils % 75.7 %
[2018-08-22 01:26] LABS: Platelet Count 87 K/mcL (140-400)
[2018-08-22 01:27] LABS: Alanine Aminotransferase 27 Units/L (7-52); Albumin/Globulin Ratio 1.2 (1.1-2.2); Alkaline Phosphatase 101 Units/L (34-104); Amylase 24 Units/L (29-103); Aspartate Amino Transferase 23 Units/L (13-39); BUN/Creatinine Ratio 20 (6-26); Bilirubin,Direct 0.3 mg/dL (0.0-0.2); Bilirubin,Indirect 0.7 mg/dL (0.0-1.2); Blood Urea Nitrogen 14 mg/dL (8-23); Calcium 9.8 mg/dL (8.6-10.3); Carbon Dioxide 28 mEq/L (23-29); Chloride 100 mEq/L (98-107); Globulin 3.3 g/dL (2.4-3.5); Glucose 423 mg/dL (70-105); Lipase 11 Units/L (11-82); Osmolality,Calculated 303 (280-300); Potassium 4.2 mEq/L (3.5-5.1); Sodium 137 mEq/L (136-145); Total Protein 7.3 g/dL (6.4-8.9); eGFR For Non-African Americans > 60 (> 60)
[2018-08-22 01:30] LABS: Troponin I < 0.03 ng/mL (< 0.04)
[2018-08-22 01:50] LABS: Bilirubin,Urine Negative (Negative); Blood,Urine Negative (Negative); Clarity,Urine Slightly Cloudy (Clear); Color,Urine Yellow (Yellow); Glucose,Urine (UA) 500 mg/dL (Normal); Ketones,Urine Negative (Negative); Leukocyte Esterase,Urine Negative (Negative); Nitrite,Urine Negative (Negative); Protein,Urine Negative (Neg-Trace); Specific Gravity,Urine 1.015 (1.010-1.025)
[2018-08-22 02:07] LABS: Bacteria,Urine Moderate per hpf (None-Few); RBC,Urine 0-3 per hpf (0-3); Squamous Epithelial Cell,Urine Moderate per lpf (None-Few); WBC,Urine 0-3 per hpf (0-3)
[2018-08-22] MEDS ORDERED: *HR* Labetalol 20 MG/4 ML SYRINGE IVP PRN ×2 (02:19→02:49)
[2018-08-22] MEDS ORDERED: Naloxone 0.4 MG/ML INJ IVP PRN (02:49)
[2018-08-22] MEDS ORDERED: Nitroglycerin 0.4 MG TAB.SUBL SL SCH (02:49)
[2018-08-22] MEDS ORDERED: Dextrose Gel 15 GM/37.5 ML TUBE PO PRN ×2 (02:49)
[2018-08-22] MEDS ORDERED: *HR* Dextrose 50 % in Water (Syg) 50 ML SYRINGE IVP PRN (02:49)
[2018-08-22] MEDS ORDERED: D5% in Water 1,000 ML IVC PRN (02:49)
[2018-08-22] MEDS: 0.9 % Sodium Chloride 1,000 ML IVC SCH ×2 (03:43→18:02)
[2018-08-22] MEDS ORDERED: Nitroglycerin 0.4 MG TAB.SUBL SL PRN (04:15)
[2018-08-22] MEDS ORDERED: Ondansetron 4 MG/2 ML VIAL IVP PRN (04:45)
[2018-08-22] MEDS: Insulin LISPRO 300 UNITS/3 ML VIAL SQ SCH ×3 (07:50→16:35)
--- NOTE | 2018-08-22 11:26 | Internal Med History&Physical ---
Date of Encounter: 08/22/18 Time of Encounter: 11:05 Assessment and Plan (1) Multiple falls Current visit: No Status: Acute PT and OT evaluations will be ordered to assess for stability in walking. (2) Cirrhosis Current visit: Yes Status: Chronic Cryptogenic etiology. Abdominal CT 07/09/2018 did not mention fatty liver infiltration. Viral hepatitis workup has been negative. Suspect possible hepatic encephalopathy. Ammonia level in emergency room was normal at 46. Will give trial of rifaximin and lactulose and see if clinical improvement occurs. Qualifiers: Hepatic cirrhosis type: unspecified hepatic cirrhosis Ascites presence: without ascites Qualified Code(s): K74.60 - Unspecified cirrhosis of liver (3) DM2 (diabetes mellitus, type 2) Current visit: No Status: Chronic Hemoglobin A1c was 9.4% on 07/18/2018. Continue Glucophage,, Amaryl, Lantus, and do Accu-Cheks with SSI. Qualifiers: Diabetes mellitus terminal superintendent insulin use: with fdc use Diabetes mellitus complication status: without complication Qualified Code(s): E11.9 - Type 2 diabetes mellitus without complications; Z79.4 - nursing home (current) use of insulin (4) Hypertension Current visit: Yes Status: Chronic Continue Toprol XL. Qualifiers: Hypertension type: essential hypertension Qualified Code(s): I10 - Essential (primary) hypertension (5) Abdominal pain Current visit: No Status: Chronic Chronic but intermittent. Etiology not determined with certainty. Return appointment with corporate travel expert has not been scheduled. Qualifiers: Abdominal location: unspecified location Qualified Code(s): R10.9 - Unspecified abdominal pain Internal Medicine - H&P: HPI Chief complaint: Fall Admitted From: Emergency Dept Plans for Post Hospital Care: Home History of present illness: Ms. Jenkins is a 63 year old female who states she fell at home due to loss of balance and overall weakness. EMS was called and she was brought to emergency room. Evaluation showed hyperglycemia but no leukocytosis, left shift on differential, or evidence of UTI. No acute findings were seen on head CT or chest x-ray. She was admitted to [facility] floor for ongoing care needs. 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 She denies neurologic deficits. She denies seizures. 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 Hepatitis testing October 2017 was negative for hepatitis A, B, and C. She had a hepatic stent placed for possible bile leak in 2009. She had abdominal/pelvic CT scan 07/09/2018 which showed no acute findings. Liver ult rasound 09/15/2017 showed no acute findings with cirrhotic morphology of the liver seen. EGD 12/19/2017 showed esophagitis and gastritis of the antrum. She reports a colonoscopy has been done in the past but does not recall the date. She states it was unremarkable. She denies disorders of her pancreas. She had cholecystectomy 2009. She has had intermittent abdominal pain occurring for several years without definitive etiology determined. She has had intermittent hyperbilirubinemia. Past Med Surg Social Fam HX - Past Medical History Medical history: asthma, cirrhosis, CVA, diabetes, GERD, hyperlipidemia, hypertension, liver disease, TIA, other Additional medical history: Metabolic syndrome Psychiatric history: anxiety, depression - Past Surgical History Surgical History: cholecystectomy Additional surgical history: cardiac cath- no stents - Social History Smoking Status: 2nd Hand Smoke Exposure Smokeless Tobacco Status: No Alcohol use: none Drug use: none - Family History Father Family Member Ethnicity: Non- Living Status: Unknown Mother Adopted: No Family Member Ethnicity: Non- Living Status: Hx Family Cardiac Disorders: Yes Hx Family Respiratory Disorders: Yes Hx Family Cancer: No Hx Family GI Disorders: No Hx Family Endocrine Disorder: No Hx Family Neuromuscular Disorders: No Hx Family Neurologic Disorders: No Hx Family HEENT Disorders: No Hx Family Autoimmune Disorders: No Internal Medicine - H&P: Meds Aspirin 81 mg PO DAILY 05/25/15 [History] Gabapentin [Neurontin] 300 mg PO TID 05/25/15 [History] Metformin [Glucophage] 1,000 mg PO BIDWM 05/25/15 [History] Nitroglycerin 0.4 mg SL Q5MIN 05/25/15 [History] Sertraline HCl [Zoloft] 50 mg PO HS 05/25/15 [History] Simvastatin [Zocor] 20 mg PO HS 05/25/15 [History] Lisinopril [Zestril] 10 mg PO DAILY 08/30/15 [History] Magnesium Oxide [Mag-Ox] 400 mg PO DAILY 30 Days tablet 03/09/18 [Rx] Glimepiride [Amaryl] 1 mg PO DAILY 365 Days tablet 04/14/18 [Rx] Isosorbide MONOnitrate (24 HR) [Imdur] 60 mg PO DAILY 365 Days tab.er.24h 04/14/18 [Rx] Metoprolol Succinate [Toprol Xl] 100 mg PO DAILY 365 Days tab.er.24h 04/14/18 [Rx] Insulin Glargine,Hum.rec.anlog [Lantus Solostar] 20 unit SQ DAILY #0 07/12/18 [Rx] Cholecalciferol (D-3) [Vitamin D] 1,000 unit PO DAILY #30 tablet 08/11/18 [Rx] Allergy/AdvReac Type Severity Reaction Status Date / Time Horse/Equine Containing Allergy Sneezing Verified 06/30/18 19:03 Products latex Allergy Rash Verified 06/30/18 19:03 All Systems PM: A 10-system review of systems was performed and is negative for pertinent findings except as documented above in the HPI. Review of systems: Review of systems from her July 2018 [facility] hospitalization were reviewed and revised as below. Gen.: Her weight has been stable at approximately 68 kg since the February 2018 hospitalization Cardiovascular: She has history of hypertension but denies [place] heart failure angina DVT or pulmonary embolus. Echocardiogram done 06/15/2016 showed LVEF of 60-65% with mild diastolic dysfunction reported. There was mild aortic regurgitation and mild mitral regurgitation. The estimate RVSP was 25 mmHg. The interventricular septum thickness was increased at 1.37 cm. Posterior wall thickness was normal at 1.08 cm. Regadenoson stress test 06/15/2016 showed EKG and perfusion imaging negative for ischemia. Respiratory: She is a lifelong nonsmoker. She thinks she was told she had COPD in the past but does not use home oxygen. She denies other lung disease. GI: As per history of present illness : She denies hematuria dysuria or kidney stones. She reports frequent urination. Neurologic: As per history of present illness Endocrine: She was diagnosed with DM 2 approximately 2008. She has hyperlipidemia but denies thyroid disease Hematology/oncology: She denies blood disorders cancers or anemia Psychiatric: She has anxiety and depression but denies other mental health issues. [place] skeletal: She has DJD but denies gout or other bone joint or muscle disorders. - Constitutional Vitals: Temp Pulse Resp BP Pulse Ox 98.7 F 96 16 136/77 98 08/22/18 11:00 08/22/18 11:00 08/22/18 11:00 08/22/18 11:00 08/22/18 11:00 Exam: Gen.: She is well-developed well-nourished female lying in bed who appears in no acute distress. HEENT: Head is atraumatic and normocephalic. Eyes: EOMI. There is no scleral icterus. Mouth: Mucosa is moist. Neck: Supple and nontender. There is no thyromegaly or adenopathy noted. Heart: Regular with 2 to 3/6 systolic murmur heard at the left sternal border. S1 and S2 are preserved. Lungs: No wheezes or crackles are heard. Abdomen: Soft and nontender. No masses or guarding are noted. Extremities: She is wearing KAJAL hose bilaterally which I did not remove. There is no edema palpated of her legs through KAJAL hose. Neurologic: Mental status: She is lethargic but awakens and answers questions. Her mentation seems slow overall. Cranial nerves: Smile is symmetric. Forehead wrinkles bilaterally. Tongue protrudes midline. EOMI. Motor: There is no pronator drift. Cerebellar: Finger to nose is intact bilaterally. Skin: Warm and dry Internal Med - H&P Results - Labs CBC & Chem 7: 08/22/18 00:54 08/22/18 00:54 Labs: Short CBC 08/22/18 Range/Units 00:54 WBC 6.0 (4.3-11.1) K/mcL Hgb 15.4 (11.5-15.4) g/dL Hct 45.5 H (35.3-44.9) % Plt Count 87 L (140-400) K/mcL Neutrophils # 4.5 (1.6-8.9) K/mcL BMP 08/22/18 00:54 Sodium 137 Potassium 4.2 Chloride 100 Carbon Dioxide 28 BUN 14 Creatinine 0.70 Glucose 423 H Calcium 9.8 Cardiac Enzymes 08/22/18 Range/Units 00:54 Troponin I < 0.03 (< 0.04) ng/mL Liver Function 08/22/18 Range/Units 00:54 Total Bilirubin 1.0 (0.3-1.0) mg/dL Direct Bilirubin 0.3 H (0.0-0.2) mg/dL AST 23 (13-39) Units/L ALT 27 (7-52) Units/L Alkaline Phosphatase 101 (34-104) Units/L Albumin 4.0 (3.5-5.7) g/dL Urine 08/22/18 Range/Units 01:15 Urine Color Yellow (Yellow) Urine Clarity Slightly Cloudy A (Clear) Urine pH 7.0 (5.0-8.0) pH Units Ur Specific Lynch 1.015 (1.010-1.025) Urine Protein Negative (Neg-Trace) mg/dL Urine Glucose (UA) 500 H (Normal) mg/dL - ABG Interpretation ABG results: 08/22/18 01:00 VBG pH 7.42 VBG pCO2 44 VBG pO2 33 VBG HCO3 29 H - Impressions ITS Impressions Head CT 08/22/18 00:44 IMPRESSION: No acute intracranial abnormality. 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
[2018-08-22] MEDS: Metoprolol XL (24 HR) Succ 50 MG TAB.ER.24H PO SCH (13:52)
--- NOTE | 2018-08-22 17:28 | Electrocardiograph Report ---
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
[2018-08-22] MEDS: Lactulose Oral Soln 20 GM/30 ML UDC PO SCH (20:53)
[2018-08-23 05:31] LABS: Basophils % 0.5 %; Eosinophils # 0.1 K/mcL (0.0-0.6); Eosinophils % 1.5 %; Hematocrit 39.1 % (35.3-44.9); Hemoglobin 13.5 g/dL (11.5-15.4); Lymphocytes # 2.2 K/mcL (0.6-4.6); Mean Corpuscular HGB Conc 34.5 g/dL (31.6-35.5); Mean Corpuscular Hemoglobin 30.3 pg (28.0-33.3); Mean Corpuscular Volume 87.7 fL (83.0-100.0); Mean Platelet Volume 12.1 fL (9.4-12.4); Monocytes # 0.6 K/mcL (0.0-1.3); Monocytes % 9.4 %; Neutrophils # 3.1 K/mcL (1.6-8.9); Red Blood Count 4.46 M/mcL (3.82-4.97); Red Cell Distribution Width 13.5 % (11.5-14.5); Segmented Neutrophils % 51.6 %
[2018-08-23 06:23] LABS: Platelet Count 73 K/mcL (140-400)
[2018-08-23 06:33] LABS: BUN/Creatinine Ratio 17 (6-26); Blood Urea Nitrogen 9 mg/dL (8-23); Calcium 8.7 mg/dL (8.6-10.3); Carbon Dioxide 26 mEq/L (23-29); Chloride 103 mEq/L (98-107); Glucose 247 mg/dL (70-105); Osmolality,Calculated 289 (280-300); Potassium 3.6 mEq/L (3.5-5.1); Sodium 136 mEq/L (136-145); eGFR For Non-African Americans > 60 (> 60)
[2018-08-23 06:36] LABS: Platelet Estimate Decreased (Normal)
[2018-08-23] MEDS: Insulin LISPRO 300 UNITS/3 ML VIAL SQ SCH ×3 (08:04→16:18)
[2018-08-23] MEDS: Metoprolol XL (24 HR) Succ 50 MG TAB.ER.24H PO SCH (08:09)
--- NOTE | 2018-08-23 10:07 | Internal Med Progress Note ---
Date of Encounter: 08/23/18 Time of Encounter: 09:55 - Assessment and plan (1) Multiple falls Current Visit: No Status: Acute Assessment and plan: August 23. Continue PT and OT intervention. (2) Cirrhosis Current Visit: Yes Status: Chronic Assessment and plan: August 23. Continue lactulose and rifaximin Qualifiers: Hepatic cirrhosis type: unspecified hepatic cirrhosis Ascites presence: without ascites Qualified Code(s): K74.60 - Unspecified cirrhosis of liver (3) DM2 (diabetes mellitus, type 2) Current Visit: No Status: Chronic Assessment and plan: August 23. Hemoglobin A1c was 9.4% on 07/18/2018. Continue Lantus and Accu- Cheks with SSI. Glucophage has not been restarted because of history of abdominal discomfort. Amaryl dose will be increased to 2 mg daily. Qualifiers: Diabetes mellitus intermediate insulin use: with intermediate use Diabetes mellitus complication status: without complication Qualified Code(s): E11.9 - Type 2 diabetes mellitus without complications; Z79.4 - USP (current) use of insulin (4) Hypertension Current Visit: Yes Status: Chronic Assessment and plan: August 23. Continue Toprol-XL. Qualifiers: Hypertension type: essential hypertension Qualified Code(s): I10 - Essenti al (primary) hypertension (5) Abdominal pain Current Visit: No Status: Chronic Assessment and plan: August 23. Remain off metformin. Follow up with assistant store manager operations. Qualifiers: Abdominal location: unspecified location Qualified Code(s): R10.9 - Unspecified abdominal pain - Subjective Interval history: August 23. She has no new complaints except her right hand feels "numb" - Constitutional Vitals: Temp Pulse Resp BP Pulse Ox 98.2 F 72 18 146/83 97 08/23/18 06:43 08/23/18 06:43 08/23/18 06:43 08/23/18 06:43 08/23/18 06:43 Exam: She is resting comfortably in bed and appears in no acute distress. Her affect is cheerful. She has no pronator drift. Manager Merchandising strength is symmetric. Extremities show no edema through KAJAL hose. I reviewed her medications and lab results. Internal Medicine: Result - Labs CBC & Chem 7: 08/23/18 04:32 08/23/18 04:32 Labs: Short CBC 08/23/18 Range/Units 04:32 WBC 6.0 (4.3-11.1) K/mcL Hgb 13.5 D (11.5-15.4) g/dL Hct 39.1 (35.3-44.9) % Plt Count 73 L (140-400) K/mcL Neutrophils # 3.1 (1.6-8.9) K/mcL BMP 08/23/18 04:32 Sodium 136 Potassium 3.6 Chloride 103 Carbon Dioxide 26 BUN 9 Creatinine 0.54 L Glucose 247 H Calcium 8.7 Consult Discharge Plan - Plan Referrals: Rebecca Champion, VIDEO RECORDER MECHANIC [Primary Care Provider] - 1 week
[2018-08-23] MEDS: *HR* Glimepiride 2 MG TABLET PO SCH (11:25)
[2018-08-23] MEDS: Lactulose Oral Soln 20 GM/30 ML UDC PO SCH (20:44)
[2018-08-24] MEDS: Metoprolol XL (24 HR) Succ 50 MG TAB.ER.24H PO SCH (08:22)
[2018-08-24] MEDS: Insulin LISPRO 300 UNITS/3 ML VIAL SQ SCH ×2 (08:23→11:44)
[2018-08-24] MEDS: *HR* Glimepiride 2 MG TABLET PO SCH (08:23)
[2018-08-24 10:13] VITALS: BP 134/72
--- NOTE | 2018-08-24 14:35 | Discharge Summary ---
Date of Encounter: 08/24/18 Time of Encounter: 14:25 - Discharge Diagnosis (1) Multiple falls Priority: Primary Status: Acute (2) Cirrhosis Priority: Secondary Status: Chronic Qualifiers: Hepatic cirrhosis type: unspecified hepatic cirrhosis Ascites presence: without ascites Qualified Code(s): K74.60 - Unspecified cirrhosis of liver (3) DM2 (diabetes mellitus, type 2) Priority: Secondary Status: Chronic Qualifiers: Diabetes mellitus penitentiary insulin use: with long term care pharmacist use Diabetes mellitus complication status: without complication Qualified Code(s): E11.9 - Type 2 diabetes mellitus without complications; Z79.4 - correction (current) use of insulin (4) Hypertension Priority: Secondary Status: Chronic Qualifiers: Hypertension type: essential hypertension Qualified Code(s): I10 - Essential (primary) hypertension (5) Abdominal pain Priority: Secondary Status: Chronic Qualifiers: Abdominal location: unspecified location Qualified Code(s): R10.9 - Unspecified abdominal pain Hospital course: Ms. Jenkins is a 63 year old female who states she fell at home due to loss of balance and overall weakness. EMS was called and she was brought to emergency room. Evaluation showed hyperglycemia but no leukocytosis, left shift on differential, or evidence of UTI. No acute findings were seen on head CT or chest x-ray. She was admitted to [facility] floor for ongoing care needs. Initial orders were written by the emergency room physician. I saw her on [facility] 8 and performed a history and physical. She had physical therapy and occupational therapy evaluations with ongoing interventions. She made satisfactory progress but it was felt she would benefit from ongoing therapy at SNF. She was started on lactulose and rifaximin empirically to see if symptoms of encephalopathy would improve. She had significant improvement in her mental status by day of discharge. These medications be continued upon discharge to SNF. Glucophage was discontinued because of history of abdominal discomfort. Amaryl dose was increased to 2 milligrams daily. Her abdominal discomfort lessened. She will continue this regimen at discharge. Lantus will be held at discharge. Accu-Cheks with SSI will be continued. On August 24 word was received from her insurance she had been approved to return to [facility] [place] [facility] for ongoing care needs. She will follow with me there. - Time Spent with Patient Total time spent providing and/or coordinating discharge services: - Discharge Medications Home Medications: Aspirin 81 mg PO DAILY 05/25/15 [History] Gabapentin [Neurontin] 300 mg PO TID 05/25/15 [History] Nitroglycerin 0.4 mg SL Q5MIN 05/25/15 [History] Sertraline HCl [Zoloft] 50 mg PO HS 05/25/15 [History] Simvastatin [Zocor] 20 mg PO HS 05/25/15 [History] Magnesium Oxide [Mag-Ox] 400 mg PO DAILY 30 Days tablet 03/09/18 [Rx] Isosorbide MONOnitrate (24 HR) [Imdur] 60 mg PO DAILY 365 Days tab.er.24h 04/14/18 [Rx] Metoprolol Succinate [Toprol Xl] 100 mg PO DAILY 365 Days tab.er.24h 04/14/18 [Rx] Insulin Glargine,Hum.rec.anlog [Lantus Solostar] 20 unit SQ DAILY #0 07/12/18 [Rx] Cholecalciferol (D-3) [Vitamin D] 1,000 unit PO DAILY #30 tablet 08/11/18 [Rx] Glimepiride [Amaryl] 2 mg PO 0800 tablet 08/24/18 [Rx] Lactulose 20 gm PO HS [facility] 08/24/18 [Rx] Rifaximin [Xifaxan] 400 mg PO BID tablet 08/24/18 [Rx] Allergies/Adverse Reactions: Allergy/AdvReac Type Severity Reaction Status Date / Time Horse/Equine Containing Allergy Sneezing Verified 06/30/18 19:03 Products latex Allergy Rash Verified 06/30/18 19:03 Date of admission: 08/22/18 02:28 Primary care physician: Rebecca Champion Consults: 08/22/18 11:48 Consult to Occupational Therapy [CONS] Routine Comment: Evaluate, develop and implement POC Reason for Consult: Weakness, falls Does patient have active BEDREST order?: No Is patient medically & hemodynamically stable?: Yes Patient assessed for mobility or mobilized this visit?: Yes Consult to Physical Therapy [CONS] Routine Comment: Evaluate, develop and implement POC Reason for Consult: Weakness, falls Does patient have active BEDREST order?: No Is patient medically & hemodynamically stable?: Yes Patient assessed for mobility or mobilized this visit?: Yes - Constitutional Vitals: Temp Pulse Resp BP Pulse Ox 97.4 F L 72 99 134/72 97 08/24/18 10:12 08/24/18 10:12 08/24/18 10:12 08/24/18 10:12 08/24/18 09:19 - Patient Status Disposition: Transfer SNF Condition: Fair - Discharge Instructions Follow Up With: Rebecca Champion, DIET CONSULTANT [Primary Care Provider] - 1 week - Diet and Activity Activity: as per physical therapy Diet: diabetic diet
--- NOTE | 2018-08-24 14:42 | Physician Discharge Referral ---
ExtendedCare Referral Info Transfer To: [facility] Provider in Charge: Vipul Provider in Charge after Transfer: PCP (Vipul) - Diagnosis (1) Multiple falls Priority: Primary Status: Acute (2) Cirrhosis Priority: Secondary Status: Chronic (3) DM2 (diabetes mellitus, type 2) Priority: Secondary Status: Chronic (4) Hypertension Priority: Secondary Status: Chronic (5) Abdominal pain Priority: Secondary Status: Chronic Prognosis: Good Aware of Diagnosis: Patient Aware of Prognosis: Patient - Transfer Medications Home Medications: Aspirin 81 mg PO DAILY 05/25/15 [History] Gabapentin [Neurontin] 300 mg PO TID 05/25/15 [History] Nitroglycerin 0.4 mg SL Q5MIN 05/25/15 [History] Sertraline HCl [Zoloft] 50 mg PO HS 05/25/15 [History] Simvastatin [Zocor] 20 mg PO HS 05/25/15 [History] Magnesium Oxide [Mag-Ox] 400 mg PO DAILY 30 Days tablet 03/09/18 [Rx] Isosorbide MONOnitrate (24 HR) [Imdur] 60 mg PO DAILY 365 Days tab.er.24h 04/14/18 [Rx] Metoprolol Succinate [Toprol Xl] 100 mg PO DAILY 365 Days tab.er.24h 04/14/18 [Rx] Insulin Glargine,Hum.rec.anlog [Lantus Solostar] 20 unit SQ DAILY #0 07/12/18 [Rx] Cholecalciferol (D-3) [Vitamin D] 1,000 unit PO DAILY #30 tablet 08/11/18 [Rx] Glimepiride [Amaryl] 2 mg PO 0800 tablet 08/24/18 [Rx] Lactulose 20 gm PO HS udc 08/24/18 [Rx] Rifaximin [Xifaxan] 400 mg PO BID tablet 08/24/18 [Rx] Allergies/Adverse Reactions: Allergy/AdvReac Type Severity Reaction Status Date / Time Horse/Equine Containing Allergy Sneezing Verified 06/30/18 19:03 Products latex Allergy Rash Verified 06/30/18 19:03 - Respiratory Orders Smoking Cessation: Smoking cessation has been advised. For more information, call the [place] Tobacco Quit Line at 5-184-ZROY-NOW. - Lab Orders Lab Orders: Other (include drug levels w/frequency) (Accu-Cheks before meals and at bedtime with SSI.) - Mobility Orders Ambulate - Rehabiliation Orders Rehab Potential: Good Rehab Orders: Evaluation for Physical Therapy, Evaluation for Occupational Therapy - Diet Orders No Concentrated Sweets CERTIFICATION: I certify that the transfer of the above named patient to an Extended Care Facility is necessary for the continuing treatment of the diagnosis listed. The above information is true and accurate reflection of patient's current condition. Confidential - Redisclosure prohibited without a patient's written consent.
== END 2018-08-24 17:25 ==
LOC: EMEROOPIK 00:36 → INPPIK 00:36
PROVIDERS: ADMIT Internal Medicine; ATTEND Internal Medicine